=== PATIENT | male | born 1960 | race African-American/Black ===

== ENCOUNTER 2017-04-10 09:00 | Emergency (ER) | payer MEDICAID ==
[~2017-04-10] VITALS: Ht 177.8 cm; Wt 75.0 kg
[2017-04-10 09:02] VITALS: BP 142/83
== END 2017-04-10 09:45 | disposition home or self-care (01) ==
LOC: ED 09:39
DX: L02.414 Cutaneous abscess of left upper limb (principal)
CPT/HCPCS: 10060; 99283

== ENCOUNTER 2017-08-29 20:41 | Emergency (ER) | payer MEDICAID ==
[~2017-08-29] VITALS: Ht 177.8 cm; Wt 75.0 kg
[~2017-08-29 20:41] MED LIST: CARV3.12 PO; LISI1POW PO
[2017-08-29 20:43] VITALS: BP 180/103
[2017-08-29] MEDS ORDERED: BACITRACIN ZINC OINT 500U/GM, 0.9 GM ONE (21:19)
== END 2017-08-29 22:11 | disposition home or self-care (01) ==
LOC: ED 21:30
DX: S50.861A Insect bite (nonvenomous) of right forearm, initial encounter (principal); I10 Essential (primary) hypertension; J44.9 Chronic obstructive pulmonary disease, unspecified; W57.XXXA Bitten or stung by nonvenomous insect and other nonvenomous arthropods, initial encounter; Y93.89 Activity, other specified; Y92.89 Other specified places as the place of occurrence of the external cause; Y99.8 Other external cause status
CPT/HCPCS: 99281

== ENCOUNTER 2018-01-25 19:51 | Emergency (ER) | payer MEDICAID ==
[~2018-01-25] VITALS: Ht 177.8 cm; Wt 70.0 kg
[2018-01-25 19:57] VITALS: BP 137/85
[2018-01-25] MEDS ORDERED: CEPHALEXIN 500 MG CAPSULE ONE (20:23)
[2018-01-25] MEDS ORDERED: CEPHALEXIN 500 MG CAPSULE PO ONE (20:30)
== END 2018-01-25 20:35 | disposition home or self-care (01) ==
LOC: ED 20:10
DX: L02.414 Cutaneous abscess of left upper limb (principal); I11.9 Hypertensive heart disease without heart failure; J44.9 Chronic obstructive pulmonary disease, unspecified; Z85.9 Personal history of malignant neoplasm, unspecified
CPT/HCPCS: 99283

== ENCOUNTER 2018-07-04 10:21 | Inpatient (IN) | payer MEDICAID ==
[~2018-07-04] VITALS: Ht 177.8 cm; Wt 65.3 kg
[2018-07-04 12:07] LABS: MEAN CORPUSCULAR HEMOGLOBIN 30.7 pg (27.5-34.5); MEAN CORPUSCULAR HGB CONC 34.4 g/dL (33.2-36.2); MEAN CORPUSCULAR VOLUME 89.2 fL (81-97); MEAN PLATELET VOLUME 8.1 fL (7.4-10.4); PLATELET COUNT 385 x10^3/uL (130-400); RED BLOOD COUNT 5.68 x10^6/uL (4.38-5.82); RED CELL DISTRIBUTION WIDTH 15.4 % (9.4-14.8)
[2018-07-04 12:20] LABS: ALANINE AMINOTRANSFERASE 21 U/L (12-78); ALBUMIN 3.5 g/dL (3.4-5.0); ANION GAP 9 mmol/L (5-15); CALCIUM 9.5 mg/dL (8.5-10.1); CHLORIDE 100 mmol/L (98-107); CREATININE 2.58 mg/dL (0.7-1.3); MD YES
[2018-07-04 12:21] LABS: BAND#(MANUAL) 1.44 x10^3/uL; BANDS%(MANUAL) 6 % (0-7); EOS#(MANUAL) 0.24 x10^3/uL (0.0-0.4); EOS% (MANUAL) 1 % (1-7); LYMPH#(MANUAL) 0.96 x10^3/uL (1-3.4); LYMPHS% (MANUAL) 4 % (22-44); MONOS#(MANUAL) 0.72 x10^3/uL (0.3-2.7); MONOS% (MANUAL) 3 % (2-9); SEG#(MANUAL) 20.64 x10^3/uL (1.8-6.8); SEGS% (MANUAL) 86 % (42-75)
[2018-07-04 12:22] LABS: <PLATELET ESTIMATE> ADEQUATE; <PLT MORPHOLOGY> NORMAL PLT MORPH; <RBC MORPHOLOGY> NORMAL; ALKALINE PHOSPHATASE 142 U/L (45-117); BILIRUBIN,TOTAL 1.1 mg/dL (0.2-1.0); PMNS WITH VACUOLES 1+; TOTAL PROTEIN 8.3 g/dL (6.4-8.2)
--- NOTE | 2018-07-04 13:15 | NUR ---
FIRST CONTACT WITH PT. ASSUMING PT CARE AT THIS TIME.
--- NOTE | 2018-07-04 13:17 | NUR ---
58 Y/O MALE PRESENTS TO ED WITH C/O "MY LOWER BACK AND WHERE MY LEG MEET HURT. I AM HAVING TROUBLE CATHING MYSELF. SOMETIMES URINE COMES OUT BEFORE I CAN CATH. IT'S BEEN GOING ON FOR ABOUT 2 DAYS." PT PLACED ON CONT PULSE OX,NIBP. NO C/O N/V/D, TRAUMA, SYNCOPE, CP, SOB.
--- NOTE | 2018-07-04 13:38 | NUR ---
PT RESTING ON GURNEY. NO ACUTE DISTRESS NOTED. PT STATES "I JUST FEEL BAD." NO NEEDS REQUESTED AT THIS TIME. UA SENT TO LAB.
[2018-07-04 13:57] LABS: MICROSCOPIC AUTO
[2018-07-04 14:08] LABS: CULTURE INDICATED? YES
[2018-07-04] MEDS ORDERED: CEFTRIAXONE PMX 1GM/50ML 50 ML ONE (14:50)
--- NOTE | 2018-07-04 14:57 | NUR ---
LATE ENTRY FOR 1440 PT RESTING ON GURMATAMORAS. FRIEND BEDSIDE. NO ACUTE DISTRESS NOTED. NO NEEDS REQUESTED AT THIS TIME.
[2018-07-04] MEDS ORDERED: CEFTRIAXONE PMX 1GM/50ML 50 ML IVPB ONE (15:00)
--- NOTE | 2018-07-04 16:01 | NUR ---
pt resting on gurney. in process of getting PIV ACCESS. PT AWARE OF ABX NEEDED. NO NEEDS REQUESTED AT THIS TIME.
--- NOTE | 2018-07-04 16:40 | NUR ---
PIV ESTABLISHED BY ANOTHER NURSING CENTER TUTOR. PT TOLERATED WITH NO COMPLICATIONS.
--- NOTE | 2018-07-04 16:54 | NUR ---
VARGAS INSERTED. PT TOLERATED WITH NO COMPLICATIONS. BEDSIDE. NO ACUTE DISTRESS NOTED. NO NEEDS REQUESTED AT THIS TIME.
--- NOTE | 2018-07-04 17:49 | NUR ---
PT RESTING ONGURNEY. NO ACUTE DISTRESS NOTED. PILLOW PLACED IN BETWEEN PT LEGS. SIGNIFICANT OTHER BEDSIDE. NO NEEDS REQUESTED AT THIS TIME.
[2018-07-04] MEDS ORDERED: CEFTRIAXONE PMX 2GM/50ML 50 ML IV SCH (18:00)
[2018-07-04] MEDS ORDERED: ONDANSETRON 2MG/ML, 2ML IVPush PRN (18:00)
[2018-07-04] MEDS ORDERED: ONDANSETRON ODT 4 MG PO PRN (18:00)
[2018-07-04] MEDS ORDERED: LABETALOL 5MG/ML, 20ML IVPush PRN (18:00)
[2018-07-04] MEDS ORDERED: POLYETHYLENE GLYCOL 17 GM PACKET PO PRN (18:00)
[2018-07-04 18:03] LABS: FREE T4 (FREE THYROXINE) 1.61 ng/dL (0.76-1.46)
[2018-07-04] MEDS ORDERED: CEFTRIAXONE PMX 2GM/50ML 50 ML ONE (18:58)
[2018-07-04] MEDS ORDERED: HEPARIN 5,000 UNITS/ML, 1ML ONE (18:58)
--- NOTE | 2018-07-04 19:02 | NUR ---
BEDSIDE REPORT TO STANISLAW DAVIS.
--- NOTE | 2018-07-04 19:04 | NUR ---
PT SLEEPING ON GURNEY. DISCUSSED POC WITH SIGNIFICANT OTHER. RESPS EQUAL AND UNLABORED. WILL CONTINUE TO MONITOR.
--- NOTE | 2018-07-04 19:05 | NUR ---
ASSUMED CARE OF PATIENT. RPEORT GIVEN FROM STANISLAW EAGLE SPOKE WITH JANEL MALDONADO (HOSPITALIST) AWAITING ORDERS
--- NOTE | 2018-07-04 19:26 | NUR ---
SPOKE WITH JOEL, INSTRUMENT REPAIR SUPERVISOR PT HAS A 101 TEMP. JOEL TO PUT IN FOR FLUIDS AND TYLENOL. JUSTIN, PRIMARY RN IS AWARE.
[2018-07-04] MEDS ORDERED: ACETAMINOPHEN 500 MG TABLET PO ONE (19:30)
[2018-07-04] MEDS ORDERED: ACETAMINOPHEN 500 MG TABLET ONE (19:31)
--- NOTE | 2018-07-04 19:34 | NUR ---
PT HAD THREE BLANKETS ON WITH THE HEATER. HEATER TURNED OFF. EXPLAINED TO PATIENT THAT HE HAS A FEVER. TYLENOL GIVEN. STANISLAW ANDERSON AWARE. PT TRASFERRED TO FLOOR.
[2018-07-04] MEDS ORDERED: CEFTRIAXONE PMX 1GM/50ML 50 ML IV ONE (20:10)
[2018-07-04] MEDS: SODIUM CHLORIDE 0.9% 1,000 ML IV SCH (20:28)
[2018-07-04] MEDS: HEPARIN 5,000 UNITS/ML, 1ML SQ SCH (20:28)
[2018-07-04 20:43] VITALS: BP 135/82
--- NOTE | 2018-07-04 20:44 | NUR ---
Sage rogers in [facility] - 07/04/18 at 2045 by ELLIE PT STATES, "I WANT TO GO HOME I ONLY LIVE A FEW BLOCKS AWAY. I AM READY TO GO." PT DISCHARGED
[2018-07-05 01:16] VITALS: BP 120/68
[2018-07-05] MEDS: HEPARIN 5,000 UNITS/ML, 1ML SQ SCH ×3 (05:06→22:15)
[2018-07-05 05:43] LABS: MEAN CORPUSCULAR HEMOGLOBIN 30.9 pg (27.5-34.5); MEAN CORPUSCULAR HGB CONC 34.9 g/dL (33.2-36.2); MEAN CORPUSCULAR VOLUME 88.4 fL (81-97); MEAN PLATELET VOLUME 8.8 fL (7.4-10.4); PLATELET COUNT 298 x10^3/uL (130-400); RED BLOOD COUNT 4.97 x10^6/uL (4.38-5.82); RED CELL DISTRIBUTION WIDTH 15.6 % (9.4-14.8)
[2018-07-05 05:48] LABS: CHLORIDE 104 mmol/L (98-107)
[2018-07-05 06:06] LABS: ALANINE AMINOTRANSFERASE 13 U/L (12-78); ALBUMIN 2.6 g/dL (3.4-5.0); ALKALINE PHOSPHATASE 116 U/L (45-117); ANION GAP 9 mmol/L (5-15); BILIRUBIN,TOTAL 0.7 mg/dL (0.2-1.0); CALCIUM 8.4 mg/dL (8.5-10.1); CREATININE 1.62 mg/dL (0.7-1.3); THYROID STIMULATING HORMONE 0.113 mIU/L (0.358-3.740); TOTAL PROTEIN 6.7 g/dL (6.4-8.2)
[2018-07-05 06:24] LABS: BASOPHILS # (AUTO) 0.01 x10^3/uL (0-0.1); BASOPHILS % (AUTO) 0 % (0-1); EOSINOPHILS # (AUTO) 0.06 x10^3/uL (0-0.4); EOSINOPHILS % (AUTO) 0 % (1-7); LYMPHOCYTES # (AUTO) 0.53 x10^3/uL (1-3.4); LYMPHOCYTES % (AUTO) 2 % (22-44); MD SCAN; MONOCYTES # (AUTO) 1.24 x10^3/uL (0.2-0.8); MONOCYTES % (AUTO) 6 % (2-9); NEUTROPHILS % (AUTO) 92 % (42-75)
[2018-07-05] MEDS: SODIUM CHLORIDE 0.9% 1,000 ML IV SCH ×2 (06:38→16:32)
[2018-07-05 07:27] VITALS: BP 108/71
[2018-07-05] MEDS: LISINOPRIL 5 MG TABLET PO SCH (09:22)
[2018-07-05] MEDS: CARVEDILOL 3.125 MG TABLET PO SCH (09:22)
[2018-07-05] MEDS: SENNA/DOCUSATE TABLET PO SCH (09:23)
[2018-07-05 12:50] VITALS: BP 112/70
[2018-07-05] MEDS: CEFTRIAXONE PMX 2GM/50ML 50 ML IV SCH (16:30)
[2018-07-05 19:22] VITALS: BP 108/68
[2018-07-06] MEDS: SODIUM CHLORIDE 0.9% 1,000 ML IV SCH ×3 (00:55→17:35)
[2018-07-06 04:21] VITALS: BP 130/76
[2018-07-06 05:01] LABS: MEAN CORPUSCULAR HGB CONC 34.8 g/dL (33.2-36.2); MEAN CORPUSCULAR VOLUME 89.1 fL (81-97); MEAN PLATELET VOLUME 8.9 fL (7.4-10.4); PLATELET COUNT 301 x10^3/uL (130-400); RED BLOOD COUNT 4.38 x10^6/uL (4.38-5.82); RED CELL DISTRIBUTION WIDTH 15.5 % (9.4-14.8)
[2018-07-06 05:10] LABS: ALBUMIN 2.2 g/dL (3.4-5.0); ANION GAP 8 mmol/L (5-15); CALCIUM 8.4 mg/dL (8.5-10.1); CHLORIDE 104 mmol/L (98-107)
[2018-07-06 05:15] LABS: ALANINE AMINOTRANSFERASE 13 U/L (12-78); ALKALINE PHOSPHATASE 92 U/L (45-117); BILIRUBIN,TOTAL 0.7 mg/dL (0.2-1.0); CREATININE 1.14 mg/dL (0.7-1.3); TOTAL PROTEIN 6.1 g/dL (6.4-8.2)
[2018-07-06 05:26] LABS: BASOPHILS # (AUTO) 0.01 x10^3/uL (0-0.1); BASOPHILS % (AUTO) 0 % (0-1); EOSINOPHILS # (AUTO) 0.28 x10^3/uL (0-0.4); EOSINOPHILS % (AUTO) 2 % (1-7); LYMPHOCYTES % (AUTO) 6 % (22-44); MD SCAN; MONOCYTES # (AUTO) 0.92 x10^3/uL (0.2-0.8); MONOCYTES % (AUTO) 6 % (2-9); NEUTROPHILS # (AUTO) 12.98 x10^3/uL (1.8-6.8); NEUTROPHILS % (AUTO) 86 % (42-75)
[2018-07-06] MEDS: HEPARIN 5,000 UNITS/ML, 1ML SQ SCH ×3 (06:29→22:19)
[2018-07-06] MEDS ORDERED: POTASSIUM CHLORIDE 20 MEQ TAB.ER.PRT PO ONE ×2 (07:00→11:30)
[2018-07-06 08:07] VITALS: BP 133/77
[2018-07-06] MEDS: SENNA/DOCUSATE TABLET PO SCH ×2 (09:00→09:03)
[2018-07-06] MEDS: LISINOPRIL 5 MG TABLET PO SCH (09:03)
[2018-07-06] MEDS: CARVEDILOL 3.125 MG TABLET PO SCH (09:03)
[2018-07-06] MEDS: CEFTRIAXONE PMX 2GM/50ML 50 ML IV SCH (15:32)
[2018-07-06 15:33] VITALS: BP 113/70
[2018-07-06] MEDS ORDERED: ACETAMINOPHEN 325 MG TABLET PO PRN (17:00)
[2018-07-06] MEDS: MEROPENEM 1 GM in SODIUM CHLORIDE 0.9% 100 ML IV SCH (17:35)
[2018-07-06 19:04] VITALS: BP 93/56
[2018-07-07] MEDS: MEROPENEM 1 GM in SODIUM CHLORIDE 0.9% 100 ML IV SCH ×3 (00:39→22:44)
[2018-07-07] MEDS: SODIUM CHLORIDE 0.9% 1,000 ML IV SCH ×3 (00:41→16:23)
[2018-07-07 04:24] VITALS: BP 126/77
[2018-07-07 04:30] LABS: MEAN CORPUSCULAR HEMOGLOBIN 30.3 pg (27.5-34.5); MEAN CORPUSCULAR HGB CONC 34.2 g/dL (33.2-36.2); MEAN CORPUSCULAR VOLUME 88.5 fL (81-97); MEAN PLATELET VOLUME 8.7 fL (7.4-10.4); PLATELET COUNT 345 x10^3/uL (130-400); RED BLOOD COUNT 4.53 x10^6/uL (4.38-5.82); RED CELL DISTRIBUTION WIDTH 15.5 % (9.4-14.8)
[2018-07-07 04:41] LABS: CALCIUM 7.9 mg/dL (8.5-10.1); CHLORIDE 110 mmol/L (98-107)
[2018-07-07 04:47] LABS: ALANINE AMINOTRANSFERASE 18 U/L (12-78); ALKALINE PHOSPHATASE 103 U/L (45-117); ANION GAP 6 mmol/L (5-15); BILIRUBIN,TOTAL 0.4 mg/dL (0.2-1.0); CREATININE 0.94 mg/dL (0.7-1.3); TOTAL PROTEIN 5.8 g/dL (6.4-8.2)
[2018-07-07 04:56] LABS: BASOPHILS # (AUTO) 0.02 x10^3/uL (0-0.1); BASOPHILS % (AUTO) 0 % (0-1); EOSINOPHILS # (AUTO) 0.42 x10^3/uL (0-0.4); EOSINOPHILS % (AUTO) 3 % (1-7); LYMPHOCYTES % (AUTO) 7 % (22-44); MD SCAN; MONOCYTES # (AUTO) 1.09 x10^3/uL (0.2-0.8); MONOCYTES % (AUTO) 9 % (2-9); NEUTROPHILS # (AUTO) 10.01 x10^3/uL (1.8-6.8); NEUTROPHILS % (AUTO) 81 % (42-75)
[2018-07-07] MEDS: HEPARIN 5,000 UNITS/ML, 1ML SQ SCH ×3 (06:07→21:40)
[2018-07-07] MEDS ORDERED: MAGNESIUM SULFATE PMX 4GM/100M 100 ML IV ONE (07:00)
[2018-07-07 07:53] VITALS: BP 143/83
[2018-07-07] MEDS: NEUTRA PHOS K 250 MG TABLET PO SCH ×3 (08:33→21:40)
[2018-07-07] MEDS: LISINOPRIL 5 MG TABLET PO SCH (08:34)
[2018-07-07] MEDS: CARVEDILOL 3.125 MG TABLET PO SCH (08:35)
[2018-07-07] MEDS: SENNA/DOCUSATE TABLET PO SCH (09:00)
[2018-07-07 13:09] VITALS: BP 147/87
[2018-07-07 20:56] VITALS: BP 132/85
[2018-07-08 02:10] VITALS: BP 120/83
[2018-07-08 05:22] LABS: BASOPHILS # (AUTO) 0.06 x10^3/uL (0-0.1); BASOPHILS % (AUTO) 1 % (0-1); EOSINOPHILS # (AUTO) 0.49 x10^3/uL (0-0.4); EOSINOPHILS % (AUTO) 4 % (1-7); LYMPHOCYTES # (AUTO) 1.73 x10^3/uL (1-3.4); LYMPHOCYTES % (AUTO) 16 % (22-44); MD NO; MEAN CORPUSCULAR HEMOGLOBIN 30.2 pg (27.5-34.5); MEAN CORPUSCULAR HGB CONC 34.3 g/dL (33.2-36.2); MEAN CORPUSCULAR VOLUME 88.3 fL (81-97); MEAN PLATELET VOLUME 8.6 fL (7.4-10.4); MONOCYTES # (AUTO) 1.21 x10^3/uL (0.2-0.8); MONOCYTES % (AUTO) 11 % (2-9); NEUTROPHILS # (AUTO) 7.67 x10^3/uL (1.8-6.8); NEUTROPHILS % (AUTO) 69 % (42-75); PLATELET COUNT 381 x10^3/uL (130-400); RED BLOOD COUNT 4.53 x10^6/uL (4.38-5.82); RED CELL DISTRIBUTION WIDTH 15.3 % (9.4-14.8)
[2018-07-08 05:32] LABS: ALBUMIN 2.1 g/dL (3.4-5.0); CALCIUM 7.8 mg/dL (8.5-10.1); CHLORIDE 107 mmol/L (98-107)
[2018-07-08 05:38] LABS: ALANINE AMINOTRANSFERASE 22 U/L (12-78); ALKALINE PHOSPHATASE 86 U/L (45-117); ANION GAP 6 mmol/L (5-15); BILIRUBIN,TOTAL 0.4 mg/dL (0.2-1.0); CREATININE 0.81 mg/dL (0.7-1.3); TOTAL PROTEIN 5.7 g/dL (6.4-8.2)
[2018-07-08] MEDS: MEROPENEM 1 GM in SODIUM CHLORIDE 0.9% 100 ML IV SCH ×3 (05:43→22:46)
[2018-07-08] MEDS: SODIUM CHLORIDE 0.9% 1,000 ML IV SCH ×3 (05:43→14:54)
[2018-07-08] MEDS: HEPARIN 5,000 UNITS/ML, 1ML SQ SCH ×3 (05:44→22:47)
[2018-07-08 08:00] VITALS: BP 131/79
[2018-07-08] MEDS: CARVEDILOL 3.125 MG TABLET PO SCH (08:23)
[2018-07-08] MEDS: LISINOPRIL 5 MG TABLET PO SCH (08:23)
[2018-07-08] MEDS: SENNA/DOCUSATE TABLET PO SCH (08:24)
[2018-07-08] MEDS ORDERED: POTASSIUM CHLORIDE 20 MEQ TAB.ER.PRT PO ONE ×2 (11:30→14:30)
[2018-07-08 13:07] VITALS: BP 134/75
[2018-07-08 20:00] VITALS: BP 135/73
[2018-07-09 00:27] VITALS: BP 143/82
[2018-07-09] MEDS: SODIUM CHLORIDE 0.9% 1,000 ML IV SCH ×3 (01:39→17:02)
[2018-07-09] MEDS: MEROPENEM 1 GM in SODIUM CHLORIDE 0.9% 100 ML IV SCH ×3 (05:56→21:54)
[2018-07-09] MEDS: HEPARIN 5,000 UNITS/ML, 1ML SQ SCH ×3 (05:56→21:54)
[2018-07-09 07:00] VITALS: BP 129/83
[2018-07-09] MEDS: LISINOPRIL 5 MG TABLET PO SCH (08:12)
[2018-07-09] MEDS: CARVEDILOL 3.125 MG TABLET PO SCH (08:12)
[2018-07-09] MEDS: SENNA/DOCUSATE TABLET PO SCH (08:12)
[2018-07-09 08:58] LABS: BASOPHILS # (AUTO) 0.02 x10^3/uL (0-0.1); BASOPHILS % (AUTO) 0 % (0-1); EOSINOPHILS # (AUTO) 0.49 x10^3/uL (0-0.4); EOSINOPHILS % (AUTO) 5 % (1-7); LYMPHOCYTES # (AUTO) 1.62 x10^3/uL (1-3.4); LYMPHOCYTES % (AUTO) 15 % (22-44); MD NO; MEAN CORPUSCULAR HEMOGLOBIN 29.5 pg (27.5-34.5); MEAN CORPUSCULAR HGB CONC 33.2 g/dL (33.2-36.2); MEAN PLATELET VOLUME 8.5 fL (7.4-10.4); MONOCYTES % (AUTO) 3 % (2-9); NEUTROPHILS # (AUTO) 8.43 x10^3/uL (1.8-6.8); NEUTROPHILS % (AUTO) 78 % (42-75); PLATELET COUNT 435 x10^3/uL (130-400); RED BLOOD COUNT 4.77 x10^6/uL (4.38-5.82); RED CELL DISTRIBUTION WIDTH 15.1 % (9.4-14.8)
[2018-07-09 09:04] LABS: ALANINE AMINOTRANSFERASE 40 U/L (12-78); ALBUMIN 2.3 g/dL (3.4-5.0); ANION GAP 5 mmol/L (5-15); CALCIUM 8.3 mg/dL (8.5-10.1); CHLORIDE 109 mmol/L (98-107); CREATININE 0.86 mg/dL (0.7-1.3)
[2018-07-09 09:07] LABS: ALKALINE PHOSPHATASE 101 U/L (45-117); BILIRUBIN,TOTAL 0.2 mg/dL (0.2-1.0); TOTAL PROTEIN 5.9 g/dL (6.4-8.2)
[2018-07-09] MEDS ORDERED: MAGNESIUM SULFATE IN WATER 50 ML IV ONE (12:00)
[2018-07-09] MEDS: NEUTRA PHOS K 250 MG TABLET PO SCH ×3 (12:08→20:14)
[2018-07-09 14:00] VITALS: BP 124/72
[2018-07-09 19:41] VITALS: BP 139/89
[2018-07-10 01:07] VITALS: BP 123/70
[2018-07-10] MEDS: SODIUM CHLORIDE 0.9% 1,000 ML IV SCH (01:13)
[2018-07-10] MEDS: HEPARIN 5,000 UNITS/ML, 1ML SQ SCH (05:52)
[2018-07-10] MEDS: MEROPENEM 1 GM in SODIUM CHLORIDE 0.9% 100 ML IV SCH (05:53)
[2018-07-10 06:07] LABS: BASOPHILS # (AUTO) 0.15 x10^3/uL (0-0.1); BASOPHILS % (AUTO) 1 % (0-1); EOSINOPHILS # (AUTO) 0.45 x10^3/uL (0-0.4); EOSINOPHILS % (AUTO) 4 % (1-7); LYMPHOCYTES # (AUTO) 2.05 x10^3/uL (1-3.4); LYMPHOCYTES % (AUTO) 17 % (22-44); MD NO; MEAN CORPUSCULAR HEMOGLOBIN 30.1 pg (27.5-34.5); MEAN CORPUSCULAR HGB CONC 33.9 g/dL (33.2-36.2); MEAN CORPUSCULAR VOLUME 88.9 fL (81-97); MEAN PLATELET VOLUME 8.5 fL (7.4-10.4); MONOCYTES # (AUTO) 0.88 x10^3/uL (0.2-0.8); MONOCYTES % (AUTO) 7 % (2-9); NEUTROPHILS # (AUTO) 8.49 x10^3/uL (1.8-6.8); NEUTROPHILS % (AUTO) 71 % (42-75); PLATELET COUNT 514 x10^3/uL (130-400); RED BLOOD COUNT 4.47 x10^6/uL (4.38-5.82); RED CELL DISTRIBUTION WIDTH 15.6 % (9.4-14.8)
[2018-07-10 06:20] LABS: ALANINE AMINOTRANSFERASE 52 U/L (12-78); ALBUMIN 2.4 g/dL (3.4-5.0); ANION GAP 5 mmol/L (5-15); CALCIUM 8.3 mg/dL (8.5-10.1); CHLORIDE 109 mmol/L (98-107); CREATININE 0.79 mg/dL (0.7-1.3)
[2018-07-10 06:22] LABS: ALKALINE PHOSPHATASE 110 U/L (45-117); BILIRUBIN,TOTAL 0.2 mg/dL (0.2-1.0); TOTAL PROTEIN 6.1 g/dL (6.4-8.2)
[2018-07-10 07:30] VITALS: BP 128/78
[2018-07-10] MEDS: SENNA/DOCUSATE TABLET PO SCH (09:00)
[2018-07-10] MEDS: CARVEDILOL 3.125 MG TABLET PO SCH (09:03)
[2018-07-10] MEDS: LISINOPRIL 5 MG TABLET PO SCH (09:04)
[2018-07-10] MEDS ORDERED: LEVO500T8 PO (10:10)
[2018-07-10] MEDS ORDERED: PNEUMOCOCCAL 23 VACCINE IM-VACC ONE (12:00)
== END 2018-07-10 12:30 | disposition home or self-care (01) | DRG 871 ==
LOC: ED 13:27 → EDIP 17:46 → 3NE 19:38 → 3NW 07-05 07:00
PROVIDERS: ADMIT Hospitalist; ATTEND Hospitalist
PROC: 02HV33Z Insertion of Infusion Device into Superior Vena Cava, Percutaneous Approach (ICD-10-PCS; principal; 2018-07-08)
PROC: B5181ZA Fluoroscopy of Superior Vena Cava using Low Osmolar Contrast, Guidance (ICD-10-PCS; 2018-07-08)
PROC: B548ZZA Ultrasonography of Superior Vena Cava, Guidance (ICD-10-PCS; 2018-07-08)
DX: A41.9 Sepsis, unspecified organism (principal); R53.2 Functional quadriplegia; N13.6 Pyonephrosis; T83.518A Infection and inflammatory reaction due to other urinary catheter, initial encounter; G82.20 Paraplegia, unspecified; N17.9 Acute kidney failure, unspecified; D64.9 Anemia, unspecified; E78.5 Hyperlipidemia, unspecified; F17.210 Nicotine dependence, cigarettes, uncomplicated; I10 Essential (primary) hypertension; I25.10 Atherosclerotic heart disease of native coronary artery without angina pectoris; I71.4 Abdominal aortic aneurysm, without rupture; J44.9 Chronic obstructive pulmonary disease, unspecified; M43.00 Spondylolysis, site unspecified; N31.9 Neuromuscular dysfunction of bladder, unspecified; N39.490 Overflow incontinence; Y84.6 Urinary catheterization as the cause of abnormal reaction of the patient, or of later complication, without mention of misadventure at the time of the procedure; Z86.61 Personal history of infections of the central nervous system; Z95.5 Presence of coronary angioplasty implant and graft; B96.1 Klebsiella pneumoniae [K. pneumoniae] as the cause of diseases classified elsewhere; B96.5 Pseudomonas (aeruginosa) (mallei) (pseudomallei) as the cause of diseases classified elsewhere; B96.89 Other specified bacterial agents as the cause of diseases classified elsewhere
CPT/HCPCS: 36415; 36573; 51702; 74176; 76870; 80053; 81001; 83690; 83735; 84100; 84439; 84443; 85025; 87040; 87077; 87086; 87186; 90732; 96365; 99285; G0378; J0696; J1644; J2185; C1751; J3475; J7030

== ENCOUNTER 2018-09-17 21:38 | Emergency (ER) | payer MEDICAID ==
[~2018-09-17] VITALS: Ht 170.2 cm; Wt 79.0 kg
[~2018-09-17 21:38] MED LIST changes: +LEVO500T8 PO
[2018-09-17 21:43] VITALS: BP 168/95
--- NOTE | 2018-09-17 21:51 | NUR ---
MD SAW PT IN TRIAGE AND GIVEN STRAIGHT CATHETER SUPPLIESx2.
== END 2018-09-17 22:14 | disposition home or self-care (01) ==
LOC: ED 22:12
DX: T83.091A Other mechanical complication of indwelling urethral catheter, initial encounter (principal)
CPT/HCPCS: 99281

== ENCOUNTER 2018-12-28 10:39 | Emergency (ER) | payer MEDICAID ==
[~2018-12-28] VITALS: Ht 180.3 cm; Wt 75.0 kg
--- NOTE | 2018-12-28 10:43 | NUR ---
PATIENT MARIANELA GAO FROM HOME FOR SOB, HX OF COPD, DENIES CP. PATIENT WHEELCHAIR BOUND DUE TO PARAPLEGIA DUE TO ABSCESS ON SPINE (T2). WHEELCHAIR AT BEDSIDE. BP 173/110 UPON ARRIVAL TO [facility], HX OF HTN, PATIENT REPORTS NON-COMPLIANCE WITH MEDICATIONS X 3 WEEKS. ALSO REPORTS HX OF [place] WITH CARDIAC STENTS X2. PATIENT DENIES PAIN AT THIS TIME. PRODUCT DESIGN MANAGER ON PATIENT, CALL LIGHT WITHIN REACH, AWAITING MD GREENBERG, NADN. Pineda+OX4. Addendum: 12/28/18 at 1052 by GINGER PATIENT REPORTS SUDDEN ONSET OF SOB WAKING HIM UP AT 0200 THIS AM. Addendum: 12/28/18 at 1110 by GINGER XRAY AND LAB AT BEDSIDE.
[2018-12-28] MEDS ORDERED: STATIN (10:48)
[2018-12-28] MEDS ORDERED: ASPIRIN 81 MG TABLET CHEW ONE (11:08)
[2018-12-28] MEDS ORDERED: ALBUTEROL/IPRATROPIUM 2.5MG/0.5MG, 3 ML ONE (11:18)
[2018-12-28] MEDS ORDERED: ASPIRIN 81 MG TABLET CHEW PO ONE (11:30)
[2018-12-28] MEDS ORDERED: SODIUM CHLORIDE FLUSH 10ML SYR IVF ONE (11:30)
[2018-12-28] MEDS ORDERED: ALBUTEROL/IPRATROPIUM 2.5MG/0.5MG, 3 ML NPPB ONE (11:30)
[2018-12-28 11:38] LABS: BASOPHILS # (AUTO) 0.01 x10^3/uL (0-0.1); BASOPHILS % (AUTO) 0 % (0-1); EOSINOPHILS # (AUTO) 0.05 x10^3/uL (0-0.4); EOSINOPHILS % (AUTO) 0 % (1-7); LYMPHOCYTES # (AUTO) 1.33 x10^3/uL (1-3.4); LYMPHOCYTES % (AUTO) 10 % (22-44); MD NO; MEAN CORPUSCULAR HEMOGLOBIN 29.5 pg (27.5-34.5); MEAN CORPUSCULAR HGB CONC 33.2 g/dL (33.2-36.2); MEAN CORPUSCULAR VOLUME 88.9 fL (81-97); MEAN PLATELET VOLUME 7.4 fL (7.4-10.4); MONOCYTES # (AUTO) 0.59 x10^3/uL (0.2-0.8); MONOCYTES % (AUTO) 4 % (2-9); NEUTROPHILS % (AUTO) 86 % (42-75); PLATELET COUNT 539 x10^3/uL (130-400); RED BLOOD COUNT 5.21 x10^6/uL (4.38-5.82); RED CELL DISTRIBUTION WIDTH 15.1 % (9.4-14.8)
[2018-12-28 11:52] LABS: ALANINE AMINOTRANSFERASE 24 U/L (12-78); ALBUMIN 3.7 g/dL (3.4-5.0); ANION GAP 8 mmol/L (5-15); CHLORIDE 104 mmol/L (98-107); CREATININE 0.94 mg/dL (0.7-1.3)
[2018-12-28 11:55] LABS: ALKALINE PHOSPHATASE 151 U/L (45-117); BILIRUBIN,TOTAL 0.8 mg/dL (0.2-1.0); TOTAL PROTEIN 7.8 g/dL (6.4-8.2); TROPONIN I < 0.015 ng/mL (0.000-0.045)
--- NOTE | 2018-12-28 12:31 | NUR ---
RESUTLS BACK, CHART UP FOR RECHECK. VS UPDATED IN CHART. PATIENT SITTING IN [employer] PLAYING ON PHONE,
--- NOTE | 2018-12-28 13:51 | NUR ---
Patient/Caregiver given discharge instructions and they have confirmed that they understand the instructions. Patient to DC desk via wheelchair by self.
[2018-12-28 13:52] VITALS: BP 187/99
== END 2018-12-28 13:52 | disposition home or self-care (01) ==
LOC: ED 12:37
DX: J44.1 Chronic obstructive pulmonary disease with (acute) exacerbation (principal); I10 Essential (primary) hypertension; F17.200 Nicotine dependence, unspecified, uncomplicated; Z85.9 Personal history of malignant neoplasm, unspecified
CPT/HCPCS: 36415; 71045; 80053; 83880; 84484; 85025; 93005; 94640; 99284; J7620

== ENCOUNTER 2019-01-21 04:54 | Emergency (ER) | payer MEDICAID ==
[~2019-01-21] VITALS: Ht 177.8 cm; Wt 76.0 kg
[~2019-01-21 04:54] MED LIST changes: +STATIN
[2019-01-21] MEDS ORDERED: ALBUTEROL/IPRATROPIUM 2.5MG/0.5MG, 3 ML NPPB ONE (05:30)
[2019-01-21] MEDS ORDERED: ALBUTEROL/IPRATROPIUM 2.5MG/0.5MG, 3 ML ONE (05:39)
[2019-01-21 05:51] LABS: ALBUMIN 3.8 g/dL (3.4-5.0); ANION GAP 8 mmol/L (5-15); CALCIUM 9.2 mg/dL (8.5-10.1); CHLORIDE 106 mmol/L (98-107)
[2019-01-21 05:56] LABS: BASOPHILS # (AUTO) 0.03 x10^3/uL (0-0.1); BASOPHILS % (AUTO) 0 % (0-1); EOSINOPHILS # (AUTO) 0.19 x10^3/uL (0-0.4); EOSINOPHILS % (AUTO) 2 % (1-7); LYMPHOCYTES # (AUTO) 1.41 x10^3/uL (1-3.4); LYMPHOCYTES % (AUTO) 12 % (22-44); MD NO; MEAN CORPUSCULAR HEMOGLOBIN 30.5 pg (27.5-34.5); MEAN CORPUSCULAR HGB CONC 33.8 g/dL (33.2-36.2); MEAN CORPUSCULAR VOLUME 90.4 fL (81-97); MEAN PLATELET VOLUME 8.1 fL (7.4-10.4); MONOCYTES # (AUTO) 0.69 x10^3/uL (0.2-0.8); MONOCYTES % (AUTO) 6 % (2-9); NEUTROPHILS # (AUTO) 9.95 x10^3/uL (1.8-6.8); NEUTROPHILS % (AUTO) 81 % (42-75); PLATELET COUNT 457 x10^3/uL (130-400); RED BLOOD COUNT 5.24 x10^6/uL (4.38-5.82); RED CELL DISTRIBUTION WIDTH 14.9 % (9.4-14.8)
[2019-01-21 05:57] LABS: CREATININE 0.96 mg/dL (0.7-1.3); TROPONIN I < 0.015 ng/mL (0.000-0.045)
--- NOTE | 2019-01-21 06:10 | NUR ---
pt resting in bed, pt a/o x4 and speaking full sentences.
[2019-01-21 06:21] VITALS: BP 152/96
== END 2019-01-21 06:24 | disposition home or self-care (01) ==
LOC: ED 05:17
DX: J44.1 Chronic obstructive pulmonary disease with (acute) exacerbation (principal); I10 Essential (primary) hypertension; F17.200 Nicotine dependence, unspecified, uncomplicated; Z72.9 Problem related to lifestyle, unspecified
CPT/HCPCS: 36415; 71045; 80048; 82040; 83880; 84484; 85025; 93005; 94640; 99284; J7512; J7620

== ENCOUNTER 2019-05-24 05:05 | Observation (INO) | payer MEDICAID ==
[~2019-05-24] VITALS: Ht 177.8 cm; Wt 71.0 kg
[2019-05-24] MEDS ORDERED: SODIUM CHLORIDE FLUSH 10ML SYR IVF ONE (05:30)
[2019-05-24 05:51] LABS: BASOPHILS # (AUTO) 0.05 x10^3/uL (0-0.1); BASOPHILS % (AUTO) 0 % (0-1); EOSINOPHILS # (AUTO) 0.03 x10^3/uL (0-0.4); EOSINOPHILS % (AUTO) 0 % (1-7); LYMPHOCYTES # (AUTO) 0.94 x10^3/uL (1-3.4); LYMPHOCYTES % (AUTO) 8 % (22-44); MD NO; MEAN CORPUSCULAR HGB CONC 33.2 g/dL (33.2-36.2); MEAN CORPUSCULAR VOLUME 90.5 fL (81-97); MEAN PLATELET VOLUME 8.1 fL (7.4-10.4); MONOCYTES # (AUTO) 0.74 x10^3/uL (0.2-0.8); MONOCYTES % (AUTO) 6 % (2-9); NEUTROPHILS # (AUTO) 10.28 x10^3/uL (1.8-6.8); NEUTROPHILS % (AUTO) 85 % (42-75); PLATELET COUNT 256 x10^3/uL (130-400); RED BLOOD COUNT 5.51 x10^6/uL (4.38-5.82); RED CELL DISTRIBUTION WIDTH 14.1 % (9.4-14.8)
[2019-05-24 06:04] LABS: ANION GAP 8 mmol/L (5-15); CALCIUM 9.2 mg/dL (8.5-10.1); CHLORIDE 110 mmol/L (98-107)
[2019-05-24 06:07] LABS: TROPONIN I < 0.015 ng/mL (0.000-0.045)
[2019-05-24] MEDS: NITROGLYCERIN SINGLE TAB 0.4 MG SL PRN ×3 (06:12→06:27)
[2019-05-24] MEDS ORDERED: METOPROLOL 1 MG/ML, 5ML ONE ×2 (06:15→06:23)
[2019-05-24] MEDS: METOPROLOL 1 MG/ML, 5ML IVPush PRN ×2 (06:17→06:26)
[2019-05-24] MEDS ORDERED: LORazepam 1MG TABLET ONE (06:47)
[2019-05-24] MEDS ORDERED: LORazepam 1MG TABLET PO ONE (07:00)
[2019-05-24] MEDS ORDERED: hydrALAzine 20 MG/ML, 1ML IVPush PRN (08:30)
[2019-05-24] MEDS ORDERED: NITROGLYCERIN 0.4 MG BOTTLE (25 TABS) SL PRN (08:30)
[2019-05-24] MEDS ORDERED: NICOTINE 14MG/24 HR PATCH.TD24 TD SCH (08:30)
[2019-05-24] MEDS ORDERED: ACETAMINOPHEN 325 MG TABLET PO PRN (08:30)
[2019-05-24] MEDS ORDERED: ONDANSETRON 2MG/ML, 2ML IVPush PRN (08:30)
[2019-05-24] MEDS ORDERED: morphine SULFATE 10 MG/ML, 1ML IVPush PRN (08:30)
[2019-05-24] MEDS ORDERED: ASPIRIN 81 MG TABLET EC PO SCH (08:30)
[2019-05-24] MEDS ORDERED: TEMAZEPAM 15 MG CAPSULE PO PRN (08:30)
[2019-05-24] MEDS ORDERED: METOPROLOL TARTRATE 50 MG TABLET PO SCH (09:00)
[2019-05-24 11:50] LABS: TROPONIN I < 0.015 ng/mL (0.000-0.045)
[2019-05-24 12:18] VITALS: BP 170/94
[2019-05-24] MEDS ORDERED: ENOXAPARIN 40 MG/0.4 ML SQ SCH (12:30)
[2019-05-24] MEDS ORDERED: ATORVASTATIN 40 MG TABLET PO SCH (21:00)
== END 2019-05-24 16:04 | disposition left against medical advice (07) ==
LOC: ED 06:39 → SUATTDRO 07:42 → EDIP 08:13 → INTOOBSV 08:13 → 5SO 12:22
PROVIDERS: ADMIT Internal Medicine; ATTEND Internal Medicine
DX: R07.9 Chest pain, unspecified (principal); I25.10 Atherosclerotic heart disease of native coronary artery without angina pectoris; R65.10 Systemic inflammatory response syndrome (SIRS) of non-infectious origin without acute organ dysfunction; R53.2 Functional quadriplegia; R06.00 Dyspnea, unspecified; I11.9 Hypertensive heart disease without heart failure; E78.5 Hyperlipidemia, unspecified; J44.9 Chronic obstructive pulmonary disease, unspecified; F17.200 Nicotine dependence, unspecified, uncomplicated; F12.90 Cannabis use, unspecified, uncomplicated; Z95.5 Presence of coronary angioplasty implant and graft; Z86.79 Personal history of other diseases of the circulatory system; Z91.14 Patient's other noncompliance with medication regimen
CPT/HCPCS: 36415; 71045; 80048; 82040; 83880; 84484; 85025; 90472; 93005; 96374; 99285; G0378; J1650

== ENCOUNTER 2019-05-25 13:02 | Emergency (ER) | payer MEDICAID ==
[~2019-05-25] VITALS: Ht 157.5 cm; Wt 73.0 kg
[2019-05-25 13:32] VITALS: BP 171/108
--- NOTE | 2019-05-25 13:44 | NUR ---
PT INSISTS ON USING BATHROOM IN LOBBY BEFORE BEING ESCORTED TO TR1.
--- NOTE | 2019-05-25 14:07 | NUR ---
first contact with pt. pt here to complete stress test, left ama yesterday evening. denies cp. pt denies medical sx. pt's aox4. resps even and unlabored. edmd at bedside to evaluate at this time.
--- NOTE | 2019-05-25 14:54 | NUR ---
at dc, pt states " i wanna see the doctor. i have some questions and it is personal." pt didn't wanna jennifer fontana comes. kiln charger reeducated but pt didn't leave. security paged.
== END 2019-05-25 14:57 | disposition home or self-care (01) ==
LOC: ED 14:50
DX: I10 Essential (primary) hypertension (principal); I25.10 Atherosclerotic heart disease of native coronary artery without angina pectoris; J44.9 Chronic obstructive pulmonary disease, unspecified; Z72.9 Problem related to lifestyle, unspecified
CPT/HCPCS: 93005; 99283

== ENCOUNTER 2019-06-20 09:31 | Emergency (ER) | payer MEDICAID ==
[~2019-06-20] VITALS: Ht 177.8 cm; Wt 66.0 kg
[2019-06-20 10:34] VITALS: BP 159/89
[2019-06-20] MEDS ORDERED: SULFAMETH./TRIMETHOPRIM DS 800MG/160MG TABLET PO ONE (11:30)
[2019-06-20] MEDS ORDERED: CEPHALEXIN 500 MG CAPSULE PO SCH (11:30)
[2019-06-20] MEDS ORDERED: SULFAMETH./TRIMETHOPRIM DS 800MG/160MG TABLET ONE (11:38)
[2019-06-20] MEDS ORDERED: CEPHALEXIN 500 MG CAPSULE ONE (11:39)
[2019-06-20 12:21] LABS: ANION GAP 6 mmol/L (5-15); CALCIUM 8.9 mg/dL (8.5-10.1); CHLORIDE 102 mmol/L (98-107); CREATININE 0.88 mg/dL (0.7-1.3)
[2019-06-20 12:47] LABS: MEAN CORPUSCULAR HEMOGLOBIN 29.5 pg (27.5-34.5); MEAN CORPUSCULAR HGB CONC 33.3 g/dL (33.2-36.2); MEAN CORPUSCULAR VOLUME 88.7 fL (81-97); MEAN PLATELET VOLUME 8.5 fL (7.4-10.4); PLATELET COUNT 492 x10^3/uL (130-400); RED BLOOD COUNT 5.51 x10^6/uL (4.38-5.82); RED CELL DISTRIBUTION WIDTH 13.7 % (9.4-14.8)
[2019-06-20 12:49] LABS: BASOPHILS # (AUTO) 0.01 x10^3/uL (0-0.1); BASOPHILS % (AUTO) 0 % (0-1); EOSINOPHILS # (AUTO) 0.24 x10^3/uL (0-0.4); EOSINOPHILS % (AUTO) 1 % (1-7); LYMPHOCYTES # (AUTO) 1.62 x10^3/uL (1-3.4); LYMPHOCYTES % (AUTO) 9 % (22-44); MD SCAN; MONOCYTES # (AUTO) 0.61 x10^3/uL (0.2-0.8); MONOCYTES % (AUTO) 4 % (2-9); NEUTROPHILS # (AUTO) 15.15 x10^3/uL (1.8-6.8); NEUTROPHILS % (AUTO) 86 % (42-75)
--- NOTE | 2019-06-20 13:06 | NUR ---
Patient/Caregiver given discharge instructions and they have confirmed that they understand the instructions. Patient ambulatory with steady gait. EXPLAINED WOUND CARE, AND TO FOLLOW UP WITH OUT PT, ORDER FAXED
== END 2019-06-20 13:09 | disposition home or self-care (01) ==
LOC: ED 13:03
DX: L03.116 Cellulitis of left lower limb (principal); J44.9 Chronic obstructive pulmonary disease, unspecified; I10 Essential (primary) hypertension; I25.10 Atherosclerotic heart disease of native coronary artery without angina pectoris; F17.200 Nicotine dependence, unspecified, uncomplicated
CPT/HCPCS: 36415; 80048; 82040; 85025; 99284

== ENCOUNTER 2019-07-04 08:32 | Emergency (ER) | payer MEDICAID ==
[~2019-07-04] VITALS: Ht 177.8 cm; Wt 68.2 kg
[2019-07-04 08:35] VITALS: BP 147/86
--- NOTE | 2019-07-04 09:10 | NUR ---
PT TO ROOM FROM SHOWER & TRIAGE, UPRIGHT ON GURNEY AWAKE & COMFORTABLE, RESPONDS APPROP TO STAFF, COMFORT MEASURES PROVIDED, CALL LIGHT WITHIN REACH.
--- NOTE | 2019-07-04 09:39 | NUR ---
RICHARD (ZAPATA) TO SEE PT JOE FOR PT WOUNDS TO MEDIAL LT KNEE, PENIS & BUTTOCKS- PER DR REECE REQUEST.
[2019-07-04] MEDS ORDERED: DIPHENHYDRAMINE 50 MG/ML, 1ML IVPush ONE (10:00)
[2019-07-04] MEDS ORDERED: KETOROLAC 30 MG/1 ML IVPush ONE (10:00)
[2019-07-04] MEDS ORDERED: SODIUM CHLORIDE FLUSH 10ML SYR IVF ONE (10:00)
[2019-07-04] MEDS ORDERED: METOCLOPRAMIDE 5 MG/ML, 2ML IVPush ONE (10:00)
--- NOTE | 2019-07-04 10:02 | NUR ---
PT UPRIGHT ON GURNEY AWAKE & COMFORTABLE, RESPONDS APPROP TO STAFF, NAD, COMFORT MEASURES PROVIDED, CALL LIGHT WITHIN REACH.
[2019-07-04] MEDS ORDERED: METOCLOPRAMIDE 5 MG/ML, 2ML ONE (10:21)
[2019-07-04] MEDS ORDERED: DIPHENHYDRAMINE 50 MG/ML, 1ML ONE (10:21)
[2019-07-04] MEDS ORDERED: KETOROLAC 30 MG/1 ML ONE (10:21)
--- NOTE | 2019-07-04 10:38 | NUR ---
PASTE UP WORKER WILL TRY TO SEE PT IN ~30MINS, PER RICHARD (PETE)- DR REECE AWARE.
--- NOTE | 2019-07-04 10:59 | NUR ---
WCON AT BS. PT REMAINS UPRIGHT ON GURNEY AWAKE & COMFORTABLE, RESPONDS APPROP TO STAFF, NAD, COMFORT MEASURES PROVIDED, CALL LIGHT WITHIN REACH.
--- NOTE | 2019-07-04 11:59 | NUR ---
SEEN BY RICHARD, MEAL TRAY GIVEN. PT UPRIGHT ON GURNEY AWAKE & COMFORTABLE, RESPONDS APPROP TO STAFF, NAD, COMFORT MEASURES PROVIDED, CALL LIGHT WITHIN REACH.
--- NOTE | 2019-07-04 12:54 | NUR ---
Patient given discharge instructions and Rx, they have confirmed that they understand the instructions. Patient to DC desk via personal WC.
== END 2019-07-04 12:53 | disposition home or self-care (01) ==
LOC: ED 10:13
DX: G43.909 Migraine, unspecified, not intractable, without status migrainosus (principal); L89.899 Pressure ulcer of other site, unspecified stage; G82.20 Paraplegia, unspecified; I10 Essential (primary) hypertension; J44.9 Chronic obstructive pulmonary disease, unspecified; I25.10 Atherosclerotic heart disease of native coronary artery without angina pectoris; Z59.0 Homelessness
CPT/HCPCS: 96374; 96375; 99283; J1200; J1885; J2765

== ENCOUNTER 2019-08-05 23:54 | Emergency (ER) | payer MEDICAID ==
[~2019-08-05] VITALS: Ht 177.8 cm; Wt 80.0 kg
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
--- NOTE | 2019-08-06 00:23 | NUR ---
MD AT BEDSIDE TO ASSESS PT AND DISCUSS POC
--- NOTE | 2019-08-06 01:33 | NUR ---
VARGAS INSERTED PER PROTOCOL, URINE WALKED TO LAB. AWAITING URINE RESULTS FOR DISPO
[2019-08-06 01:54] LABS: CULTURE INDICATED? YES; MICROSCOPIC INDICATED
[2019-08-06] MEDS ORDERED: CIPROFLOXACIN 500 MG TABLET ONE (02:20)
[2019-08-06] MEDS ORDERED: SULFAMETH./TRIMETHOPRIM DS 800MG/160MG TABLET PO ONE (02:30)
[2019-08-06] MEDS ORDERED: CIPROFLOXACIN 500 MG TABLET PO ONE (02:30)
[2019-08-06] MEDS ORDERED: SULFAMETH./TRIMETHOPRIM DS 800MG/160MG TABLET ONE (02:37)
[2019-08-06 02:39] VITALS: BP 119/76
--- NOTE | 2019-08-06 02:39 | NUR ---
PT MEDICATED PER MAR
== END 2019-08-06 03:50 | disposition home or self-care (01) ==
LOC: ED 08-06 01:15
DX: N30.00 Acute cystitis without hematuria (principal); Z72.9 Problem related to lifestyle, unspecified; F17.210 Nicotine dependence, cigarettes, uncomplicated; I10 Essential (primary) hypertension; I25.10 Atherosclerotic heart disease of native coronary artery without angina pectoris
CPT/HCPCS: 51702; 81001; 87077; 87086; 87186; 99283; 99284

== ENCOUNTER 2019-08-14 15:50 | Emergency (ER) | payer MEDICAID ==
[~2019-08-14] VITALS: Ht 177.8 cm; Wt 70.5 kg
--- NOTE | 2019-08-14 16:25 | NUR ---
NA X 1
[2019-08-14 17:35] LABS: BASOPHILS # (AUTO) 0.03 x10^3/uL (0-0.1); BASOPHILS % (AUTO) 0 % (0-1); EOSINOPHILS # (AUTO) 0.09 x10^3/uL (0-0.4); EOSINOPHILS % (AUTO) 1 % (1-7); LYMPHOCYTES # (AUTO) 1.45 x10^3/uL (1-3.4); LYMPHOCYTES % (AUTO) 12 % (22-44); MD NO; MEAN CORPUSCULAR HEMOGLOBIN 28.8 pg (27.5-34.5); MEAN CORPUSCULAR HGB CONC 33.1 g/dL (33.2-36.2); MEAN PLATELET VOLUME 6.6 fL (7.4-10.4); MONOCYTES # (AUTO) 1.05 x10^3/uL (0.2-0.8); MONOCYTES % (AUTO) 9 % (2-9); NEUTROPHILS % (AUTO) 79 % (42-75); PLATELET COUNT 710 x10^3/uL (130-400); RED BLOOD COUNT 4.92 x10^6/uL (4.38-5.82); RED CELL DISTRIBUTION WIDTH 15.1 % (9.4-14.8)
[2019-08-14 17:41] LABS: ALBUMIN 2.7 g/dL (3.4-5.0); ANION GAP 6 mmol/L (5-15); CALCIUM 8.9 mg/dL (8.5-10.1); CHLORIDE 100 mmol/L (98-107); CREATININE 1.05 mg/dL (0.7-1.3)
--- NOTE | 2019-08-14 18:50 | NUR ---
PT TO ROOM FROM LOBBY
--- NOTE | 2019-08-14 18:57 | NUR ---
Assisted pt to venkatesh and nita, pt here for open sores on buttocks area.
[2019-08-14 19:11] VITALS: BP 145/79
--- NOTE | 2019-08-14 20:43 | NUR ---
Wounds cleansed with wound cleanser, placed optifoam on right and left pressure ulcer.
--- NOTE | 2019-08-14 21:21 | NUR ---
Reviewed discharge instructions with pt, pt became aggressive by threatening staff. Security called for assistance.
--- NOTE | 2019-08-14 21:47 | NUR ---
Micah FATIMA escorting pt.
== END 2019-08-14 21:52 | disposition home or self-care (01) ==
LOC: ED 21:45
DX: N30.00 Acute cystitis without hematuria (principal); L89.222 Pressure ulcer of left hip, stage 2; L89.212 Pressure ulcer of right hip, stage 2; I11.0 Hypertensive heart disease with heart failure; I50.9 Heart failure, unspecified; J43.9 Emphysema, unspecified
CPT/HCPCS: 36415; 71045; 80048; 82040; 85025; 99284

== ENCOUNTER 2019-08-15 15:41 | Emergency (ER) | payer MEDICAID ==
[2019-08-15 16:45] VITALS: BP 154/81
--- NOTE | 2019-08-15 17:51 | NUR ---
BUFFING WHEEL RAKER: PT TO ROOM FROM LOBBY VIA
[2019-08-15] MEDS ORDERED: CEFTRIAXONE 1,000 MG IM ONE (18:30)
[2019-08-15 18:55] LABS: BASOPHILS # (AUTO) 0.03 x10^3/uL (0-0.1); BASOPHILS % (AUTO) 0 % (0-1); EOSINOPHILS # (AUTO) 0.15 x10^3/uL (0-0.4); EOSINOPHILS % (AUTO) 1 % (1-7); LYMPHOCYTES % (AUTO) 13 % (22-44); MD NO; MEAN CORPUSCULAR HEMOGLOBIN 28.5 pg (27.5-34.5); MEAN CORPUSCULAR HGB CONC 33.3 g/dL (33.2-36.2); MEAN CORPUSCULAR VOLUME 85.6 fL (81-97); MEAN PLATELET VOLUME 6.7 fL (7.4-10.4); MONOCYTES # (AUTO) 1.23 x10^3/uL (0.2-0.8); MONOCYTES % (AUTO) 10 % (2-9); NEUTROPHILS % (AUTO) 75 % (42-75); PLATELET COUNT 642 x10^3/uL (130-400); RED BLOOD COUNT 4.72 x10^6/uL (4.38-5.82); RED CELL DISTRIBUTION WIDTH 14.9 % (9.4-14.8)
[2019-08-15 19:05] LABS: ALBUMIN 2.5 g/dL (3.4-5.0); ANION GAP 7 mmol/L (5-15); CALCIUM 8.3 mg/dL (8.5-10.1); CHLORIDE 102 mmol/L (98-107); CREATININE 0.93 mg/dL (0.7-1.3)
[2019-08-15] MEDS ORDERED: NEOSPORIN OINT. PKT 1 PACKET ONE (19:13)
[2019-08-15] MEDS ORDERED: LIDOCAINE-MPF 1%, 2ML ONE (20:04)
[2019-08-15] MEDS ORDERED: CEFTRIAXONE 1,000 MG ONE (20:04)
[2019-08-15 20:55] LABS: CULTURE INDICATED? YES; MICROSCOPIC INDICATED
== END 2019-08-15 22:23 | disposition home or self-care (01) ==
LOC: ED 20:34
DX: L89.153 Pressure ulcer of sacral region, stage 3 (principal); N30.00 Acute cystitis without hematuria; J43.9 Emphysema, unspecified; I11.0 Hypertensive heart disease with heart failure; I50.9 Heart failure, unspecified; F17.200 Nicotine dependence, unspecified, uncomplicated
CPT/HCPCS: 36415; 80048; 81001; 82040; 85025; 87086; 87147; 96372; 99283; J0696

== ENCOUNTER 2019-09-03 08:56 | Inpatient (IN) | payer MEDICAID ==
[~2019-09-03] VITALS: Ht 177.8 cm; Wt 61.9 kg
--- NOTE | 2019-09-03 09:02 | NUR ---
TASK RN NOTE: PT BIBA FOR C/O COLD EXPOSURE, WAS KICKED OUT OF [facility] AND SPENT ALL LAST NIGHT OUTSIDE. PT IS PARAPLEGIC AT BASELINE, WHEELCHAIRBOUND. PT C/O REDUCED MOBILITY AND SENSATION TO BILATERAL LE, BILATERAL LEG PAIN, SEEKING EVAL OF WOUNDS TO FEET AND BUTTOCKS. PT IN WARMER AND BLANKET PROVIDED BY REM. BP AND SPO2 MONITORS IN PLACE. REPORT GIVEN TO PRIMARY RN ANTOINE.
--- NOTE | 2019-09-03 09:38 | NUR ---
PT CLOTHES REMOVED. PT WAS INCONTINENT OF FECES AND URINE, MULTIPLE LAYERS OF FECES DRIED ON COCCYX/SACRAL AREA, TESTICLES, AND DOWN LEGS. OPEN WOUNDS NOTED TO BILATERAL GLUTEUS/SACRAL AREA. LINENS CHANGED, PT ATTACHED TO MONITORS AND COVERED IN BEAR HUGGER FOR SLOW REWARMING. PT CALM, COOPERATIVE, AND GRATEFUL FOR CARE. CALL LIGHT IN REACH.
[2019-09-03 09:57] LABS: BASOPHILS % (AUTO) 0 % (0-1); EOSINOPHILS # (AUTO) 0.26 x10^3/uL (0-0.4); EOSINOPHILS % (AUTO) 2 % (1-7); LYMPHOCYTES % (AUTO) 9 % (22-44); MD NO; MEAN CORPUSCULAR HEMOGLOBIN 28.1 pg (27.5-34.5); MEAN CORPUSCULAR HGB CONC 32.9 g/dL (33.2-36.2); MEAN CORPUSCULAR VOLUME 85.4 fL (81-97); MEAN PLATELET VOLUME 6.9 fL (7.4-10.4); MONOCYTES # (AUTO) 0.29 x10^3/uL (0.2-0.8); MONOCYTES % (AUTO) 2 % (2-9); NEUTROPHILS # (AUTO) 11.03 x10^3/uL (1.8-6.8); NEUTROPHILS % (AUTO) 87 % (42-75); PLATELET COUNT 821 x10^3/uL (130-400); RED BLOOD COUNT 5.11 x10^6/uL (4.38-5.82)
[2019-09-03 10:04] LABS: INTERNATIONAL NORMALIZED RATIO 0.94 (0.93-1.1)
[2019-09-03 10:07] LABS: ALBUMIN 2.6 g/dL (3.4-5.0); ANION GAP 6 mmol/L (5-15); CALCIUM 8.8 mg/dL (8.5-10.1); CHLORIDE 108 mmol/L (98-107)
[2019-09-03 10:13] LABS: ALANINE AMINOTRANSFERASE 28 U/L (12-78); ALKALINE PHOSPHATASE 135 U/L (45-117); BILIRUBIN,TOTAL 0.2 mg/dL (0.2-1.0); CREATININE 0.87 mg/dL (0.7-1.3); TOTAL PROTEIN 8.1 g/dL (6.4-8.2); TROPONIN I < 0.015 ng/mL (0.000-0.045)
[2019-09-03] MEDS ORDERED: AMPICILLIN/SULBACTAM 3 GM in SODIUM CHLORIDE 0.9% 100 ML IV ONE (10:30)
[2019-09-03] MEDS ORDERED: VANCOMYCIN PER PHARMACY MC ONE (10:30)
[2019-09-03] MEDS ORDERED: VANCOMYCIN 1,400 MG in SODIUM CHLORIDE 0.9% 250 ML IV ONE (11:00)
--- NOTE | 2019-09-03 11:14 | NUR ---
PT REPOSITIONED, BEARHUGGER STILL IN PLACE, FEET STILL COLD TO THE TOUCH. PT PROVIDED WITH WATER PER REQUEST. IV STARTED, CULTURES DRAWN. CALL LIGHT IN REACH.
[2019-09-03] MEDS ORDERED: ONDANSETRON 2MG/ML, 2ML IVPush PRN (11:30)
[2019-09-03] MEDS ORDERED: DOCUSATE 100 MG CAPSULE PO PRN (11:30)
[2019-09-03] MEDS ORDERED: ONDANSETRON ODT 4 MG PO PRN (11:30)
[2019-09-03] MEDS ORDERED: POLYETHYLENE GLYCOL 17 GM PACKET PO PRN (11:30)
[2019-09-03] MEDS ORDERED: AMPICILLIN/SULBACTAM 3 GM in SODIUM CHLORIDE 0.9% 100 ML IV SCH (11:30)
[2019-09-03] MEDS ORDERED: VANCOMYCIN PER PHARMACY MC PRN ×2 (11:30→21:00)
[2019-09-03 11:58] LABS: HCT (SEDRATE) 43.7 % (39.2-51.8)
--- NOTE | 2019-09-03 12:33 | NUR ---
REPORT CALLED TO RECEIVING RN. PT AWARE OF IMPENDING TRANSFER. DENIES ANY NEEDS OR CONCERNS AT THIS TIME. CALL LIGHT IN REACH.
[2019-09-03] MEDS: LACTATED RINGERS 1,000 ML IV SCH (13:01)
[2019-09-03] MEDS ORDERED: PHARMACOKINETIC MONITORING MC PRN (16:00)
[2019-09-03] MEDS ORDERED: PHARMACOKINETIC CONSULTATION MC ONE (16:00)
[2019-09-03] MEDS: AMPICILLIN/SULBACTAM 3 GM in SODIUM CHLORIDE 0.9% 100 ML IV SCH ×2 (17:12→23:05)
[2019-09-03] MEDS: ENOXAPARIN 40 MG/0.4 ML SQ SCH (17:12)
[2019-09-03 17:44] VITALS: BP 129/63
[2019-09-03 20:20] LABS: CULTURE INDICATED? YES; MICROSCOPIC INDICATED
[2019-09-03] MEDS: ACETAMINOPHEN 325 MG TABLET PO PRN (21:27)
[2019-09-03] MEDS: ATORVASTATIN 40 MG TABLET PO SCH (21:27)
[2019-09-03 21:44] VITALS: BP 156/94
[2019-09-04] MEDS: VANCOMYCIN 1,200 MG in SODIUM CHLORIDE 0.9% 250 ML IV SCH ×2 (01:09→12:38)
[2019-09-04 02:58] VITALS: BP 147/77
[2019-09-04] MEDS: AMPICILLIN/SULBACTAM 3 GM in SODIUM CHLORIDE 0.9% 100 ML IV SCH ×4 (04:54→23:31)
[2019-09-04] MEDS: LACTATED RINGERS 1,000 ML IV SCH ×3 (04:54→22:00)
[2019-09-04 06:01] LABS: ANION GAP 7 mmol/L (5-15); CALCIUM 8.5 mg/dL (8.5-10.1); CHLORIDE 110 mmol/L (98-107); CREATININE 0.69 mg/dL (0.7-1.3)
[2019-09-04 06:09] LABS: BASOPHILS # (AUTO) 0.05 x10^3/uL (0-0.1); BASOPHILS % (AUTO) 1 % (0-1); EOSINOPHILS # (AUTO) 0.23 x10^3/uL (0-0.4); EOSINOPHILS % (AUTO) 2 % (1-7); LYMPHOCYTES # (AUTO) 1.41 x10^3/uL (1-3.4); LYMPHOCYTES % (AUTO) 12 % (22-44); MD NO; MEAN CORPUSCULAR HEMOGLOBIN 27.9 pg (27.5-34.5); MEAN CORPUSCULAR HGB CONC 32.9 g/dL (33.2-36.2); MEAN PLATELET VOLUME 7.4 fL (7.4-10.4); MONOCYTES # (AUTO) 0.73 x10^3/uL (0.2-0.8); MONOCYTES % (AUTO) 6 % (2-9); NEUTROPHILS # (AUTO) 9.18 x10^3/uL (1.8-6.8); NEUTROPHILS % (AUTO) 79 % (42-75); PLATELET COUNT 691 x10^3/uL (130-400); RED BLOOD COUNT 4.29 x10^6/uL (4.38-5.82); RED CELL DISTRIBUTION WIDTH 14.8 % (9.4-14.8)
[2019-09-04 07:52] VITALS: BP 113/75
[2019-09-04] MEDS: METOPROLOL SUCCINATE 25 MG TAB.ER.24H PO SCH (09:46)
[2019-09-04] MEDS: ASPIRIN 81 MG TABLET EC PO SCH (09:46)
[2019-09-04] MEDS: ACETAMINOPHEN 325 MG TABLET PO PRN ×2 (11:12→19:27)
[2019-09-04 13:57] VITALS: BP 126/71
[2019-09-04] MEDS: ENOXAPARIN 40 MG/0.4 ML SQ SCH (16:34)
[2019-09-04 18:42] VITALS: BP 130/81
[2019-09-04] MEDS: ATORVASTATIN 40 MG TABLET PO SCH (19:39)
[2019-09-05] MEDS: VANCOMYCIN 1,200 MG in SODIUM CHLORIDE 0.9% 250 ML IV SCH ×2 (01:08→14:09)
[2019-09-05 01:19] VITALS: BP 142/84
[2019-09-05] MEDS: AMPICILLIN/SULBACTAM 3 GM in SODIUM CHLORIDE 0.9% 100 ML IV SCH ×4 (04:43→23:18)
[2019-09-05 05:12] LABS: BASOPHILS # (AUTO) 0.06 x10^3/uL (0-0.1); BASOPHILS % (AUTO) 1 % (0-1); EOSINOPHILS # (AUTO) 0.18 x10^3/uL (0-0.4); EOSINOPHILS % (AUTO) 2 % (1-7); LYMPHOCYTES # (AUTO) 1.46 x10^3/uL (1-3.4); LYMPHOCYTES % (AUTO) 13 % (22-44); MD NO; MEAN CORPUSCULAR HGB CONC 32.8 g/dL (33.2-36.2); MEAN CORPUSCULAR VOLUME 85.2 fL (81-97); MEAN PLATELET VOLUME 7.3 fL (7.4-10.4); MONOCYTES # (AUTO) 0.62 x10^3/uL (0.2-0.8); MONOCYTES % (AUTO) 5 % (2-9); NEUTROPHILS # (AUTO) 9.15 x10^3/uL (1.8-6.8); NEUTROPHILS % (AUTO) 80 % (42-75); PLATELET COUNT 672 x10^3/uL (130-400); RED BLOOD COUNT 4.41 x10^6/uL (4.38-5.82); RED CELL DISTRIBUTION WIDTH 14.8 % (9.4-14.8)
[2019-09-05 05:21] LABS: CHLORIDE 110 mmol/L (98-107)
[2019-09-05 05:25] LABS: ANION GAP 6 mmol/L (5-15); CALCIUM 8.3 mg/dL (8.5-10.1); CREATININE 0.71 mg/dL (0.7-1.3)
[2019-09-05 07:33] VITALS: BP 127/81
[2019-09-05] MEDS: ASPIRIN 81 MG TABLET EC PO SCH (08:02)
[2019-09-05] MEDS: METOPROLOL SUCCINATE 25 MG TAB.ER.24H PO SCH (08:02)
[2019-09-05 13:34] VITALS: BP 125/65
[2019-09-05] MEDS: ENOXAPARIN 40 MG/0.4 ML SQ SCH (16:40)
[2019-09-05 18:26] VITALS: BP 135/78
[2019-09-05] MEDS: ATORVASTATIN 40 MG TABLET PO SCH (20:07)
[2019-09-06] MEDS: VANCOMYCIN 1,200 MG in SODIUM CHLORIDE 0.9% 250 ML IV SCH ×2 (01:33→20:24)
[2019-09-06 01:37] VITALS: BP 125/76
[2019-09-06] MEDS: AMPICILLIN/SULBACTAM 3 GM in SODIUM CHLORIDE 0.9% 100 ML IV SCH ×3 (04:47→17:28)
[2019-09-06] MEDS: ACETAMINOPHEN 325 MG TABLET PO PRN ×2 (04:47→21:28)
[2019-09-06 06:08] LABS: BASOPHILS # (AUTO) 0.04 x10^3/uL (0-0.1); BASOPHILS % (AUTO) 0 % (0-1); EOSINOPHILS # (AUTO) 0.26 x10^3/uL (0-0.4); EOSINOPHILS % (AUTO) 2 % (1-7); LYMPHOCYTES # (AUTO) 1.65 x10^3/uL (1-3.4); LYMPHOCYTES % (AUTO) 14 % (22-44); MD NO; MEAN CORPUSCULAR HEMOGLOBIN 28.1 pg (27.5-34.5); MEAN CORPUSCULAR HGB CONC 32.8 g/dL (33.2-36.2); MEAN CORPUSCULAR VOLUME 85.7 fL (81-97); MEAN PLATELET VOLUME 7.4 fL (7.4-10.4); MONOCYTES # (AUTO) 0.76 x10^3/uL (0.2-0.8); MONOCYTES % (AUTO) 7 % (2-9); NEUTROPHILS # (AUTO) 8.78 x10^3/uL (1.8-6.8); NEUTROPHILS % (AUTO) 76 % (42-75); PLATELET COUNT 718 x10^3/uL (130-400); RED BLOOD COUNT 4.37 x10^6/uL (4.38-5.82); RED CELL DISTRIBUTION WIDTH 14.7 % (9.4-14.8)
[2019-09-06 06:14] LABS: ANION GAP 4 mmol/L (5-15); CALCIUM 8.5 mg/dL (8.5-10.1); CHLORIDE 110 mmol/L (98-107); CREATININE 0.73 mg/dL (0.7-1.3)
[2019-09-06 07:54] VITALS: BP 136/83
[2019-09-06] MEDS: ASPIRIN 81 MG TABLET EC PO SCH (10:10)
[2019-09-06] MEDS: METOPROLOL SUCCINATE 25 MG TAB.ER.24H PO SCH (10:13)
[2019-09-06 13:42] VITALS: BP 115/70
[2019-09-06] MEDS: ENOXAPARIN 40 MG/0.4 ML SQ SCH (17:28)
[2019-09-06 18:48] VITALS: BP 135/76
[2019-09-06 18:53] VITALS: BP 144/71
[2019-09-06] MEDS: ATORVASTATIN 40 MG TABLET PO SCH (20:23)
[2019-09-07] MEDS: AMPICILLIN/SULBACTAM 3 GM in SODIUM CHLORIDE 0.9% 100 ML IV SCH ×5 (00:29→23:49)
[2019-09-07 02:25] VITALS: BP 114/72
[2019-09-07] MEDS: ACETAMINOPHEN 325 MG TABLET PO PRN ×2 (06:36→19:01)
[2019-09-07 07:35] VITALS: BP 119/76
[2019-09-07 08:15] LABS: BASOPHILS # (AUTO) 0.04 x10^3/uL (0-0.1); BASOPHILS % (AUTO) 0 % (0-1); EOSINOPHILS # (AUTO) 0.24 x10^3/uL (0-0.4); EOSINOPHILS % (AUTO) 3 % (1-7); LYMPHOCYTES # (AUTO) 1.17 x10^3/uL (1-3.4); LYMPHOCYTES % (AUTO) 12 % (22-44); MD NO; MEAN CORPUSCULAR HEMOGLOBIN 28.1 pg (27.5-34.5); MEAN CORPUSCULAR HGB CONC 32.9 g/dL (33.2-36.2); MEAN CORPUSCULAR VOLUME 85.6 fL (81-97); MEAN PLATELET VOLUME 6.8 fL (7.4-10.4); MONOCYTES # (AUTO) 0.53 x10^3/uL (0.2-0.8); MONOCYTES % (AUTO) 6 % (2-9); NEUTROPHILS # (AUTO) 7.61 x10^3/uL (1.8-6.8); NEUTROPHILS % (AUTO) 79 % (42-75); PLATELET COUNT 770 x10^3/uL (130-400); RED CELL DISTRIBUTION WIDTH 15.5 % (9.4-14.8)
[2019-09-07] MEDS: ASPIRIN 81 MG TABLET EC PO SCH (08:23)
[2019-09-07] MEDS: METOPROLOL SUCCINATE 25 MG TAB.ER.24H PO SCH (08:23)
[2019-09-07 08:24] LABS: ANION GAP 5 mmol/L (5-15); CALCIUM 8.6 mg/dL (8.5-10.1); CHLORIDE 110 mmol/L (98-107); CREATININE 0.68 mg/dL (0.7-1.3)
[2019-09-07] MEDS: VANCOMYCIN 1,200 MG in SODIUM CHLORIDE 0.9% 250 ML IV SCH (13:30)
[2019-09-07 14:45] VITALS: BP 120/75
[2019-09-07] MEDS: ENOXAPARIN 40 MG/0.4 ML SQ SCH (17:50)
[2019-09-07 18:56] VITALS: BP 162/91
[2019-09-07] MEDS: ATORVASTATIN 40 MG TABLET PO SCH (20:50)
[2019-09-08 00:49] VITALS: BP 123/76
[2019-09-08] MEDS: AMPICILLIN/SULBACTAM 3 GM in SODIUM CHLORIDE 0.9% 100 ML IV SCH ×4 (05:42→23:30)
[2019-09-08 06:54] VITALS: BP 117/77
[2019-09-08] MEDS: VANCOMYCIN 1,200 MG in SODIUM CHLORIDE 0.9% 250 ML IV SCH (07:52)
[2019-09-08] MEDS: ASPIRIN 81 MG TABLET EC PO SCH (07:53)
[2019-09-08] MEDS: METOPROLOL SUCCINATE 25 MG TAB.ER.24H PO SCH (07:55)
[2019-09-08 12:53] VITALS: BP 120/78
[2019-09-08] MEDS: ENOXAPARIN 40 MG/0.4 ML SQ SCH (17:00)
[2019-09-08] MEDS: ATORVASTATIN 40 MG TABLET PO SCH (19:55)
[2019-09-08] MEDS: ACETAMINOPHEN 325 MG TABLET PO PRN (20:12)
[2019-09-08 21:17] VITALS: BP 129/73
[2019-09-09] MEDS: VANCOMYCIN 1,200 MG in SODIUM CHLORIDE 0.9% 250 ML IV SCH ×2 (01:33→19:43)
[2019-09-09 02:26] VITALS: BP 123/77
[2019-09-09] MEDS: AMPICILLIN/SULBACTAM 3 GM in SODIUM CHLORIDE 0.9% 100 ML IV SCH ×3 (05:37→18:20)
[2019-09-09 07:10] VITALS: BP 109/76
[2019-09-09] MEDS: ASPIRIN 81 MG TABLET EC PO SCH (09:43)
[2019-09-09] MEDS: METOPROLOL SUCCINATE 25 MG TAB.ER.24H PO SCH (11:51)
[2019-09-09 14:00] VITALS: BP 130/78
[2019-09-09] MEDS: ACETAMINOPHEN 325 MG TABLET PO PRN (17:13)
[2019-09-09] MEDS: ENOXAPARIN 40 MG/0.4 ML SQ SCH (17:45)
[2019-09-09 18:57] VITALS: BP 136/74
[2019-09-09] MEDS: ATORVASTATIN 40 MG TABLET PO SCH (20:38)
[2019-09-10] MEDS: AMPICILLIN/SULBACTAM 3 GM in SODIUM CHLORIDE 0.9% 100 ML IV SCH ×2 (00:33→06:15)
[2019-09-10 00:39] VITALS: BP 132/81
[2019-09-10 07:21] VITALS: BP 130/84
[2019-09-10] MEDS: METOPROLOL SUCCINATE 25 MG TAB.ER.24H PO SCH (07:30)
[2019-09-10] MEDS: ASPIRIN 81 MG TABLET EC PO SCH (07:30)
[2019-09-10] MEDS ORDERED: ASPI81TA45 PO (09:58)
[2019-09-10] MEDS ORDERED: METO25TA91 PO (09:58)
[2019-09-10] MEDS ORDERED: ATOR40TA78 PO (09:58)
== END 2019-09-10 12:56 | disposition home or self-care (01) | DRG 720 ==
LOC: ED 10:47 → EDIP 11:10 → 4NE 12:50 → 3N 09-09 05:57
PROVIDERS: ADMIT Family Medicine; ATTEND Family Medicine
DX: A41.9 Sepsis, unspecified organism (principal); G82.20 Paraplegia, unspecified; T33.839A Superficial frostbite of unspecified toe(s), initial encounter; E78.5 Hyperlipidemia, unspecified; B95.62 Methicillin resistant Staphylococcus aureus infection as the cause of diseases classified elsewhere; I10 Essential (primary) hypertension; I25.10 Atherosclerotic heart disease of native coronary artery without angina pectoris; J43.9 Emphysema, unspecified; N31.9 Neuromuscular dysfunction of bladder, unspecified; Z59.0 Homelessness; Z72.0 Tobacco use; Z87.440 Personal history of urinary (tract) infections; Z91.19 Patient's noncompliance with other medical treatment and regimen; Z95.5 Presence of coronary angioplasty implant and graft; Z99.3 Dependence on wheelchair; L03.119 Cellulitis of unspecified part of limb
CPT/HCPCS: 36415; 71045; 80048; 80053; 80202; 81001; 83605; 83880; 84484; 85025; 85610; 85651; 86140; 87040; 87077; 87086; 87147; 87186; 93005; 96374; 99285; G0378; J0295; J1650; J3370; J7050; J7120

== ENCOUNTER 2019-09-14 08:16 | Emergency (ER) | payer MEDICAID ==
[~2019-09-14] VITALS: Ht 180.3 cm; Wt 70.0 kg
[~2019-09-14 08:16] MED LIST changes: +ASPI81TA45 PO; +ATOR40TA78 PO; +METO25TA91 PO
[2019-09-14 08:28] VITALS: BP 143/98
[2019-09-14] MEDS ORDERED: NEOSPORIN OINT. PKT 1 PACKET ONE ×2 (08:59→10:04)
--- NOTE | 2019-09-14 09:03 | NUR ---
pt states that he came to hospital to have his wounds changed. pt verbalized that he attempted to go to the wound clinic first but was unable to get his wound changed.pt in bed in a hospital gown. Greyson at bedside completing wound care.
== END 2019-09-14 10:31 | disposition home or self-care (01) ==
LOC: ED 08:38
DX: L03.317 Cellulitis of buttock (principal); L03.116 Cellulitis of left lower limb
CPT/HCPCS: 99281

== ENCOUNTER 2019-09-15 12:58 | Inpatient (IN) | payer MEDICAID ==
[~2019-09-15] VITALS: Ht 180.3 cm; Wt 61.8 kg
--- NOTE | 2019-09-15 13:20 | NUR ---
"WAS HERE YESTERDAY BUT THEY ONLY CHANGED THE DRESSING. I HAVE BRAGG BITE ON BOTH FEET. ""I feel like they are getting infected & I'm not on abx anymore. Plus I'm weak." afebrile, however hr 115
[2019-09-15] MEDS ORDERED: MORPHINE SULFATE 4 MG/ML, 1ML IVPush PRN (14:00)
[2019-09-15] MEDS ORDERED: MORPHINE SULFATE 4 MG/ML, 1ML ONE (14:31)
[2019-09-15 14:34] LABS: MEAN CORPUSCULAR HEMOGLOBIN 28.2 pg (27.5-34.5); MEAN CORPUSCULAR HGB CONC 32.6 g/dL (33.2-36.2); MEAN CORPUSCULAR VOLUME 86.6 fL (81-97); MEAN PLATELET VOLUME 7.9 fL (7.4-10.4); PLATELET COUNT 655 x10^3/uL (130-400); RED BLOOD COUNT 4.53 x10^6/uL (4.38-5.82); RED CELL DISTRIBUTION WIDTH 15.4 % (9.4-14.8)
[2019-09-15 14:39] LABS: INTERNATIONAL NORMALIZED RATIO 0.98 (0.93-1.1); PROTHROMBIN TIME 10.4 Seconds (9.6-11.5)
[2019-09-15 14:44] LABS: ALANINE AMINOTRANSFERASE 33 U/L (12-78); ALBUMIN 2.8 g/dL (3.4-5.0); ANION GAP 6 mmol/L (5-15); CHLORIDE 106 mmol/L (98-107); CREATININE 0.73 mg/dL (0.7-1.3)
[2019-09-15 14:47] LABS: ALKALINE PHOSPHATASE 125 U/L (45-117); BILIRUBIN,TOTAL 0.2 mg/dL (0.2-1.0)
[2019-09-15] MEDS ORDERED: CEFTRIAXONE PMX 1GM/50ML 50 ML IV ONE (15:15)
[2019-09-15] MEDS ORDERED: VANCOMYCIN PER PHARMACY MC PRN ×2 (15:30→16:00)
[2019-09-15] MEDS ORDERED: SODIUM CHLORIDE 0.9% 1,000ML IVBOLUS ONE (15:30)
[2019-09-15 15:55] LABS: MD YES
[2019-09-15] MEDS ORDERED: ONDANSETRON 2MG/ML, 2ML IVPush PRN (16:00)
[2019-09-15] MEDS ORDERED: IBUPROFEN 600 MG TABLET PO PRN (16:00)
[2019-09-15] MEDS ORDERED: KETOROLAC 30 MG/1 ML IV PRN (16:00)
[2019-09-15] MEDS ORDERED: hydrALAzine 20 MG/ML, 1ML IVPush PRN (16:00)
[2019-09-15] MEDS ORDERED: GABAPENTIN 300 MG CAPSULE PO PRN (16:00)
[2019-09-15] MEDS ORDERED: ONDANSETRON ODT 4 MG PO PRN (16:00)
[2019-09-15] MEDS ORDERED: morphine SULFATE 10 MG/ML, 1ML IVPush PRN (16:00)
[2019-09-15] MEDS ORDERED: VANCOMYCIN 1,400 MG in SODIUM CHLORIDE 0.9% 250 ML IV ONE (16:00)
[2019-09-15] MEDS ORDERED: BACLOFEN 10 MG TABLET PO PRN (16:00)
--- NOTE | 2019-09-15 16:05 | NUR ---
PT TO MRI AT THIS TIME.
[2019-09-15 16:22] LABS: BASOS#(MANUAL) 0.14 x10^3/uL (0-0.1); BASOS% (MANUAL) 1 % (0-1); EOS#(MANUAL) 0.57 x10^3/uL (0.0-0.4); EOS% (MANUAL) 4 % (1-7); LYMPH#(MANUAL) 1.42 x10^3/uL (1-3.4); LYMPHS% (MANUAL) 10 % (22-44); MONOS#(MANUAL) 0.99 x10^3/uL (0.3-2.7); MONOS% (MANUAL) 7 % (2-9); SEG#(MANUAL) 11.08 x10^3/uL (1.8-6.8); SEGS% (MANUAL) 78 % (42-75)
[2019-09-15 16:24] LABS: <PLATELET ESTIMATE> INCREASED; <PLT MORPHOLOGY> NORMAL PLT MORPH; <RBC MORPHOLOGY> NORMAL
[2019-09-15] MEDS ORDERED: GADOTERATE 7.5 MMOL/15 ML SYR ONE (16:32)
[2019-09-15] MEDS ORDERED: CEFTRIAXONE PMX 1GM/50ML 50 ML ONE (17:49)
--- NOTE | 2019-09-15 18:37 | NUR ---
SBAR TELEPHONE HAND-OFF REPORT GIVEN TO STANISLAW MOLINA.
[2019-09-15 19:20] VITALS: BP 150/71
[2019-09-15] MEDS ORDERED: PHARMACOKINETIC MONITORING MC PRN (20:00)
[2019-09-15] MEDS ORDERED: PHARMACOKINETIC CONSULTATION MC ONE (20:00)
[2019-09-15] MEDS: ATORVASTATIN 40 MG TABLET PO SCH (20:46)
[2019-09-15] MEDS: NS + 20MEQ KCL 1,000 ML IV SCH (20:47)
[2019-09-16 00:21] VITALS: BP 149/72
[2019-09-16 05:26] LABS: BASOPHILS # (AUTO) 0.03 x10^3/uL (0-0.1); BASOPHILS % (AUTO) 0 % (0-1); EOSINOPHILS # (AUTO) 0.36 x10^3/uL (0-0.4); EOSINOPHILS % (AUTO) 3 % (1-7); LYMPHOCYTES # (AUTO) 0.99 x10^3/uL (1-3.4); LYMPHOCYTES % (AUTO) 9 % (22-44); MD NO; MEAN CORPUSCULAR HEMOGLOBIN 27.8 pg (27.5-34.5); MEAN CORPUSCULAR HGB CONC 32.6 g/dL (33.2-36.2); MEAN CORPUSCULAR VOLUME 85.3 fL (81-97); MONOCYTES # (AUTO) 0.64 x10^3/uL (0.2-0.8); MONOCYTES % (AUTO) 6 % (2-9); NEUTROPHILS # (AUTO) 8.84 x10^3/uL (1.8-6.8); NEUTROPHILS % (AUTO) 81 % (42-75); PLATELET COUNT 622 x10^3/uL (130-400); RED BLOOD COUNT 4.25 x10^6/uL (4.38-5.82); RED CELL DISTRIBUTION WIDTH 15.6 % (9.4-14.8)
[2019-09-16 05:36] LABS: ANION GAP 8 mmol/L (5-15); CALCIUM 8.4 mg/dL (8.5-10.1); CHLORIDE 109 mmol/L (98-107)
[2019-09-16 05:37] LABS: CREATININE 0.71 mg/dL (0.7-1.3)
[2019-09-16] MEDS: NS + 20MEQ KCL 1,000 ML IV SCH ×2 (06:36→16:54)
[2019-09-16 08:40] VITALS: BP 127/73
[2019-09-16] MEDS: ASPIRIN 81 MG TABLET EC PO SCH (09:06)
[2019-09-16] MEDS ORDERED: CEFTRIAXONE PMX 1GM/50ML 50 ML IV SCH (10:00)
[2019-09-16 12:18] VITALS: BP 132/78
[2019-09-16] MEDS: VANCOMYCIN 1,200 MG in SODIUM CHLORIDE 0.9% 250 ML IV SCH (13:13)
[2019-09-16] MEDS: PIPERACILLIN/TAZO/PMX 3.375GM 50 ML IV SCH ×2 (16:54→22:36)
[2019-09-16 17:01] LABS: MICROSCOPIC AUTO
[2019-09-16 17:05] LABS: CULTURE INDICATED? YES
[2019-09-16 18:31] VITALS: BP 139/76
[2019-09-16] MEDS: ATORVASTATIN 40 MG TABLET PO SCH (20:22)
[2019-09-17 00:49] VITALS: BP 131/80
[2019-09-17] MEDS: NS + 20MEQ KCL 1,000 ML IV SCH ×3 (03:12→23:00)
[2019-09-17] MEDS: PIPERACILLIN/TAZO/PMX 3.375GM 50 ML IV SCH ×4 (04:07→22:26)
[2019-09-17 05:18] LABS: BASOPHILS # (AUTO) 0.02 x10^3/uL (0-0.1); BASOPHILS % (AUTO) 0 % (0-1); EOSINOPHILS % (AUTO) 4 % (1-7); LYMPHOCYTES % (AUTO) 10 % (22-44); MD NO; MEAN CORPUSCULAR HEMOGLOBIN 28.1 pg (27.5-34.5); MEAN CORPUSCULAR HGB CONC 32.7 g/dL (33.2-36.2); MEAN CORPUSCULAR VOLUME 85.9 fL (81-97); MONOCYTES # (AUTO) 0.96 x10^3/uL (0.2-0.8); MONOCYTES % (AUTO) 8 % (2-9); NEUTROPHILS # (AUTO) 9.03 x10^3/uL (1.8-6.8); NEUTROPHILS % (AUTO) 78 % (42-75); PLATELET COUNT 632 x10^3/uL (130-400); RED BLOOD COUNT 4.31 x10^6/uL (4.38-5.82); RED CELL DISTRIBUTION WIDTH 15.6 % (9.4-14.8)
[2019-09-17 05:19] LABS: ALBUMIN 2.4 g/dL (3.4-5.0); ANION GAP 9 mmol/L (5-15); CALCIUM 8.6 mg/dL (8.5-10.1); CHLORIDE 107 mmol/L (98-107)
[2019-09-17 05:22] LABS: ALANINE AMINOTRANSFERASE 30 U/L (12-78); ALKALINE PHOSPHATASE 87 U/L (45-117); BILIRUBIN,TOTAL 0.6 mg/dL (0.2-1.0); CREATINE KINASE, TOTAL 901 U/L (39-308); CREATININE 0.75 mg/dL (0.7-1.3)
[2019-09-17] MEDS: VANCOMYCIN 1,200 MG in SODIUM CHLORIDE 0.9% 250 ML IV SCH (06:31)
[2019-09-17 08:00] VITALS: BP 145/76
[2019-09-17] MEDS: ASPIRIN 81 MG TABLET EC PO SCH (09:28)
[2019-09-17 12:05] VITALS: BP 138/84
[2019-09-17 18:33] VITALS: BP 102/61
[2019-09-17] MEDS: ATORVASTATIN 40 MG TABLET PO SCH (20:20)
[2019-09-18 00:08] VITALS: BP 129/84
[2019-09-18] MEDS: VANCOMYCIN 1,200 MG in SODIUM CHLORIDE 0.9% 250 ML IV SCH ×2 (00:59→13:43)
[2019-09-18] MEDS: PIPERACILLIN/TAZO/PMX 3.375GM 50 ML IV SCH ×4 (04:09→23:17)
[2019-09-18 05:12] LABS: BASOPHILS # (AUTO) 0.12 x10^3/uL (0-0.1); BASOPHILS % (AUTO) 1 % (0-1); EOSINOPHILS # (AUTO) 0.59 x10^3/uL (0-0.4); EOSINOPHILS % (AUTO) 5 % (1-7); LYMPHOCYTES # (AUTO) 1.37 x10^3/uL (1-3.4); LYMPHOCYTES % (AUTO) 11 % (22-44); MD NO; MEAN CORPUSCULAR HEMOGLOBIN 28.2 pg (27.5-34.5); MEAN CORPUSCULAR HGB CONC 32.7 g/dL (33.2-36.2); MEAN CORPUSCULAR VOLUME 86.1 fL (81-97); MEAN PLATELET VOLUME 7.9 fL (7.4-10.4); MONOCYTES # (AUTO) 1.04 x10^3/uL (0.2-0.8); MONOCYTES % (AUTO) 8 % (2-9); NEUTROPHILS # (AUTO) 9.35 x10^3/uL (1.8-6.8); NEUTROPHILS % (AUTO) 75 % (42-75); PLATELET COUNT 671 x10^3/uL (130-400); RED BLOOD COUNT 4.31 x10^6/uL (4.38-5.82); RED CELL DISTRIBUTION WIDTH 15.5 % (9.4-14.8)
[2019-09-18 05:20] LABS: ALBUMIN 2.4 g/dL (3.4-5.0); ANION GAP 6 mmol/L (5-15); CALCIUM 8.9 mg/dL (8.5-10.1); CHLORIDE 107 mmol/L (98-107)
[2019-09-18 05:25] LABS: ALANINE AMINOTRANSFERASE 31 U/L (12-78); ALKALINE PHOSPHATASE 84 U/L (45-117); BILIRUBIN,TOTAL 0.3 mg/dL (0.2-1.0); CREATINE KINASE, TOTAL 527 U/L (39-308); CREATININE 0.83 mg/dL (0.7-1.3); TOTAL PROTEIN 7.5 g/dL (6.4-8.2)
[2019-09-18 07:41] VITALS: BP 127/81
[2019-09-18] MEDS: ASPIRIN 81 MG TABLET EC PO SCH (10:15)
[2019-09-18 14:23] VITALS: BP 147/77
[2019-09-18] MEDS: LACTOBACILLUS CHEW TABLET PO SCH ×2 (17:33→20:31)
[2019-09-18 18:31] VITALS: BP 155/90
[2019-09-18] MEDS: ATORVASTATIN 40 MG TABLET PO SCH (20:31)
[2019-09-19] MEDS: VANCOMYCIN 1,200 MG in SODIUM CHLORIDE 0.9% 250 ML IV SCH ×2 (01:09→14:08)
[2019-09-19 01:13] VITALS: BP 122/79
[2019-09-19] MEDS: ACETAMINOPHEN 325 MG TABLET PO PRN ×2 (01:24→21:12)
[2019-09-19] MEDS: PIPERACILLIN/TAZO/PMX 3.375GM 50 ML IV SCH ×4 (05:27→22:58)
[2019-09-19 05:44] LABS: BASOPHILS # (AUTO) 0.05 x10^3/uL (0-0.1); BASOPHILS % (AUTO) 0 % (0-1); EOSINOPHILS # (AUTO) 0.56 x10^3/uL (0-0.4); EOSINOPHILS % (AUTO) 5 % (1-7); LYMPHOCYTES # (AUTO) 1.44 x10^3/uL (1-3.4); LYMPHOCYTES % (AUTO) 13 % (22-44); MD NO; MEAN CORPUSCULAR HEMOGLOBIN 28.1 pg (27.5-34.5); MEAN CORPUSCULAR VOLUME 85.2 fL (81-97); MEAN PLATELET VOLUME 7.8 fL (7.4-10.4); MONOCYTES # (AUTO) 0.79 x10^3/uL (0.2-0.8); MONOCYTES % (AUTO) 7 % (2-9); NEUTROPHILS # (AUTO) 8.57 x10^3/uL (1.8-6.8); NEUTROPHILS % (AUTO) 75 % (42-75); PLATELET COUNT 661 x10^3/uL (130-400); RED BLOOD COUNT 4.37 x10^6/uL (4.38-5.82); RED CELL DISTRIBUTION WIDTH 15.2 % (9.4-14.8)
[2019-09-19 05:54] LABS: ANION GAP 7 mmol/L (5-15); CALCIUM 8.5 mg/dL (8.5-10.1); CHLORIDE 110 mmol/L (98-107)
[2019-09-19 09:31] VITALS: BP 119/73
[2019-09-19] MEDS: LACTOBACILLUS CHEW TABLET PO SCH ×3 (10:12→20:22)
[2019-09-19] MEDS: ASPIRIN 81 MG TABLET EC PO SCH (10:12)
[2019-09-19 15:34] VITALS: BP 157/89
[2019-09-19 19:17] VITALS: BP 135/82
[2019-09-19] MEDS: ATORVASTATIN 40 MG TABLET PO SCH (20:22)
[2019-09-20 00:50] VITALS: BP 143/94
[2019-09-20] MEDS: VANCOMYCIN 1,200 MG in SODIUM CHLORIDE 0.9% 250 ML IV SCH ×2 (00:57→13:39)
[2019-09-20] MEDS: PIPERACILLIN/TAZO/PMX 3.375GM 50 ML IV SCH ×4 (04:59→23:01)
[2019-09-20 07:23] VITALS: BP 122/76
[2019-09-20] MEDS: LACTOBACILLUS CHEW TABLET PO SCH ×3 (09:02→21:21)
[2019-09-20] MEDS: ASPIRIN 81 MG TABLET EC PO SCH (09:02)
[2019-09-20 13:07] VITALS: BP 104/71
[2019-09-20 18:25] VITALS: BP 135/77
[2019-09-20] MEDS: ACETAMINOPHEN 325 MG TABLET PO PRN (19:29)
[2019-09-20] MEDS: ATORVASTATIN 40 MG TABLET PO SCH (21:21)
[2019-09-21] MEDS: VANCOMYCIN 1,200 MG in SODIUM CHLORIDE 0.9% 250 ML IV SCH ×2 (00:48→12:58)
[2019-09-21 01:08] VITALS: BP 128/82
[2019-09-21] MEDS: PIPERACILLIN/TAZO/PMX 3.375GM 50 ML IV SCH ×4 (05:08→22:58)
[2019-09-21 07:37] VITALS: BP 122/79
[2019-09-21] MEDS: ASPIRIN 81 MG TABLET EC PO SCH (09:03)
[2019-09-21] MEDS: LACTOBACILLUS CHEW TABLET PO SCH ×3 (09:03→20:08)
[2019-09-21 13:17] VITALS: BP 132/85
[2019-09-21 18:29] VITALS: BP 133/72
[2019-09-21] MEDS: ATORVASTATIN 40 MG TABLET PO SCH (20:08)
[2019-09-22 00:39] VITALS: BP 130/67
[2019-09-22] MEDS: VANCOMYCIN 1,200 MG in SODIUM CHLORIDE 0.9% 250 ML IV SCH ×2 (01:11→22:46)
[2019-09-22] MEDS: PIPERACILLIN/TAZO/PMX 3.375GM 50 ML IV SCH ×3 (05:12→19:27)
[2019-09-22 06:37] VITALS: BP 128/72
[2019-09-22] MEDS: ASPIRIN 81 MG TABLET EC PO SCH (07:56)
[2019-09-22] MEDS: LACTOBACILLUS CHEW TABLET PO SCH ×3 (07:56→22:46)
[2019-09-22] MEDS ORDERED: FENTANYL PF 250 MCG/5ML ONE (11:52)
[2019-09-22] MEDS ORDERED: MIDAZOLAM 1 MG/ML, 2ML ONE (11:52)
[2019-09-22] MEDS ORDERED: PROPOFOL 10 MG/ML, 20ML ONE ×2 (11:53→12:59)
[2019-09-22] MEDS ORDERED: SUCCINYLCHOLINE 20 MG/ML, 10ML ONE ×2 (11:53→12:59)
[2019-09-22] MEDS ORDERED: LIDOCAINE-MPF 2% ,5ML ONE (11:56)
[2019-09-22] MEDS ORDERED: FENTANYL PF 100 MCG/2ML ONE ×2 (11:57→13:06)
[2019-09-22] MEDS ORDERED: GLYCOPYRROLATE 0.2MG/1ML, 5ML ONE (12:59)
[2019-09-22] MEDS ORDERED: NEOSTIGMINE 1 MG/ML, 10ML ONE (12:59)
[2019-09-22] MEDS ORDERED: DEXAMETHASONE 4 MG/ML, 1ML ONE (12:59)
[2019-09-22] MEDS ORDERED: ROCURONIUM 10MG/ML,5ML ONE (12:59)
[2019-09-22] MEDS ORDERED: CEFAZOLIN 1,000 MG ONE (12:59)
[2019-09-22] MEDS ORDERED: ONDANSETRON 2MG/ML, 2ML ONE (12:59)
[2019-09-22] MEDS ORDERED: BUPIVACAINE/PF 0.5% ONE (13:28)
[2019-09-22] MEDS ORDERED: OXYcodone 5 MG/5 ML ORAL.SOL UDC PO PRN (14:30)
[2019-09-22] MEDS ORDERED: MEPERIDINE/PF 25MG/ML,1ML IVPush PRN (14:30)
[2019-09-22] MEDS ORDERED: PROMETHAZINE 25 MG/ML, 1ML IV PRN (14:30)
[2019-09-22] MEDS ORDERED: ACETAMINOPHEN 325 MG TABLET PO PRN (14:30)
[2019-09-22] MEDS ORDERED: EPHEDRINE 50 MG/ML, 1ML IVPush PRN (14:30)
[2019-09-22] MEDS ORDERED: hydrALAzine 20 MG/ML, 1ML IV PRN (14:30)
[2019-09-22] MEDS ORDERED: ONDANSETRON 2MG/ML, 2ML IV PRN (14:30)
[2019-09-22] MEDS ORDERED: FENTANYL PF 100 MCG/2ML IV PRN (14:30)
[2019-09-22] MEDS ORDERED: HYDROmorphone 2 MG/ML, 1ML IVPush PRN (14:30)
[2019-09-22] MEDS ORDERED: LABETALOL 5MG/ML, 20ML IV PRN (14:30)
[2019-09-22 18:44] VITALS: BP 133/78
[2019-09-22] MEDS: ATORVASTATIN 40 MG TABLET PO SCH (22:46)
[2019-09-23 01:25] VITALS: BP 138/72
[2019-09-23] MEDS: PIPERACILLIN/TAZO/PMX 3.375GM 50 ML IV SCH ×2 (01:55→08:29)
[2019-09-23 04:57] VITALS: BP 140/85
[2019-09-23 07:11] VITALS: BP 120/72
[2019-09-23] MEDS: LACTOBACILLUS CHEW TABLET PO SCH ×3 (08:29→20:13)
[2019-09-23] MEDS: ASPIRIN 81 MG TABLET EC PO SCH (08:29)
[2019-09-23] MEDS ORDERED: VANCOMYCIN 1,200 MG in SODIUM CHLORIDE 0.9% 250 ML IV SCH (11:00)
[2019-09-23 13:08] VITALS: BP 114/69
[2019-09-23] MEDS: ATORVASTATIN 40 MG TABLET PO SCH (20:12)
[2019-09-23] MEDS: HYDROcodone/APAP 5/325 TABLET PO PRN (20:13)
[2019-09-23 22:36] VITALS: BP 112/68
[2019-09-24 02:39] VITALS: BP 121/78
[2019-09-24] MEDS: HYDROcodone/APAP 5/325 TABLET PO PRN ×3 (02:39→20:10)
[2019-09-24 07:58] VITALS: BP 120/78
[2019-09-24] MEDS: LACTOBACILLUS CHEW TABLET PO SCH (08:31)
[2019-09-24] MEDS: ASPIRIN 81 MG TABLET EC PO SCH (08:31)
[2019-09-24] MEDS ORDERED: ACET325T26 PO (11:30)
[2019-09-24] MEDS: ENOXAPARIN 40 MG/0.4 ML SQ SCH (11:56)
[2019-09-24 12:23] VITALS: BP 123/74
[2019-09-24 19:56] VITALS: BP 143/84
[2019-09-24] MEDS: ATORVASTATIN 40 MG TABLET PO SCH (20:10)
[2019-09-25 01:05] VITALS: BP 133/86
[2019-09-25] MEDS: METOPROLOL SUCCINATE 25 MG TAB.ER.24H PO SCH (05:51)
[2019-09-25 07:25] VITALS: BP 136/80
[2019-09-25] MEDS: ASPIRIN 81 MG TABLET EC PO SCH (09:33)
[2019-09-25] MEDS: HYDROcodone/APAP 5/325 TABLET PO PRN (12:11)
[2019-09-25] MEDS: ENOXAPARIN 40 MG/0.4 ML SQ SCH (12:11)
[2019-09-25 15:56] VITALS: BP 118/73
[2019-09-25 20:08] VITALS: BP 119/74
[2019-09-25] MEDS: ATORVASTATIN 40 MG TABLET PO SCH (21:27)
[2019-09-26] MEDS: HYDROcodone/APAP 5/325 TABLET PO PRN ×2 (00:04→21:03)
[2019-09-26 02:17] VITALS: BP 122/78
[2019-09-26] MEDS: METOPROLOL SUCCINATE 25 MG TAB.ER.24H PO SCH (06:24)
[2019-09-26 08:12] VITALS: BP 122/81
[2019-09-26] MEDS: ASPIRIN 81 MG TABLET EC PO SCH (09:32)
[2019-09-26] MEDS: ENOXAPARIN 40 MG/0.4 ML SQ SCH (09:32)
[2019-09-26 11:35] LABS: BASOPHILS # (AUTO) 0.02 x10^3/uL (0-0.1); BASOPHILS % (AUTO) 0 % (0-1); EOSINOPHILS # (AUTO) 0.52 x10^3/uL (0-0.4); EOSINOPHILS % (AUTO) 4 % (1-7); LYMPHOCYTES # (AUTO) 1.63 x10^3/uL (1-3.4); LYMPHOCYTES % (AUTO) 12 % (22-44); MD NO; MEAN CORPUSCULAR HEMOGLOBIN 27.9 pg (27.5-34.5); MEAN CORPUSCULAR HGB CONC 32.6 g/dL (33.2-36.2); MEAN CORPUSCULAR VOLUME 85.6 fL (81-97); MEAN PLATELET VOLUME 7.4 fL (7.4-10.4); MONOCYTES # (AUTO) 0.34 x10^3/uL (0.2-0.8); MONOCYTES % (AUTO) 3 % (2-9); NEUTROPHILS # (AUTO) 10.75 x10^3/uL (1.8-6.8); NEUTROPHILS % (AUTO) 81 % (42-75); PLATELET COUNT 779 x10^3/uL (130-400); RED BLOOD COUNT 3.89 x10^6/uL (4.38-5.82); RED CELL DISTRIBUTION WIDTH 15.5 % (9.4-14.8)
[2019-09-26 11:43] LABS: ANION GAP 4 mmol/L (5-15); CALCIUM 8.9 mg/dL (8.5-10.1); CHLORIDE 105 mmol/L (98-107); CREATININE 0.67 mg/dL (0.7-1.3)
[2019-09-26 11:45] LABS: CREATINE KINASE, TOTAL 841 U/L (39-308)
[2019-09-26 12:16] VITALS: BP 135/81
[2019-09-26 20:10] VITALS: BP 124/75
[2019-09-26] MEDS: ATORVASTATIN 40 MG TABLET PO SCH (21:03)
[2019-09-27 02:46] VITALS: BP 118/79
[2019-09-27] MEDS: METOPROLOL SUCCINATE 25 MG TAB.ER.24H PO SCH (06:19)
[2019-09-27 08:00] VITALS: BP 127/85
[2019-09-27] MEDS: ASPIRIN 81 MG TABLET EC PO SCH (08:26)
[2019-09-27] MEDS: ENOXAPARIN 40 MG/0.4 ML SQ SCH (08:26)
[2019-09-27 14:00] VITALS: BP 132/87
[2019-09-27 21:00] VITALS: BP 136/83
[2019-09-27] MEDS: ATORVASTATIN 40 MG TABLET PO SCH ×2 (21:48→22:04)
[2019-09-27] MEDS: HYDROcodone/APAP 5/325 TABLET PO PRN (22:04)
[2019-09-28 02:26] VITALS: BP 121/79
[2019-09-28] MEDS: METOPROLOL SUCCINATE 25 MG TAB.ER.24H PO SCH (05:37)
[2019-09-28 06:40] VITALS: BP 121/78
[2019-09-28] MEDS: ENOXAPARIN 40 MG/0.4 ML SQ SCH (09:21)
[2019-09-28] MEDS: ASPIRIN 81 MG TABLET EC PO SCH (09:21)
[2019-09-28 13:33] VITALS: BP 125/76
[2019-09-28 18:24] VITALS: BP 124/78
[2019-09-28] MEDS: HYDROcodone/APAP 5/325 TABLET PO PRN (19:31)
[2019-09-28] MEDS: ATORVASTATIN 40 MG TABLET PO SCH (20:20)
[2019-09-29 02:22] VITALS: BP 104/63
[2019-09-29] MEDS: METOPROLOL SUCCINATE 25 MG TAB.ER.24H PO SCH (06:34)
[2019-09-29 08:00] VITALS: BP 135/82
[2019-09-29 08:46] LABS: ANION GAP 6 mmol/L (5-15); CALCIUM 9.4 mg/dL (8.5-10.1); CHLORIDE 105 mmol/L (98-107); CREATININE 0.76 mg/dL (0.7-1.3)
[2019-09-29 08:49] LABS: CREATINE KINASE, TOTAL 331 U/L (39-308)
[2019-09-29 09:03] LABS: MEAN CORPUSCULAR HEMOGLOBIN 27.5 pg (27.5-34.5); MEAN CORPUSCULAR HGB CONC 32.4 g/dL (33.2-36.2); MEAN CORPUSCULAR VOLUME 84.9 fL (81-97); MEAN PLATELET VOLUME 7.1 fL (7.4-10.4); RED BLOOD COUNT 4.43 x10^6/uL (4.38-5.82); RED CELL DISTRIBUTION WIDTH 15.7 % (9.4-14.8)
[2019-09-29 09:05] LABS: BASOPHILS # (AUTO) 0.04 x10^3/uL (0-0.1); BASOPHILS % (AUTO) 0 % (0-1); EOSINOPHILS # (AUTO) 0.58 x10^3/uL (0-0.4); EOSINOPHILS % (AUTO) 4 % (1-7); LYMPHOCYTES # (AUTO) 1.64 x10^3/uL (1-3.4); LYMPHOCYTES % (AUTO) 11 % (22-44); MD SCAN; MONOCYTES # (AUTO) 0.55 x10^3/uL (0.2-0.8); MONOCYTES % (AUTO) 4 % (2-9); NEUTROPHILS # (AUTO) 11.74 x10^3/uL (1.8-6.8); NEUTROPHILS % (AUTO) 81 % (42-75)
[2019-09-29 09:09] LABS: PLATELET COUNT 1070 x10^3/uL (130-400)
[2019-09-29] MEDS: ASPIRIN 81 MG TABLET EC PO SCH (09:37)
[2019-09-29] MEDS: ENOXAPARIN 40 MG/0.4 ML SQ SCH (09:37)
[2019-09-29 12:45] VITALS: BP 124/72
[2019-09-29] MEDS ORDERED: LIDOCAINE 1%, 10ML ONE (17:36)
[2019-09-29 18:58] VITALS: BP 126/82
[2019-09-29] MEDS: ATORVASTATIN 40 MG TABLET PO SCH (19:43)
[2019-09-29] MEDS: HYDROcodone/APAP 5/325 TABLET PO PRN (19:46)
[2019-09-30 00:38] VITALS: BP 123/82
[2019-09-30 05:12] LABS: CHLORIDE 107 mmol/L (98-107)
[2019-09-30 05:18] LABS: ANION GAP 6 mmol/L (5-15); CALCIUM 9.4 mg/dL (8.5-10.1)
[2019-09-30 05:21] VITALS: BP 113/73
[2019-09-30] MEDS: METOPROLOL SUCCINATE 25 MG TAB.ER.24H PO SCH (05:22)
[2019-09-30 05:29] LABS: MEAN CORPUSCULAR HEMOGLOBIN 27.7 pg (27.5-34.5); MEAN CORPUSCULAR HGB CONC 32.8 g/dL (33.2-36.2); MEAN CORPUSCULAR VOLUME 84.6 fL (81-97); MEAN PLATELET VOLUME 7.2 fL (7.4-10.4); RED CELL DISTRIBUTION WIDTH 15.9 % (9.4-14.8)
[2019-09-30 05:31] LABS: PLATELET COUNT 1032 x10^3/uL (130-400)
[2019-09-30 05:58] LABS: BASOPHILS # (AUTO) 0.11 x10^3/uL (0-0.1); BASOPHILS % (AUTO) 1 % (0-1); EOSINOPHILS # (AUTO) 0.65 x10^3/uL (0-0.4); EOSINOPHILS % (AUTO) 6 % (1-7); LYMPHOCYTES # (AUTO) 1.83 x10^3/uL (1-3.4); LYMPHOCYTES % (AUTO) 17 % (22-44); MD SCAN; MONOCYTES # (AUTO) 0.87 x10^3/uL (0.2-0.8); MONOCYTES % (AUTO) 8 % (2-9); NEUTROPHILS # (AUTO) 7.46 x10^3/uL (1.8-6.8); NEUTROPHILS % (AUTO) 68 % (42-75)
[2019-09-30 06:40] VITALS: BP 119/75
[2019-09-30] MEDS ORDERED: VANCOMYCIN PER PHARMACY MC PRN (08:30)
[2019-09-30] MEDS: ASPIRIN 81 MG TABLET EC PO SCH (08:49)
[2019-09-30] MEDS: ENOXAPARIN 40 MG/0.4 ML SQ SCH (08:49)
[2019-09-30] MEDS ORDERED: PHARMACOKINETIC MONITORING MC PRN (09:00)
[2019-09-30] MEDS ORDERED: PHARMACOKINETIC CONSULTATION MC ONE (09:00)
[2019-09-30] MEDS ORDERED: VANCOMYCIN 1,500 MG in SODIUM CHLORIDE 0.9% 250 ML IV ONE (09:00)
[2019-09-30] MEDS: AMPICILLIN/SULBACTAM 3 GM in SODIUM CHLORIDE 0.9% 100 ML IV SCH ×3 (09:30→20:46)
[2019-09-30 13:20] VITALS: BP 126/75
[2019-09-30 20:23] VITALS: BP 146/96
[2019-09-30] MEDS: ATORVASTATIN 40 MG TABLET PO SCH (20:46)
[2019-09-30] MEDS: HYDROcodone/APAP 5/325 TABLET PO PRN (20:49)
[2019-09-30] MEDS: VANCOMYCIN 1,200 MG in SODIUM CHLORIDE 0.9% 250 ML IV SCH (21:35)
[2019-10-01 02:25] VITALS: BP 116/72
[2019-10-01] MEDS: AMPICILLIN/SULBACTAM 3 GM in SODIUM CHLORIDE 0.9% 100 ML IV SCH ×2 (03:06→08:49)
[2019-10-01 04:53] LABS: ANION GAP 5 mmol/L (5-15); BASOPHILS # (AUTO) 0.02 x10^3/uL (0-0.1); BASOPHILS % (AUTO) 0 % (0-1); CALCIUM 8.9 mg/dL (8.5-10.1); CHLORIDE 109 mmol/L (98-107); CREATININE 0.74 mg/dL (0.7-1.3); EOSINOPHILS # (AUTO) 0.65 x10^3/uL (0-0.4); EOSINOPHILS % (AUTO) 6 % (1-7); LYMPHOCYTES # (AUTO) 1.56 x10^3/uL (1-3.4); LYMPHOCYTES % (AUTO) 14 % (22-44); MD NO; MEAN CORPUSCULAR HEMOGLOBIN 27.4 pg (27.5-34.5); MEAN CORPUSCULAR HGB CONC 32.2 g/dL (33.2-36.2); MEAN CORPUSCULAR VOLUME 85.2 fL (81-97); MEAN PLATELET VOLUME 7.1 fL (7.4-10.4); MONOCYTES # (AUTO) 0.88 x10^3/uL (0.2-0.8); MONOCYTES % (AUTO) 8 % (2-9); NEUTROPHILS # (AUTO) 7.76 x10^3/uL (1.8-6.8); NEUTROPHILS % (AUTO) 71 % (42-75); PLATELET COUNT 982 x10^3/uL (130-400); RED BLOOD COUNT 4.03 x10^6/uL (4.38-5.82); RED CELL DISTRIBUTION WIDTH 15.5 % (9.4-14.8)
[2019-10-01] MEDS: METOPROLOL SUCCINATE 25 MG TAB.ER.24H PO SCH (06:13)
[2019-10-01 07:57] VITALS: BP 116/78
[2019-10-01] MEDS: ENOXAPARIN 40 MG/0.4 ML SQ SCH (08:48)
[2019-10-01] MEDS: ASPIRIN 81 MG TABLET EC PO SCH (08:48)
[2019-10-01] MEDS: VANCOMYCIN 1,200 MG in SODIUM CHLORIDE 0.9% 250 ML IV SCH (09:36)
[2019-10-01 13:29] VITALS: BP 131/77
[2019-10-01 19:26] VITALS: BP 131/78
[2019-10-01] MEDS: ATORVASTATIN 40 MG TABLET PO SCH (20:39)
[2019-10-02] MEDS: HYDROcodone/APAP 5/325 TABLET PO PRN ×2 (01:04→21:40)
[2019-10-02 01:34] VITALS: BP 112/70
[2019-10-02 04:52] LABS: HCT (SEDRATE) 34.8 % (39.2-51.8)
[2019-10-02 05:01] LABS: BASOPHILS # (AUTO) 0.06 x10^3/uL (0-0.1); BASOPHILS % (AUTO) 1 % (0-1); EOSINOPHILS % (AUTO) 7 % (1-7); LYMPHOCYTES # (AUTO) 1.14 x10^3/uL (1-3.4); LYMPHOCYTES % (AUTO) 11 % (22-44); MD NO; MEAN CORPUSCULAR HEMOGLOBIN 27.9 pg (27.5-34.5); MEAN CORPUSCULAR HGB CONC 32.9 g/dL (33.2-36.2); MEAN CORPUSCULAR VOLUME 84.8 fL (81-97); MEAN PLATELET VOLUME 7.3 fL (7.4-10.4); MONOCYTES % (AUTO) 6 % (2-9); NEUTROPHILS # (AUTO) 7.99 x10^3/uL (1.8-6.8); NEUTROPHILS % (AUTO) 76 % (42-75); PLATELET COUNT 994 x10^3/uL (130-400); RED BLOOD COUNT 4.03 x10^6/uL (4.38-5.82); RED CELL DISTRIBUTION WIDTH 15.9 % (9.4-14.8)
[2019-10-02 05:05] LABS: ALBUMIN 2.5 g/dL (3.4-5.0); ANION GAP 4 mmol/L (5-15); CALCIUM 8.8 mg/dL (8.5-10.1); CHLORIDE 109 mmol/L (98-107)
[2019-10-02] MEDS: METOPROLOL SUCCINATE 25 MG TAB.ER.24H PO SCH (05:12)
[2019-10-02 05:14] LABS: ALANINE AMINOTRANSFERASE 38 U/L (12-78); ALKALINE PHOSPHATASE 108 U/L (45-117); BILIRUBIN,TOTAL 0.4 mg/dL (0.2-1.0); C-REACTIVE PROTEIN, QUANT 0.97 mg/dL (0.02-0.49); CREATINE KINASE, TOTAL 163 U/L (39-308); CREATININE 0.71 mg/dL (0.7-1.3); TOTAL PROTEIN 7.2 g/dL (6.4-8.2)
[2019-10-02 07:25] VITALS: BP 110/76
[2019-10-02] MEDS: ASPIRIN 81 MG TABLET EC PO SCH (08:29)
[2019-10-02] MEDS: ENOXAPARIN 40 MG/0.4 ML SQ SCH (08:29)
[2019-10-02 13:43] VITALS: BP 130/71
[2019-10-02] MEDS: ATORVASTATIN 40 MG TABLET PO SCH (19:53)
[2019-10-02 20:10] VITALS: BP 117/80
[2019-10-03 03:16] VITALS: BP 100/54
[2019-10-03 06:26] VITALS: BP 129/78
[2019-10-03] MEDS: METOPROLOL SUCCINATE 25 MG TAB.ER.24H PO SCH (06:27)
[2019-10-03 07:19] VITALS: BP 119/76
[2019-10-03] MEDS: ASPIRIN 81 MG TABLET EC PO SCH (08:56)
[2019-10-03] MEDS: ENOXAPARIN 40 MG/0.4 ML SQ SCH (08:56)
[2019-10-03 13:42] VITALS: BP 134/84
[2019-10-03 18:59] VITALS: BP 128/74
[2019-10-03] MEDS: ATORVASTATIN 40 MG TABLET PO SCH (21:55)
[2019-10-03] MEDS: HYDROcodone/APAP 5/325 TABLET PO PRN (22:09)
[2019-10-04 01:50] VITALS: BP 97/61
[2019-10-04 05:47] VITALS: BP 115/74
[2019-10-04 05:56] LABS: MEAN CORPUSCULAR HEMOGLOBIN 27.6 pg (27.5-34.5); MEAN CORPUSCULAR HGB CONC 32.7 g/dL (33.2-36.2); MEAN CORPUSCULAR VOLUME 84.4 fL (81-97); MEAN PLATELET VOLUME 7.4 fL (7.4-10.4); RED BLOOD COUNT 4.22 x10^6/uL (4.38-5.82)
[2019-10-04] MEDS: METOPROLOL SUCCINATE 25 MG TAB.ER.24H PO SCH (05:56)
[2019-10-04 05:59] LABS: PLATELET COUNT 1053 x10^3/uL (130-400)
[2019-10-04 06:46] LABS: BASOPHILS # (AUTO) 0.16 x10^3/uL (0-0.1); BASOPHILS % (AUTO) 1 % (0-1); EOSINOPHILS # (AUTO) 0.56 x10^3/uL (0-0.4); EOSINOPHILS % (AUTO) 5 % (1-7); LYMPHOCYTES # (AUTO) 1.67 x10^3/uL (1-3.4); LYMPHOCYTES % (AUTO) 15 % (22-44); MD SCAN; MONOCYTES # (AUTO) 0.79 x10^3/uL (0.2-0.8); MONOCYTES % (AUTO) 7 % (2-9); NEUTROPHILS # (AUTO) 8.02 x10^3/uL (1.8-6.8); NEUTROPHILS % (AUTO) 72 % (42-75)
[2019-10-04 07:30] VITALS: BP 103/71
[2019-10-04] MEDS: ENOXAPARIN 40 MG/0.4 ML SQ SCH (08:06)
[2019-10-04] MEDS: ASPIRIN 81 MG TABLET EC PO SCH (08:06)
[2019-10-04 13:53] VITALS: BP 135/79
[2019-10-04 19:15] VITALS: BP 128/85
[2019-10-04] MEDS: ATORVASTATIN 40 MG TABLET PO SCH (20:35)
[2019-10-05 01:08] VITALS: BP 104/65
[2019-10-05] MEDS: METOPROLOL SUCCINATE 25 MG TAB.ER.24H PO SCH (05:41)
[2019-10-05 07:35] VITALS: BP 139/81
[2019-10-05] MEDS: ASPIRIN 81 MG TABLET EC PO SCH (09:17)
[2019-10-05] MEDS: ENOXAPARIN 40 MG/0.4 ML SQ SCH (09:17)
[2019-10-05 13:30] VITALS: BP 110/69
[2019-10-05 19:09] VITALS: BP 134/73
[2019-10-05] MEDS: ATORVASTATIN 40 MG TABLET PO SCH (21:51)
[2019-10-05] MEDS: HYDROcodone/APAP 5/325 TABLET PO PRN (21:52)
[2019-10-06 00:51] VITALS: BP 113/72
[2019-10-06 05:25] VITALS: BP 117/70
[2019-10-06] MEDS: METOPROLOL SUCCINATE 25 MG TAB.ER.24H PO SCH (05:28)
[2019-10-06 05:34] LABS: CREATININE 0.75 mg/dL (0.7-1.3)
[2019-10-06 07:21] VITALS: BP 111/70
[2019-10-06] MEDS: MULTIVITAMINS/MINERALS TABLET PO SCH (09:18)
[2019-10-06] MEDS: ASPIRIN 81 MG TABLET EC PO SCH (09:18)
[2019-10-06] MEDS: ENOXAPARIN 40 MG/0.4 ML SQ SCH (09:19)
[2019-10-06 12:52] VITALS: BP 126/78
[2019-10-06] MEDS: HYDROcodone/APAP 5/325 TABLET PO PRN ×2 (13:23→21:19)
[2019-10-06] MEDS: ZINC SULFATE 220 MG CAPSULE PO SCH (13:50)
[2019-10-06 19:32] VITALS: BP 123/82
[2019-10-06] MEDS: ATORVASTATIN 40 MG TABLET PO SCH (21:19)
[2019-10-07 00:20] VITALS: BP 114/73
[2019-10-07] MEDS: METOPROLOL SUCCINATE 25 MG TAB.ER.24H PO SCH (05:46)
[2019-10-07 07:33] VITALS: BP 108/75
[2019-10-07] MEDS: MULTIVITAMINS/MINERALS TABLET PO SCH (08:48)
[2019-10-07] MEDS: ASPIRIN 81 MG TABLET EC PO SCH (08:48)
[2019-10-07] MEDS: ENOXAPARIN 40 MG/0.4 ML SQ SCH (08:48)
[2019-10-07] MEDS: ZINC SULFATE 220 MG CAPSULE PO SCH (08:48)
[2019-10-07 13:01] VITALS: BP 135/85
[2019-10-07] MEDS: HYDROcodone/APAP 5/325 TABLET PO PRN (17:59)
[2019-10-07 21:20] VITALS: BP 114/66
[2019-10-07] MEDS: ATORVASTATIN 40 MG TABLET PO SCH (21:24)
[2019-10-08 03:45] VITALS: BP 116/72
[2019-10-08] MEDS: HYDROcodone/APAP 5/325 TABLET PO PRN ×2 (03:59→20:15)
[2019-10-08 05:24] LABS: BASOPHILS # (AUTO) 0.12 x10^3/uL (0-0.1); BASOPHILS % (AUTO) 1 % (0-1); EOSINOPHILS # (AUTO) 0.61 x10^3/uL (0-0.4); EOSINOPHILS % (AUTO) 6 % (1-7); LYMPHOCYTES # (AUTO) 1.63 x10^3/uL (1-3.4); LYMPHOCYTES % (AUTO) 17 % (22-44); MD NO; MEAN CORPUSCULAR HEMOGLOBIN 27.5 pg (27.5-34.5); MEAN CORPUSCULAR HGB CONC 32.5 g/dL (33.2-36.2); MEAN CORPUSCULAR VOLUME 84.6 fL (81-97); MEAN PLATELET VOLUME 6.9 fL (7.4-10.4); MONOCYTES # (AUTO) 0.77 x10^3/uL (0.2-0.8); MONOCYTES % (AUTO) 8 % (2-9); NEUTROPHILS # (AUTO) 6.41 x10^3/uL (1.8-6.8); NEUTROPHILS % (AUTO) 67 % (42-75); PLATELET COUNT 844 x10^3/uL (130-400); RED BLOOD COUNT 4.42 x10^6/uL (4.38-5.82); RED CELL DISTRIBUTION WIDTH 15.5 % (9.4-14.8)
[2019-10-08 05:43] LABS: HCT (SEDRATE) 37.3 % (39.2-51.8)
[2019-10-08] MEDS: METOPROLOL SUCCINATE 25 MG TAB.ER.24H PO SCH (06:14)
[2019-10-08 07:03] VITALS: BP 120/76
[2019-10-08] MEDS: MULTIVITAMINS/MINERALS TABLET PO SCH (09:54)
[2019-10-08] MEDS: ENOXAPARIN 40 MG/0.4 ML SQ SCH (09:54)
[2019-10-08] MEDS: ASPIRIN 81 MG TABLET EC PO SCH (09:54)
[2019-10-08] MEDS: ZINC SULFATE 220 MG CAPSULE PO SCH (09:54)
[2019-10-08 13:19] VITALS: BP 121/80
[2019-10-08 19:25] VITALS: BP 122/71
[2019-10-08] MEDS: ATORVASTATIN 40 MG TABLET PO SCH (20:15)
[2019-10-09 01:22] VITALS: BP 111/70
[2019-10-09] MEDS: METOPROLOL SUCCINATE 25 MG TAB.ER.24H PO SCH (06:04)
[2019-10-09 06:50] VITALS: BP 133/84
[2019-10-09] MEDS: ENOXAPARIN 40 MG/0.4 ML SQ SCH (09:04)
[2019-10-09] MEDS: ZINC SULFATE 220 MG CAPSULE PO SCH (09:04)
[2019-10-09] MEDS: ASPIRIN 81 MG TABLET EC PO SCH (09:04)
[2019-10-09] MEDS: MULTIVITAMINS/MINERALS TABLET PO SCH (09:04)
[2019-10-09 13:16] VITALS: BP 120/74
[2019-10-09 20:06] VITALS: BP 129/79
[2019-10-09] MEDS: ATORVASTATIN 40 MG TABLET PO SCH (21:18)
[2019-10-09] MEDS: HYDROcodone/APAP 5/325 TABLET PO PRN (21:18)
[2019-10-10 01:48] VITALS: BP 106/68
[2019-10-10] MEDS: METOPROLOL SUCCINATE 25 MG TAB.ER.24H PO SCH (05:46)
[2019-10-10 07:20] VITALS: BP 135/80
[2019-10-10] MEDS: ENOXAPARIN 40 MG/0.4 ML SQ SCH (08:16)
[2019-10-10] MEDS: MULTIVITAMINS/MINERALS TABLET PO SCH (08:17)
[2019-10-10] MEDS: ZINC SULFATE 220 MG CAPSULE PO SCH (08:17)
[2019-10-10] MEDS: ASPIRIN 81 MG TABLET EC PO SCH (08:17)
[2019-10-10 14:10] VITALS: BP 119/75
[2019-10-10] MEDS: HYDROcodone/APAP 5/325 TABLET PO PRN (20:33)
[2019-10-10 20:34] VITALS: BP_SYST 128; BP_DIAS 128; BP_DIAS 82
[2019-10-10] MEDS: ATORVASTATIN 40 MG TABLET PO SCH (21:00)
[2019-10-11 03:14] VITALS: BP 110/74
[2019-10-11] MEDS: METOPROLOL SUCCINATE 25 MG TAB.ER.24H PO SCH (05:31)
[2019-10-11 07:20] VITALS: BP 137/80
[2019-10-11] MEDS: ZINC SULFATE 220 MG CAPSULE PO SCH (09:08)
[2019-10-11] MEDS: ENOXAPARIN 40 MG/0.4 ML SQ SCH (09:08)
[2019-10-11] MEDS: MULTIVITAMINS/MINERALS TABLET PO SCH (09:08)
[2019-10-11] MEDS: ASPIRIN 81 MG TABLET EC PO SCH (09:08)
[2019-10-11 12:30] VITALS: BP 113/84
[2019-10-11] MEDS: ATORVASTATIN 40 MG TABLET PO SCH (19:50)
[2019-10-11] MEDS: HYDROcodone/APAP 5/325 TABLET PO PRN (19:51)
[2019-10-11 19:54] VITALS: BP 143/79
[2019-10-12 03:30] VITALS: BP 123/75
[2019-10-12 05:56] LABS: BASOPHILS # (AUTO) 0.09 x10^3/uL (0-0.1); BASOPHILS % (AUTO) 1 % (0-1); EOSINOPHILS # (AUTO) 0.58 x10^3/uL (0-0.4); EOSINOPHILS % (AUTO) 6 % (1-7); LYMPHOCYTES % (AUTO) 18 % (22-44); MD NO; MEAN CORPUSCULAR HEMOGLOBIN 27.1 pg (27.5-34.5); MEAN CORPUSCULAR VOLUME 84.5 fL (81-97); MEAN PLATELET VOLUME 8.1 fL (7.4-10.4); MONOCYTES # (AUTO) 0.66 x10^3/uL (0.2-0.8); MONOCYTES % (AUTO) 7 % (2-9); NEUTROPHILS # (AUTO) 6.21 x10^3/uL (1.8-6.8); NEUTROPHILS % (AUTO) 67 % (42-75); PLATELET COUNT 608 x10^3/uL (130-400); RED BLOOD COUNT 4.56 x10^6/uL (4.38-5.82); RED CELL DISTRIBUTION WIDTH 15.6 % (9.4-14.8)
[2019-10-12 06:12] VITALS: BP 134/85
[2019-10-12] MEDS: METOPROLOL SUCCINATE 25 MG TAB.ER.24H PO SCH (06:14)
[2019-10-12 08:02] VITALS: BP 147/86
[2019-10-12] MEDS ORDERED: METO25TA91 PO (08:16)
[2019-10-12] MEDS ORDERED: ATOR40TA78 PO (08:16)
[2019-10-12] MEDS ORDERED: ASPI81TA45 PO (08:16)
[2019-10-12] MEDS: ASPIRIN 81 MG TABLET EC PO SCH (09:09)
[2019-10-12] MEDS: ENOXAPARIN 40 MG/0.4 ML SQ SCH (09:09)
[2019-10-12] MEDS: MULTIVITAMINS/MINERALS TABLET PO SCH (09:09)
[2019-10-12] MEDS: ZINC SULFATE 220 MG CAPSULE PO SCH (09:09)
== END 2019-10-12 09:58 | disposition home or self-care (01) | DRG 710 ==
LOC: ED 13:09 → SUATTDRO 15:32 → EDIP 15:41 → 3N 19:09 → 4NE 09-22 15:16
PROVIDERS: ADMIT Hospitalist; ATTEND Hospitalist
PROC: 0Y6D0Z2 Detachment at Left Upper Leg, Mid, Open Approach (ICD-10-PCS; principal; 2019-09-22 11:45)
PROC: 0S9D3ZZ Drainage of Left Knee Joint, Percutaneous Approach (ICD-10-PCS; 2019-09-29)
DX: A41.9 Sepsis, unspecified organism (principal); L89.153 Pressure ulcer of sacral region, stage 3; J18.9 Pneumonia, unspecified organism; L89.323 Pressure ulcer of left buttock, stage 3; L89.313 Pressure ulcer of right buttock, stage 3; G82.20 Paraplegia, unspecified; J44.0 Chronic obstructive pulmonary disease with (acute) lower respiratory infection; M62.82 Rhabdomyolysis; E11.52 Type 2 diabetes mellitus with diabetic peripheral angiopathy with gangrene; L03.115 Cellulitis of right lower limb; N31.9 Neuromuscular dysfunction of bladder, unspecified; T33.99XA Superficial frostbite of other sites, initial encounter; D63.8 Anemia in other chronic diseases classified elsewhere; E78.5 Hyperlipidemia, unspecified; I25.10 Atherosclerotic heart disease of native coronary artery without angina pectoris; L03.116 Cellulitis of left lower limb; F17.200 Nicotine dependence, unspecified, uncomplicated; R65.20 Severe sepsis without septic shock; I10 Essential (primary) hypertension; F12.90 Cannabis use, unspecified, uncomplicated; L97.909 Non-pressure chronic ulcer of unspecified part of unspecified lower leg with unspecified severity; Z99.3 Dependence on wheelchair; Y93.89 Activity, other specified; Y92.89 Other specified places as the place of occurrence of the external cause; Y99.8 Other external cause status; Z95.5 Presence of coronary angioplasty implant and graft; Z59.0 Homelessness; Z79.82 Long term (current) use of aspirin
CPT/HCPCS: J3490; S0020; 10030; 36415; 71045; 75989; 80048; 80053; 80202; 81001; 82550; 82565; 83605; 83735; 84100; 84145; 85025; 85610; 85651; 86140; 87040; 87070; 87075; 87086; 87205; 93922; 93925; 96374; 96375; G0378; J0295; J0690; J0696; J1100; J1650; J2250; J2405; J2543; J2704; J2710; J3010; J3370; J3480; A9575; J0330; J2270; J7030; J7050

== ENCOUNTER → 2019-10-18 | Outpatient (CLI) | payer MEDICAID ==
[~2019-10-18] MED LIST changes: +ACET325T26 PO
== END | disposition home or self-care (01) ==
LOC: WOUND 07:54
PROVIDERS: ATTEND Internal Medicine
DX: L89.42 Pressure ulcer of contiguous site of back, buttock and hip, stage 2 (principal); G82.21 Paraplegia, complete; I73.9 Peripheral vascular disease, unspecified; J44.9 Chronic obstructive pulmonary disease, unspecified; F17.210 Nicotine dependence, cigarettes, uncomplicated; Z89.612 Acquired absence of left leg above knee
CPT/HCPCS: 97597; 97598; 99215

== ENCOUNTER 2019-10-26 09:10 | Inpatient (IN) | payer MEDICAID ==
[~2019-10-26] VITALS: Ht 177.8 cm; Wt 61.6 kg
[2019-10-26] MEDS ORDERED: AMPICILLIN/SULBACTAM 3 GM in SODIUM CHLORIDE 0.9% 100 ML IV ONE (09:30)
[2019-10-26] MEDS ORDERED: SODIUM CHLORIDE 0.9% 1,000ML IVBOLUS ONE (09:30)
[2019-10-26] MEDS ORDERED: SODIUM CHLORIDE FLUSH 10ML SYR IVF ONE (09:30)
--- NOTE | 2019-10-26 09:34 | NUR ---
Assumed care of patient. S/P left AKA 2 months ago. Wound well approximated with aviva and small aount of purulent drainage. NAD. Placed on NIBP and pulse ox. Will continue to monitor.
--- NOTE | 2019-10-26 10:35 | NUR ---
IV started and NS bolus hung. Blood cultures x 2 drawn.
[2019-10-26 11:14] LABS: BASOPHILS # (AUTO) 0.03 x10^3/uL (0-0.1); BASOPHILS % (AUTO) 0 % (0-1); EOSINOPHILS # (AUTO) 0.41 x10^3/uL (0-0.4); EOSINOPHILS % (AUTO) 3 % (1-7); LYMPHOCYTES # (AUTO) 1.37 x10^3/uL (1-3.4); LYMPHOCYTES % (AUTO) 11 % (22-44); MD NO; MEAN CORPUSCULAR HGB CONC 32.4 g/dL (33.2-36.2); MEAN CORPUSCULAR VOLUME 83.4 fL (81-97); MEAN PLATELET VOLUME 7.2 fL (7.4-10.4); MONOCYTES # (AUTO) 0.61 x10^3/uL (0.2-0.8); MONOCYTES % (AUTO) 5 % (2-9); NEUTROPHILS # (AUTO) 9.64 x10^3/uL (1.8-6.8); NEUTROPHILS % (AUTO) 80 % (42-75); PLATELET COUNT 538 x10^3/uL (130-400); RED BLOOD COUNT 4.83 x10^6/uL (4.38-5.82); RED CELL DISTRIBUTION WIDTH 14.9 % (9.4-14.8)
[2019-10-26] MEDS ORDERED: ONDANSETRON 2MG/ML, 2ML ONE (11:14)
[2019-10-26] MEDS ORDERED: MORPHINE SULFATE 4 MG/ML, 1ML ONE (11:14)
[2019-10-26 11:15] LABS: HCT (SEDRATE) 40.2 % (39.2-51.8)
--- NOTE | 2019-10-26 11:22 | NUR ---
reliability technologist at bedside removing aviva. Unasyn hung. C/O pain with suture removal. Zofran and moprhine admin per MD order.
[2019-10-26 11:26] LABS: ALANINE AMINOTRANSFERASE 30 U/L (12-78); ALBUMIN 2.8 g/dL (3.4-5.0); ANION GAP 6 mmol/L (5-15); CALCIUM 8.7 mg/dL (8.5-10.1); CHLORIDE 107 mmol/L (98-107); CREATININE 0.76 mg/dL (0.7-1.3)
[2019-10-26] MEDS ORDERED: MORPHINE SULFATE 4 MG/ML, 1ML IVPush PRN (11:30)
[2019-10-26] MEDS ORDERED: ONDANSETRON 2MG/ML, 2ML IVPush ONE (11:30)
[2019-10-26 11:33] LABS: ALKALINE PHOSPHATASE 121 U/L (45-117); BILIRUBIN,TOTAL 0.3 mg/dL (0.2-1.0); TOTAL PROTEIN 7.3 g/dL (6.4-8.2)
--- NOTE | 2019-10-26 12:35 | NUR ---
Report to STANISLAW Mahmood.
[2019-10-26] MEDS ORDERED: ACETAMINOPHEN 325 MG TABLET PO PRN (13:00)
[2019-10-26] MEDS ORDERED: LABETALOL 5MG/ML, 20ML IVPush PRN (13:00)
[2019-10-26] MEDS ORDERED: ONDANSETRON 2MG/ML, 2ML IVPush PRN (13:00)
[2019-10-26] MEDS ORDERED: OXYcodone/APAP 5/325MG TABLET PO PRN (13:00)
[2019-10-26] MEDS ORDERED: VANCOMYCIN PER PHARMACY MC PRN (13:00)
[2019-10-26] MEDS ORDERED: hydrALAzine 20 MG/ML, 1ML IVPush PRN (13:00)
[2019-10-26] MEDS ORDERED: PHARMACOKINETIC CONSULTATION MC ONE (13:30)
[2019-10-26] MEDS ORDERED: PHARMACOKINETIC MONITORING MC PRN (13:30)
[2019-10-26] MEDS ORDERED: VANCOMYCIN 1,400 MG in SODIUM CHLORIDE 0.9% 250 ML IV ONE (13:45)
[2019-10-26] MEDS: SODIUM CHLORIDE 0.9% 1,000 ML IV SCH (14:43)
[2019-10-26] MEDS: HEPARIN 5,000 UNITS/ML, 1ML SQ SCH ×2 (14:45→20:52)
[2019-10-26] MEDS: ASPIRIN 81 MG TABLET EC PO SCH (14:45)
[2019-10-26] MEDS: PIPERACILLIN/TAZO/PMX 3.375GM 50 ML IV SCH ×2 (17:05→22:50)
[2019-10-26 18:12] VITALS: BP 128/76
[2019-10-26] MEDS: ATORVASTATIN 40 MG TABLET PO SCH (20:52)
[2019-10-26 20:56] VITALS: BP 121/75
[2019-10-27 01:07] VITALS: BP 120/71
[2019-10-27] MEDS: VANCOMYCIN 1,100 MG in SODIUM CHLORIDE 0.9% 250 ML IV SCH ×2 (01:58→13:14)
[2019-10-27] MEDS: SODIUM CHLORIDE 0.9% 1,000 ML IV SCH ×2 (01:58→19:46)
[2019-10-27] MEDS: HEPARIN 5,000 UNITS/ML, 1ML SQ SCH ×3 (04:46→19:45)
[2019-10-27] MEDS: PIPERACILLIN/TAZO/PMX 3.375GM 50 ML IV SCH ×2 (04:46→10:47)
[2019-10-27 05:34] LABS: BASOPHILS # (AUTO) 0.15 x10^3/uL (0-0.1); BASOPHILS % (AUTO) 1 % (0-1); EOSINOPHILS # (AUTO) 0.33 x10^3/uL (0-0.4); EOSINOPHILS % (AUTO) 3 % (1-7); LYMPHOCYTES % (AUTO) 13 % (22-44); MD NO; MEAN CORPUSCULAR HEMOGLOBIN 27.3 pg (27.5-34.5); MEAN CORPUSCULAR HGB CONC 32.4 g/dL (33.2-36.2); MEAN CORPUSCULAR VOLUME 84.3 fL (81-97); MEAN PLATELET VOLUME 7.5 fL (7.4-10.4); MONOCYTES # (AUTO) 0.58 x10^3/uL (0.2-0.8); MONOCYTES % (AUTO) 6 % (2-9); NEUTROPHILS # (AUTO) 7.93 x10^3/uL (1.8-6.8); NEUTROPHILS % (AUTO) 77 % (42-75); PLATELET COUNT 521 x10^3/uL (130-400); RED BLOOD COUNT 4.68 x10^6/uL (4.38-5.82); RED CELL DISTRIBUTION WIDTH 14.9 % (9.4-14.8)
[2019-10-27 05:39] LABS: ALANINE AMINOTRANSFERASE 23 U/L (12-78); ALBUMIN 2.4 g/dL (3.4-5.0); ANION GAP 7 mmol/L (5-15); CALCIUM 8.4 mg/dL (8.5-10.1); CHLORIDE 109 mmol/L (98-107); CREATININE 0.86 mg/dL (0.7-1.3)
[2019-10-27 05:49] LABS: ALKALINE PHOSPHATASE 103 U/L (45-117); BILIRUBIN,TOTAL 0.5 mg/dL (0.2-1.0); TOTAL PROTEIN 6.5 g/dL (6.4-8.2)
[2019-10-27] MEDS: POTASSIUM CHLORIDE 20 MEQ TAB.ER.PRT PO SCH (08:00)
[2019-10-27 08:28] VITALS: BP 145/89
[2019-10-27] MEDS: METOPROLOL SUCCINATE 25 MG TAB.ER.24H PO SCH (09:00)
[2019-10-27] MEDS: ASPIRIN 81 MG TABLET EC PO SCH (09:00)
[2019-10-27] MEDS ORDERED: BUPIVACAINE/PF 0.5% ONE (13:39)
[2019-10-27] MEDS ORDERED: EPINEPHRINE 1 MG/ML, 1ML ONE (13:39)
[2019-10-27] MEDS ORDERED: CHLORHEXIDINE 15 ML UDC ONE (13:51)
[2019-10-27] MEDS ORDERED: FENTANYL PF 250 MCG/5ML ONE (13:55)
[2019-10-27] MEDS ORDERED: CHLORHEXIDINE 15 ML UDC MM ONE (14:00)
[2019-10-27] MEDS ORDERED: PROPOFOL 10 MG/ML, 20ML ONE (14:15)
[2019-10-27] MEDS ORDERED: ONDANSETRON 2MG/ML, 2ML ONE (14:15)
[2019-10-27] MEDS ORDERED: FENTANYL PF 100 MCG/2ML IV PRN (14:30)
[2019-10-27] MEDS ORDERED: METOPROLOL 1 MG/ML, 5ML IV PRN (14:30)
[2019-10-27] MEDS ORDERED: ONDANSETRON 2MG/ML, 2ML IVPush PRN (14:30)
[2019-10-27] MEDS ORDERED: HYDROmorphone 1 MG/ML, 1ML INJ IVPush PRN (14:30)
[2019-10-27] MEDS ORDERED: PROMETHAZINE 25 MG SUPP PR PRN (14:30)
[2019-10-27] MEDS ORDERED: hydrALAzine 20 MG/ML, 1ML IV PRN (14:30)
[2019-10-27] MEDS ORDERED: PROMETHAZINE 25 MG/ML, 1ML IVPush PRN (14:30)
[2019-10-27] MEDS ORDERED: ACETAMINOPHEN 325 MG TABLET PO PRN (14:30)
[2019-10-27] MEDS ORDERED: OXYcodone 5 MG/5 ML ORAL.SOL UDC PO PRN (14:30)
[2019-10-27] MEDS ORDERED: LABETALOL 5MG/ML, 20ML IV PRN (14:30)
[2019-10-27] MEDS ORDERED: MIDAZOLAM 1 MG/ML, 2ML ONE (14:42)
[2019-10-27 16:06] VITALS: BP 140/79
[2019-10-27] MEDS: ATORVASTATIN 40 MG TABLET PO SCH (19:46)
[2019-10-27 20:12] VITALS: BP 122/72
[2019-10-28 00:58] VITALS: BP 136/82
[2019-10-28] MEDS: VANCOMYCIN 1,100 MG in SODIUM CHLORIDE 0.9% 250 ML IV SCH (02:00)
[2019-10-28 04:38] LABS: ANION GAP 4 mmol/L (5-15); CHLORIDE 111 mmol/L (98-107); CREATININE 0.75 mg/dL (0.7-1.3)
[2019-10-28 04:47] LABS: BASOPHILS # (AUTO) 0.06 x10^3/uL (0-0.1); BASOPHILS % (AUTO) 1 % (0-1); EOSINOPHILS % (AUTO) 5 % (1-7); LYMPHOCYTES # (AUTO) 1.39 x10^3/uL (1-3.4); LYMPHOCYTES % (AUTO) 17 % (22-44); MD NO; MEAN CORPUSCULAR HEMOGLOBIN 26.9 pg (27.5-34.5); MEAN CORPUSCULAR VOLUME 83.9 fL (81-97); MEAN PLATELET VOLUME 8.2 fL (7.4-10.4); MONOCYTES # (AUTO) 0.58 x10^3/uL (0.2-0.8); MONOCYTES % (AUTO) 7 % (2-9); NEUTROPHILS # (AUTO) 5.77 x10^3/uL (1.8-6.8); NEUTROPHILS % (AUTO) 70 % (42-75); PLATELET COUNT 514 x10^3/uL (130-400); RED BLOOD COUNT 4.46 x10^6/uL (4.38-5.82); RED CELL DISTRIBUTION WIDTH 14.7 % (9.4-14.8)
[2019-10-28] MEDS: HEPARIN 5,000 UNITS/ML, 1ML SQ SCH ×3 (04:55→21:47)
[2019-10-28 07:25] VITALS: BP 147/86
[2019-10-28] MEDS: POTASSIUM CHLORIDE 20 MEQ TAB.ER.PRT PO SCH (08:31)
[2019-10-28] MEDS: METOPROLOL SUCCINATE 25 MG TAB.ER.24H PO SCH (08:31)
[2019-10-28] MEDS: ASPIRIN 81 MG TABLET EC PO SCH (08:31)
[2019-10-28] MEDS: SODIUM CHLORIDE 0.9% 1,000 ML IV SCH (10:43)
[2019-10-28] MEDS ORDERED: POTASSIUM CHLORIDE 20 MEQ TAB.ER.PRT PO ONE (11:00)
[2019-10-28 13:35] VITALS: BP 127/74
[2019-10-28 19:52] VITALS: BP 123/71
[2019-10-28] MEDS: LINEZOLID 600 MG TABLET PO SCH (21:46)
[2019-10-28] MEDS: ATORVASTATIN 40 MG TABLET PO SCH (21:46)
[2019-10-29 00:38] VITALS: BP 139/84
[2019-10-29 05:12] LABS: BASOPHILS # (AUTO) 0.04 x10^3/uL (0-0.1); BASOPHILS % (AUTO) 0 % (0-1); EOSINOPHILS # (AUTO) 0.46 x10^3/uL (0-0.4); EOSINOPHILS % (AUTO) 5 % (1-7); LYMPHOCYTES # (AUTO) 1.64 x10^3/uL (1-3.4); LYMPHOCYTES % (AUTO) 18 % (22-44); MD NO; MEAN CORPUSCULAR HEMOGLOBIN 26.9 pg (27.5-34.5); MEAN CORPUSCULAR HGB CONC 32.1 g/dL (33.2-36.2); MEAN PLATELET VOLUME 8.2 fL (7.4-10.4); MONOCYTES # (AUTO) 0.37 x10^3/uL (0.2-0.8); MONOCYTES % (AUTO) 4 % (2-9); NEUTROPHILS # (AUTO) 6.63 x10^3/uL (1.8-6.8); NEUTROPHILS % (AUTO) 73 % (42-75); PLATELET COUNT 578 x10^3/uL (130-400); RED BLOOD COUNT 4.88 x10^6/uL (4.38-5.82)
[2019-10-29 05:16] LABS: ANION GAP 5 mmol/L (5-15); CALCIUM 8.7 mg/dL (8.5-10.1); CHLORIDE 111 mmol/L (98-107); CREATININE 0.77 mg/dL (0.7-1.3)
[2019-10-29] MEDS: HEPARIN 5,000 UNITS/ML, 1ML SQ SCH ×3 (06:38→20:25)
[2019-10-29 07:35] VITALS: BP 130/74
[2019-10-29] MEDS: METOPROLOL SUCCINATE 25 MG TAB.ER.24H PO SCH (08:47)
[2019-10-29] MEDS: ASPIRIN 81 MG TABLET EC PO SCH (08:47)
[2019-10-29] MEDS: POTASSIUM CHLORIDE 20 MEQ TAB.ER.PRT PO SCH (08:48)
[2019-10-29] MEDS: LINEZOLID 600 MG TABLET PO SCH ×2 (08:48→20:25)
[2019-10-29 14:08] VITALS: BP 119/73
[2019-10-29 20:24] VITALS: BP 123/77
[2019-10-29] MEDS: ATORVASTATIN 40 MG TABLET PO SCH (20:25)
[2019-10-30 01:08] VITALS: BP 109/68
[2019-10-30] MEDS: HEPARIN 5,000 UNITS/ML, 1ML SQ SCH ×3 (04:46→21:04)
[2019-10-30 07:24] VITALS: BP 116/73
[2019-10-30] MEDS: LINEZOLID 600 MG TABLET PO SCH ×2 (09:13→21:04)
[2019-10-30] MEDS: METOPROLOL SUCCINATE 25 MG TAB.ER.24H PO SCH (09:13)
[2019-10-30] MEDS: ASPIRIN 81 MG TABLET EC PO SCH (09:13)
[2019-10-30] MEDS: POTASSIUM CHLORIDE 20 MEQ TAB.ER.PRT PO SCH (09:13)
[2019-10-30 14:49] VITALS: BP 116/75
[2019-10-30 20:10] VITALS: BP 120/76
[2019-10-30] MEDS: ATORVASTATIN 40 MG TABLET PO SCH (21:04)
[2019-10-31 04:37] VITALS: BP 116/78
[2019-10-31] MEDS: HEPARIN 5,000 UNITS/ML, 1ML SQ SCH (04:37)
[2019-10-31] MEDS ORDERED: POTA20TA6 PO (08:16)
[2019-10-31] MEDS ORDERED: LINE600T15 PO (08:16)
[2019-10-31 08:27] VITALS: BP 129/82
[2019-10-31] MEDS: ASPIRIN 81 MG TABLET EC PO SCH (08:52)
[2019-10-31] MEDS: LINEZOLID 600 MG TABLET PO SCH (08:53)
[2019-10-31] MEDS: POTASSIUM CHLORIDE 20 MEQ TAB.ER.PRT PO SCH (08:53)
[2019-10-31] MEDS: METOPROLOL SUCCINATE 25 MG TAB.ER.24H PO SCH (08:53)
== END 2019-10-31 11:50 | disposition home or self-care (01) | DRG 312 ==
LOC: ED 09:21 → EDIP 11:33 → 3N 12:45
PROVIDERS: ADMIT Internal Medicine; ATTEND Internal Medicine Infectious Disease
PROC: 0HBLXZZ Excision of Left Lower Leg Skin, External Approach (ICD-10-PCS; principal; 2019-10-27 14:15)
DX: T87.44 Infection of amputation stump, left lower extremity (principal); G82.20 Paraplegia, unspecified; L03.116 Cellulitis of left lower limb; J43.9 Emphysema, unspecified; L97.519 Non-pressure chronic ulcer of other part of right foot with unspecified severity; B95.62 Methicillin resistant Staphylococcus aureus infection as the cause of diseases classified elsewhere; E78.5 Hyperlipidemia, unspecified; E87.6 Hypokalemia; F17.200 Nicotine dependence, unspecified, uncomplicated; I10 Essential (primary) hypertension; I25.10 Atherosclerotic heart disease of native coronary artery without angina pectoris; Y83.5 Amputation of limb(s) as the cause of abnormal reaction of the patient, or of later complication, without mention of misadventure at the time of the procedure; T87.81 Dehiscence of amputation stump; I73.9 Peripheral vascular disease, unspecified; D47.3 Essential (hemorrhagic) thrombocythemia; Y82.8 Other medical devices associated with adverse incidents; Z89.612 Acquired absence of left leg above knee; Z79.82 Long term (current) use of aspirin; Z91.19 Patient's noncompliance with other medical treatment and regimen; Z95.5 Presence of coronary angioplasty implant and graft; Y92.89 Other specified places as the place of occurrence of the external cause
CPT/HCPCS: 36415; 80048; 80053; 83605; 85025; 85651; 86140; 87040; 87070; 87075; 87077; 87147; 87186; 87205; 96361; 96365; 96375; 99285; G0378; J0171; J0295; J1644; J2250; J2405; J2543; J2704; J3010; J3370; J2270; J7030; J7050

== ENCOUNTER 2020-03-31 04:03 | Emergency (ER) | payer MEDICAID ==
[~2020-03-31] VITALS: Ht 180.3 cm; Wt 59.0 kg
[~2020-03-31 04:03] MED LIST changes: +LINE600T15 PO; +POTA20TA6 PO
--- NOTE | 2020-03-31 04:22 | NUR ---
ASSESSMENT MADE. CHART UP FOR MD TO SEE.
--- NOTE | 2020-03-31 04:37 | NUR ---
PA at bedside at this time.
--- NOTE | 2020-03-31 04:56 | NUR ---
research lab assistant at bedside.
[2020-03-31 05:04] LABS: MEAN CORPUSCULAR HEMOGLOBIN 28.6 pg (27.5-34.5); MEAN CORPUSCULAR HGB CONC 34.3 g/dL (33.2-36.2); MEAN PLATELET VOLUME 7.4 fL (7.4-10.4); PLATELET COUNT 620 x10^3/uL (130-400); RED CELL DISTRIBUTION WIDTH 15.6 % (9.4-14.8)
--- NOTE | 2020-03-31 05:13 | NUR ---
X RAY DONE. STRAIGHT CATHETER PERFORMED. URINE SAMPLE OBTAINED AND SENT TO LAB.
[2020-03-31 05:16] LABS: ALBUMIN 3.9 g/dL (3.4-5.0); ANION GAP 5 mmol/L (5-15); CALCIUM 10.7 mg/dL (8.5-10.1); CHLORIDE 107 mmol/L (98-107); CREATININE 1.24 mg/dL (0.7-1.3)
[2020-03-31] MEDS ORDERED: IBUPROFEN 600 MG TABLET ONE (05:17)
--- NOTE | 2020-03-31 05:19 | NUR ---
patient c/o neck soreness. medicated.
[2020-03-31 05:26] LABS: MICROSCOPIC INDICATED
[2020-03-31] MEDS ORDERED: IBUPROFEN 600 MG TABLET PO ONE (05:30)
[2020-03-31 05:46] LABS: MD YES
[2020-03-31 05:47] LABS: BAND#(MANUAL) 0.51 x10^3/uL; BANDS%(MANUAL) 3 % (0-7); EOS#(MANUAL) 0.17 x10^3/uL (0.0-0.4); EOS% (MANUAL) 1 % (1-7); LYMPH#(MANUAL) 2.03 x10^3/uL (1-3.4); LYMPHS% (MANUAL) 12 % (22-44); MONOS#(MANUAL) 1.69 x10^3/uL (0.3-2.7); MONOS% (MANUAL) 10 % (2-9); SEG#(MANUAL) 12.51 x10^3/uL (1.8-6.8); SEGS% (MANUAL) 74 % (42-75)
[2020-03-31 05:48] LABS: <PLATELET ESTIMATE> INCREASED; <PLT MORPHOLOGY> NORMAL PLT MORPH; <RBC MORPHOLOGY> NORMAL; SMUDGE CELLS 1+
--- NOTE | 2020-03-31 06:22 | NUR ---
patient at bedside for re-evaluation.
[2020-03-31 06:35] VITALS: BP 158/98
--- NOTE | 2020-03-31 06:35 | NUR ---
patient discharged with prescription and instruction. verbalized understanding.
== END 2020-03-31 06:40 | disposition home or self-care (01) ==
LOC: ED 05:57
DX: N30.00 Acute cystitis without hematuria (principal); M79.652 Pain in left thigh; I44.4 Left anterior fascicular block; I49.3 Ventricular premature depolarization; J43.9 Emphysema, unspecified; I25.10 Atherosclerotic heart disease of native coronary artery without angina pectoris; I10 Essential (primary) hypertension; F17.210 Nicotine dependence, cigarettes, uncomplicated; Z95.9 Presence of cardiac and vascular implant and graft, unspecified; W05.0XXA Fall from non-moving wheelchair, initial encounter; Y93.89 Activity, other specified; Y92.89 Other specified places as the place of occurrence of the external cause; Y99.8 Other external cause status
CPT/HCPCS: 36415; 71045; 80048; 81001; 82040; 85025; 87077; 87086; 87147; 93005; 99285; 99406

== ENCOUNTER 2020-09-01 13:12 | Emergency (ER) | payer MEDICAID ==
[~2020-09-01] VITALS: Ht 177.8 cm; Wt 75.0 kg
[2020-09-01 15:09] VITALS: BP 167/105
== END 2020-09-01 15:59 | disposition home or self-care (01) ==
LOC: ED 14:04
DX: L89.310 Pressure ulcer of right buttock, unstageable (principal); L89.899 Pressure ulcer of other site, unspecified stage; I10 Essential (primary) hypertension; Z99.3 Dependence on wheelchair
CPT/HCPCS: 99283

== ENCOUNTER 2020-11-06 22:43 | Inpatient (IN) | payer MEDICAID ==
[~2020-11-06] VITALS: Ht 172.7 cm; Wt 55.0 kg
[2020-11-06] MEDS ORDERED: VANCOMYCIN PER PHARMACY MC ONE (23:00)
[2020-11-06] MEDS ORDERED: ACETAMINOPHEN 500 MG TABLET PO ONE (23:00)
[2020-11-06] MEDS ORDERED: MORPHINE SULFATE 4 MG/ML, 1ML IVPush PRN (23:00)
[2020-11-06] MEDS ORDERED: ONDANSETRON 2MG/ML, 2ML IVPush ONE (23:00)
[2020-11-06] MEDS ORDERED: CEFTRIAXONE 1,000 MG in SODIUM CHLORIDE 0.9% 50 ML IVPB ONE (23:00)
[2020-11-06] MEDS ORDERED: SODIUM CHLORIDE 0.9% 1,000ML IVBOLUS ONE (23:00)
[2020-11-06] MEDS ORDERED: MORPHINE SULFATE 4 MG/ML, 1ML ONE (23:08)
[2020-11-06] MEDS ORDERED: ACETAMINOPHEN 500 MG TABLET ONE (23:08)
[2020-11-06] MEDS ORDERED: ONDANSETRON 2MG/ML, 2ML ONE (23:08)
[2020-11-06 23:22] LABS: MEAN CORPUSCULAR HEMOGLOBIN 29.1 pg (27.5-34.5); MEAN CORPUSCULAR HGB CONC 33.9 g/dL (33.2-36.2); MEAN PLATELET VOLUME 7.1 fL (7.4-10.4); PLATELET COUNT 206 x10^3/uL (130-400); RED BLOOD COUNT 4.87 x10^6/uL (4.38-5.82); RED CELL DISTRIBUTION WIDTH 15.9 % (9.4-14.8)
[2020-11-06] MEDS ORDERED: VANCOMYCIN 1,400 MG in SODIUM CHLORIDE 0.9% 250 ML IV ONE (23:30)
[2020-11-06] MEDS ORDERED: CEFTRIAXONE 1,000 MG ONE (23:33)
[2020-11-06 23:37] LABS: ALANINE AMINOTRANSFERASE 23 U/L (12-78); ALBUMIN 2.2 g/dL (3.4-5.0); ANION GAP 17 mmol/L (5-15); CALCIUM 7.5 mg/dL (8.5-10.1); CHLORIDE 104 mmol/L (98-107)
[2020-11-06 23:42] LABS: ALKALINE PHOSPHATASE 227 U/L (45-117); BILIRUBIN,TOTAL 0.6 mg/dL (0.2-1.0); CREATININE 1.95 mg/dL (0.7-1.3); TOTAL PROTEIN 5.9 g/dL (6.4-8.2); TROPONIN I < 0.015 ng/mL (0.000-0.045)
[2020-11-06 23:46] LABS: MICROSCOPIC INDICATED
[2020-11-06 23:51] LABS: MD YES
--- NOTE | 2020-11-06 23:51 | NUR ---
received report from STANISLAW Hawk
[2020-11-06] MEDS ORDERED: OMNIPAQUE 350 MG/ML, 100ML BOTTLE ONE (23:57)
--- NOTE | 2020-11-07 00:02 | NUR ---
back from CT scan. re-hooked to monitor.
[2020-11-07 00:04] LABS: <PLATELET ESTIMATE> ADEQUATE; ANISOCYTOSIS 1+; BAND#(MANUAL) 0.57 x10^3/uL; BANDS%(MANUAL) 22 % (0-7); LYMPH#(MANUAL) 0.03 x10^3/uL (1-3.4); LYMPHS% (MANUAL) 1 % (22-44); MONOS#(MANUAL) 0.03 x10^3/uL (0.3-2.7); MONOS% (MANUAL) 1 % (2-9); SEG#(MANUAL) 1.98 x10^3/uL (1.8-6.8); SEGS% (MANUAL) 76 % (42-75)
[2020-11-07 00:05] LABS: SMALL PLATELETS 1+
--- NOTE | 2020-11-07 01:14 | NUR ---
REPORT TO STANISLAW PAUL IN OR
[2020-11-07] MEDS ORDERED: OMNIPAQUE 350 MG/ML, 50 ML BOTTLE ONE (01:35)
[2020-11-07] MEDS ORDERED: MIDAZOLAM 1 MG/ML, 2ML ONE (01:59)
[2020-11-07] MEDS ORDERED: PROPOFOL 50 ML ONE (01:59)
[2020-11-07] MEDS ORDERED: FENTANYL PF 250 MCG/5ML ONE (01:59)
[2020-11-07] MEDS ORDERED: VANCOMYCIN PER PHARMACY MC PRN (02:00)
[2020-11-07] MEDS ORDERED: PHARMACY MAY ADJ FOR RENAL FX MC PRN (02:00)
[2020-11-07] MEDS ORDERED: EPHEDRINE 50 MG/ML, 1ML IM PRN (02:30)
[2020-11-07] MEDS ORDERED: morphine SULFATE 10 MG/ML, 1ML IVPush PRN (02:30)
[2020-11-07] MEDS ORDERED: ONDANSETRON 2MG/ML, 2ML IVPush PRN (02:30)
[2020-11-07] MEDS ORDERED: OXYcodone 5 MG/5 ML ORAL.SOL UDC PO PRN (02:30)
[2020-11-07] MEDS ORDERED: MEPERIDINE/PF 25MG/0.5ML IVPush PRN (02:30)
[2020-11-07] MEDS ORDERED: EPHEDRINE 50 MG/ML, 1ML IVPush PRN (02:30)
[2020-11-07] MEDS ORDERED: PROMETHAZINE 25 MG/ML, 1ML IVPush PRN (02:30)
[2020-11-07] MEDS ORDERED: LABETALOL 5MG/ML, 20ML IV PRN (02:30)
[2020-11-07] MEDS ORDERED: FENTANYL PF 100 MCG/2ML IV PRN (02:30)
[2020-11-07] MEDS ORDERED: DIPHENHYDRAMINE 50 MG/ML, 1ML IVPush PRN (02:30)
[2020-11-07] MEDS ORDERED: DIAZEPAM 5 MG/ML, 2ML IVPush PRN (02:30)
[2020-11-07] MEDS ORDERED: DEXAMETHASONE 4 MG/ML, 1ML ONE (02:48)
[2020-11-07] MEDS ORDERED: ROCURONIUM 10MG/ML,5ML ONE (02:48)
[2020-11-07] MEDS ORDERED: ONDANSETRON 2MG/ML, 2ML ONE (02:48)
[2020-11-07] MEDS ORDERED: SUCCINYLCHOLINE 20 MG/ML, 10ML ONE (02:48)
[2020-11-07] MEDS ORDERED: VASOPRESSIN 20 UNIT in SODIUM CHLORIDE 0.9% 99 ML IV PRN ×3 (03:00→04:00)
[2020-11-07] MEDS ORDERED: LACTATED RINGERS 1,000 ML IV SCH (03:30)
[2020-11-07] MEDS ORDERED: NOREPINEPHRINE 8 MG in SODIUM CHLORIDE 0.9% 242 ML IV PRN (03:30)
[2020-11-07] MEDS ORDERED: PROPOFOL 10 MG/ML, 20ML ONE (03:49)
[2020-11-07] MEDS ORDERED: PROPOFOL 100 ML IV ONE (03:51)
[2020-11-07] MEDS ORDERED: BISACODYL 10 MG SUPP PR PRN (04:00)
[2020-11-07] MEDS ORDERED: PHARMACY MAY ADJ FOR RENAL FX MC SCH (04:00)
[2020-11-07] MEDS ORDERED: SENNA/DOCUSATE TABLET NG PRN (04:00)
[2020-11-07] MEDS ORDERED: LIDOCAINE-MPF 1%, 2ML ENDO PRN (04:00)
[2020-11-07] MEDS ORDERED: SENNA 176 MG/5 ML ORAL SOL NG PRN (04:00)
[2020-11-07] MEDS ORDERED: FENTANYL PF 100 MCG/2ML IVPush PRN (04:00)
[2020-11-07] MEDS ORDERED: LACTULOSE 20 GM/30 ML UDC NG PRN (04:00)
[2020-11-07] MEDS: MEROPENEM 1 GM in SODIUM CHLORIDE 0.9% 100 ML IV SCH ×2 (04:14→16:59)
[2020-11-07] MEDS: PROPOFOL 100 ML IV PRN ×2 (04:31→11:48)
[2020-11-07] MEDS ORDERED: PHARMACOKINETIC CONSULTATION MC ONE (05:00)
[2020-11-07] MEDS ORDERED: PHARMACOKINETIC MONITORING MC PRN (05:00)
[2020-11-07 06:32] LABS: MEAN CORPUSCULAR HEMOGLOBIN 28.6 pg (27.5-34.5); MEAN PLATELET VOLUME 8.7 fL (7.4-10.4); PLATELET COUNT 166 x10^3/uL (130-400); RED CELL DISTRIBUTION WIDTH 16.1 % (9.4-14.8)
[2020-11-07 06:49] LABS: ANION GAP 11 mmol/L (5-15); CALCIUM 6.8 mg/dL (8.5-10.1); CHLORIDE 108 mmol/L (98-107); CREATININE 1.55 mg/dL (0.7-1.3)
[2020-11-07 07:03] LABS: MD YES
[2020-11-07 07:06] LABS: <PLATELET ESTIMATE> ADEQUATE; ANISOCYTOSIS 1+; BAND#(MANUAL) 3.84 x10^3/uL; BANDS%(MANUAL) 21 % (0-7); METAMYELOCYTES% (MANUAL) 12 % (0-1); MONOS#(MANUAL) 0.18 x10^3/uL (0.3-2.7); MONOS% (MANUAL) 1 % (2-9); PMNS WITH VACUOLES 1+; SEG#(MANUAL) 12.08 x10^3/uL (1.8-6.8); SEGS% (MANUAL) 66 % (42-75)
[2020-11-07 07:07] LABS: LARGE PLATELETS 1+
[2020-11-07 07:09] LABS: ECHINOCYTES 1+
[2020-11-07] MEDS ORDERED: PANTOPRAZOLE 40 MG IV IV SCH (09:00)
[2020-11-07] MEDS ORDERED: CALCIUM GLUCONATE 4.6 MEQ in SODIUM CHLORIDE 0.9% 100 ML IV ONE (09:30)
[2020-11-07] MEDS: BISACODYL 10 MG SUPP PR SCH ×2 (11:41→20:47)
[2020-11-07] MEDS: LACTULOSE 20 GM/30 ML UDC PO SCH ×2 (11:42→20:55)
[2020-11-07] MEDS: SENNA 176 MG/5 ML ORAL SOL NG SCH ×2 (11:48→20:55)
[2020-11-07] MEDS ORDERED: VANCOMYCIN 1,000 MG in SODIUM CHLORIDE 0.9% 100 ML IV ONE (12:00)
--- NOTE | 2020-11-07 15:41 | NUR ---
Tube feed:Promote TF goal: 55 ml/hr on propofol, 65 ml/hr off propofol Addendum: 11/07/20 at [address] Amended: Links added.
[2020-11-07] MEDS: ATORVASTATIN 40 MG TABLET PO SCH (20:57)
[2020-11-07] MEDS ORDERED: ATORVASTATIN 20 MG TABLET ONE (20:57)
[2020-11-08] MEDS ORDERED: DIPHENHYDRAMINE 25 MG CAPSULE ONE (02:19)
[2020-11-08] MEDS: DIPHENHYDRAMINE 25 MG CAPSULE PO PRN ×3 (02:20→23:29)
[2020-11-08 03:18] LABS: MEAN CORPUSCULAR HEMOGLOBIN 28.5 pg (27.5-34.5); MEAN CORPUSCULAR HGB CONC 33.5 g/dL (33.2-36.2); MEAN PLATELET VOLUME 8.3 fL (7.4-10.4); PLATELET COUNT 97 x10^3/uL (130-400); RED BLOOD COUNT 4.15 x10^6/uL (4.38-5.82)
[2020-11-08 03:26] LABS: ANION GAP 6 mmol/L (5-15); CALCIUM 7.5 mg/dL (8.5-10.1); CHLORIDE 114 mmol/L (98-107)
[2020-11-08] MEDS ORDERED: LACTATED RINGERS 1,000 ML IV SCH (03:30)
[2020-11-08] MEDS: MEROPENEM 1 GM in SODIUM CHLORIDE 0.9% 100 ML IV SCH ×3 (04:00→20:31)
[2020-11-08 04:24] LABS: MD YES
[2020-11-08 04:28] LABS: ANISOCYTOSIS 1+; BAND#(MANUAL) 8.15 x10^3/uL; BANDS%(MANUAL) 28 % (0-7); LYMPH#(MANUAL) 0.58 x10^3/uL (1-3.4); LYMPHS% (MANUAL) 2 % (22-44); MONOS#(MANUAL) 0.87 x10^3/uL (0.3-2.7); MONOS% (MANUAL) 3 % (2-9); SEGS% (MANUAL) 67 % (42-75)
[2020-11-08 04:29] LABS: ECHINOCYTES 1+; SCHISTOCYTES 1+
[2020-11-08 04:30] LABS: PMNS WITH VACUOLES 1+
[2020-11-08 04:31] LABS: <PLATELET ESTIMATE> DECREASED
[2020-11-08 04:32] LABS: LARGE PLATELETS 1+
[2020-11-08] MEDS ORDERED: ONDANSETRON 2MG/ML, 2ML IV PRN (08:00)
[2020-11-08] MEDS: LACTULOSE 20 GM/30 ML UDC PO SCH ×2 (08:28→20:32)
[2020-11-08] MEDS: ASPIRIN 81 MG TABLET EC PO SCH (08:28)
[2020-11-08 18:14] LABS: AMPHETAMINE SCREEN, URINE Positive (Negative); BARBITURATE SCREEN, URINE Negative (Negative); BENZODIAZEPINE SCREEN, URINE Negative (Negative); CANNABINOID SCREEN, URINE Positive (Negative); COCAINE SCREEN, URINE Negative (Negative); METHADONE SCREEN, URINE Negative (Negative); OPIATE SCREEN, URINE Negative (Negative)
[2020-11-08 20:15] VITALS: BP 141/85
[2020-11-08] MEDS: ATORVASTATIN 40 MG TABLET PO SCH (20:31)
[2020-11-08] MEDS: SENNA 176 MG/5 ML ORAL SOL NG SCH (20:32)
[2020-11-08] MEDS: BISACODYL 10 MG SUPP PR SCH (20:32)
[2020-11-09] VITALS (8 sets, daily range): BP systolic 139–170; BP diastolic 89–113
[2020-11-09] MEDS ORDERED: ACETAMINOPHEN 325 MG TABLET ONE (01:52)
[2020-11-09] MEDS: ACETAMINOPHEN 325 MG TABLET PO PRN ×2 (01:57→18:30)
[2020-11-09] MEDS: MEROPENEM 1 GM in SODIUM CHLORIDE 0.9% 100 ML IV SCH ×3 (04:08→19:54)
[2020-11-09 05:37] LABS: MEAN CORPUSCULAR HEMOGLOBIN 28.9 pg (27.5-34.5); MEAN CORPUSCULAR HGB CONC 34.3 g/dL (33.2-36.2); MEAN PLATELET VOLUME 9.7 fL (7.4-10.4); PLATELET COUNT 75 x10^3/uL (130-400); RED BLOOD COUNT 4.58 x10^6/uL (4.38-5.82); RED CELL DISTRIBUTION WIDTH 15.9 % (9.4-14.8)
[2020-11-09 05:49] LABS: ANION GAP 4 mmol/L (5-15); CALCIUM 7.8 mg/dL (8.5-10.1); CHLORIDE 110 mmol/L (98-107); CREATININE 1.01 mg/dL (0.7-1.3)
[2020-11-09 06:13] LABS: MD YES
[2020-11-09 06:15] LABS: BAND#(MANUAL) 2.57 x10^3/uL; BANDS%(MANUAL) 12 % (0-7); LYMPH#(MANUAL) 0.43 x10^3/uL (1-3.4); LYMPHS% (MANUAL) 2 % (22-44); MONOS#(MANUAL) 0.64 x10^3/uL (0.3-2.7); MONOS% (MANUAL) 3 % (2-9); SEG#(MANUAL) 17.76 x10^3/uL (1.8-6.8); SEGS% (MANUAL) 83 % (42-75)
[2020-11-09 06:16] LABS: <PLATELET ESTIMATE> DECREASED; ANISOCYTOSIS 1+; ECHINOCYTES 1+; LARGE PLATELETS 1+
[2020-11-09 06:17] LABS: PMNS WITH VACUOLES 1+
[2020-11-09] MEDS ORDERED: POTASSIUM CHLORIDE 20 MEQ TAB.ER.PRT PO ONE (06:30)
[2020-11-09] MEDS: ASPIRIN 81 MG TABLET EC PO SCH (07:58)
[2020-11-09] MEDS: LACTULOSE 20 GM/30 ML UDC PO SCH ×2 (07:58→19:53)
[2020-11-09] MEDS: METOPROLOL SUCCINATE 25 MG TAB.ER.24H PO SCH (18:57)
[2020-11-09] MEDS: DIPHENHYDRAMINE 25 MG CAPSULE PO PRN (19:53)
[2020-11-09] MEDS: ATORVASTATIN 40 MG TABLET PO SCH (19:53)
[2020-11-09] MEDS: BISACODYL 10 MG SUPP PR SCH (19:54)
[2020-11-09] MEDS: SENNA 176 MG/5 ML ORAL SOL NG SCH (19:54)
[2020-11-09] MEDS ORDERED: METOPROLOL TARTRATE 25 MG TAB PO ONE (23:00)
[2020-11-10 00:42] VITALS: BP 141/95
[2020-11-10] MEDS: ACETAMINOPHEN 325 MG TABLET PO PRN (00:47)
[2020-11-10] MEDS: MEROPENEM 1 GM in SODIUM CHLORIDE 0.9% 100 ML IV SCH ×3 (03:51→19:56)
[2020-11-10 03:55] VITALS: BP 126/87
[2020-11-10 05:13] LABS: MEAN CORPUSCULAR HEMOGLOBIN 28.8 pg (27.5-34.5); MEAN CORPUSCULAR HGB CONC 34.1 g/dL (33.2-36.2); MEAN PLATELET VOLUME 9.2 fL (7.4-10.4); PLATELET COUNT 59 x10^3/uL (130-400); RED BLOOD COUNT 5.88 x10^6/uL (4.38-5.82); RED CELL DISTRIBUTION WIDTH 16.1 % (9.4-14.8)
[2020-11-10 05:25] LABS: ANION GAP 8 mmol/L (5-15); CALCIUM 8.2 mg/dL (8.5-10.1); CHLORIDE 107 mmol/L (98-107); CREATININE 0.79 mg/dL (0.7-1.3)
[2020-11-10 05:47] LABS: MD YES
[2020-11-10 05:54] LABS: BAND#(MANUAL) 1.41 x10^3/uL; BANDS%(MANUAL) 9 % (0-7); LYMPH#(MANUAL) 2.67 x10^3/uL (1-3.4); LYMPHS% (MANUAL) 17 % (22-44); MONOS#(MANUAL) 0.63 x10^3/uL (0.3-2.7); MONOS% (MANUAL) 4 % (2-9); SEG#(MANUAL) 10.99 x10^3/uL (1.8-6.8); SEGS% (MANUAL) 70 % (42-75)
[2020-11-10 05:55] LABS: ANISOCYTOSIS 1+
[2020-11-10 05:56] LABS: <PLATELET ESTIMATE> DECREASED; LARGE PLATELETS 1+; PMNS WITH VACUOLES 1+
[2020-11-10 07:39] VITALS: BP 137/89
[2020-11-10] MEDS ORDERED: LACTULOSE 20 GM/30 ML UDC PO PRN (09:00)
[2020-11-10] MEDS ORDERED: METOPROLOL SUCCINATE 25 MG TAB.ER.24H PO SCH (09:00)
[2020-11-10] MEDS ORDERED: BUTALB/APAP/CAFFEINE 50MG/325MG/40MG PO PRN (09:00)
[2020-11-10] MEDS: ASPIRIN 81 MG TABLET EC PO SCH (09:03)
[2020-11-10] MEDS: METOPROLOL SUCCINATE 25 MG TAB.ER.24H PO SCH (09:04)
[2020-11-10 12:45] VITALS: BP 149/99
[2020-11-10 19:09] VITALS: BP 117/77
[2020-11-10] MEDS: BISACODYL 10 MG SUPP PR SCH (19:50)
[2020-11-10] MEDS: ATORVASTATIN 40 MG TABLET PO SCH (19:56)
[2020-11-10] MEDS: SENNA 176 MG/5 ML ORAL SOL NG SCH (19:56)
[2020-11-10] MEDS: ENOXAPARIN 40 MG/0.4 ML SQ SCH (19:56)
[2020-11-11 03:59] VITALS: BP 118/74
[2020-11-11] MEDS: MEROPENEM 1 GM in SODIUM CHLORIDE 0.9% 100 ML IV SCH ×3 (04:22→19:44)
[2020-11-11 08:00] VITALS: BP 157/79
[2020-11-11] MEDS: ASPIRIN 81 MG TABLET EC PO SCH (09:09)
[2020-11-11] MEDS: METOPROLOL SUCCINATE 25 MG TAB.ER.24H PO SCH (09:09)
[2020-11-11 12:23] VITALS: BP 149/85
[2020-11-11 18:24] VITALS: BP 132/82
[2020-11-11] MEDS: SENNA 176 MG/5 ML ORAL SOL NG SCH (21:00)
[2020-11-11] MEDS: BISACODYL 10 MG SUPP PR SCH (21:00)
[2020-11-11] MEDS: ATORVASTATIN 40 MG TABLET PO SCH (22:11)
[2020-11-11] MEDS: ENOXAPARIN 40 MG/0.4 ML SQ SCH (22:12)
[2020-11-12 01:49] VITALS: BP 141/85
[2020-11-12] MEDS: MEROPENEM 1 GM in SODIUM CHLORIDE 0.9% 100 ML IV SCH (03:48)
[2020-11-12 07:35] VITALS: BP 153/82
[2020-11-12] MEDS ORDERED: LEVOFLOXACIN 750 MG TABLET PO ONE (09:00)
[2020-11-12] MEDS: ASPIRIN 81 MG TABLET EC PO SCH (09:59)
[2020-11-12] MEDS: METOPROLOL SUCCINATE 25 MG TAB.ER.24H PO SCH (09:59)
[2020-11-12 12:15] VITALS: BP 121/77
[2020-11-12 19:26] VITALS: BP 143/79
[2020-11-12] MEDS: BISACODYL 10 MG SUPP PR SCH (21:00)
[2020-11-12] MEDS: SENNA 176 MG/5 ML ORAL SOL NG SCH (21:00)
[2020-11-12] MEDS: ATORVASTATIN 40 MG TABLET PO SCH (21:53)
[2020-11-12] MEDS: ENOXAPARIN 40 MG/0.4 ML SQ SCH (21:54)
[2020-11-13 01:31] VITALS: BP 142/86
[2020-11-13 08:19] VITALS: BP 130/77
[2020-11-13] MEDS: ASPIRIN 81 MG TABLET EC PO SCH (09:49)
[2020-11-13] MEDS: METOPROLOL SUCCINATE 25 MG TAB.ER.24H PO SCH (09:49)
[2020-11-13 09:51] VITALS: BP 129/73
[2020-11-13] MEDS ORDERED: LEVO750T6 PO (11:33)
[2020-11-13 12:35] VITALS: BP 132/82
== END 2020-11-13 16:30 | disposition home or self-care (01) | DRG 710 ==
LOC: ED 23:13 → EDIP 11-07 01:12 → CCU 11-07 03:30 → 4NE 11-08 13:38
PROVIDERS: ADMIT Family Medicine; ATTEND Family Medicine
PROC: 0TCB8ZZ Extirpation of Matter from Bladder, Via Natural or Artificial Opening Endoscopic (ICD-10-PCS; 2020-11-07)
PROC: 0T778DZ Dilation of Left Ureter with Intraluminal Device, Via Natural or Artificial Opening Endoscopic (ICD-10-PCS; 2020-11-07)
PROC: 0T9B70Z Drainage of Bladder with Drainage Device, Via Natural or Artificial Opening (ICD-10-PCS; 2020-11-07)
PROC: 0TC18ZZ Extirpation of Matter from Left Kidney, Via Natural or Artificial Opening Endoscopic (ICD-10-PCS; principal; 2020-11-07 01:00)
DX: A41.51 Sepsis due to Escherichia coli [E. coli] (principal); N17.0 Acute kidney failure with tubular necrosis; J96.01 Acute respiratory failure with hypoxia; R65.21 Severe sepsis with septic shock; G06.1 Intraspinal abscess and granuloma; J43.9 Emphysema, unspecified; K86.89 Other specified diseases of pancreas; G82.20 Paraplegia, unspecified; E78.5 Hyperlipidemia, unspecified; F15.90 Other stimulant use, unspecified, uncomplicated; I10 Essential (primary) hypertension; I25.10 Atherosclerotic heart disease of native coronary artery without angina pectoris; Z20.822 Contact with and (suspected) exposure to COVID-19; Z95.5 Presence of coronary angioplasty implant and graft; Z89.512 Acquired absence of left leg below knee; Z86.19 Personal history of other infectious and parasitic diseases; N31.9 Neuromuscular dysfunction of bladder, unspecified; N13.6 Pyonephrosis; K56.41 Fecal impaction; J98.11 Atelectasis; F17.200 Nicotine dependence, unspecified, uncomplicated; I73.9 Peripheral vascular disease, unspecified; Z89.612 Acquired absence of left leg above knee
CPT/HCPCS: 36415; 36600; 62270; 71045; 74018; 74177; 76000; 76870; 80048; 80053; 80307; 81001; 82360; 82803; 83605; 83690; 83735; 84145; 84478; 84484; 85025; 87040; 87077; 87081; 87086; 87186; 87635; 88300; 93005; 94002; 94003; 94150; 96365; 96367; 96375; G0378; J0610; J0696; J1100; J1650; J2185; J2250; J2405; J2704; J3010; J3370; Q9967; C1769; C2617; C9113; J0330; J2270; J7030; J7050; J7120; Q0163

== ENCOUNTER 2020-11-27 23:29 | Inpatient (IN) | payer MEDICAID ==
[~2020-11-27] VITALS: Ht 177.8 cm; Wt 64.8 kg
[~2020-11-27 23:29] MED LIST changes: +LEVO750T6 PO
--- NOTE | 2020-11-27 23:57 | NUR ---
PT PRESENTS TO THE ED AFTER BEING UNABLE TO SELF CATH FOR 4 DAYS. PT STATES HIS SUPPLIES WERE STOLEN AT THE [facility]. PT STATES THAT WHEN HIS BLADDER GETS FULL HE JUST STARTS URINATING AND CAN'T STOP. PT CLEANED, CHANGED INTO GOWN AND HOOKED TO MONITORS. ERP AT BEDSIDE.
[2020-11-28] MEDS ORDERED: SODIUM CHLORIDE FLUSH 10ML SYR IVF ONE
[2020-11-28] MEDS ORDERED: LEVOFLOXACIN/PMX 750MG/150ML 150 ML IV ONE
[2020-11-28] MEDS ORDERED: LEVOFLOXACIN/PMX 750MG/150ML 150 ML ONE (00:03)
--- NOTE | 2020-11-28 00:20 | NUR ---
22 G IV TO RIGHT FA PLACE, 16 COUDE VARGAS PLACED WITH STANISLAW COELHO. BOTH BLOOD LABS AND UA COLLECTED. PT TOLERATED PROCEDURE WELL. ANTIBIOTICS AND IVF STARTED.
[2020-11-28 00:53] LABS: MEAN CORPUSCULAR HEMOGLOBIN 28.1 pg (27.5-34.5); MEAN CORPUSCULAR HGB CONC 34.3 g/dL (33.2-36.2); MEAN PLATELET VOLUME 7.8 fL (7.4-10.4); PLATELET COUNT 780 x10^3/uL (130-400); RED BLOOD COUNT 4.33 x10^6/uL (4.38-5.82); RED CELL DISTRIBUTION WIDTH 16.2 % (9.4-14.8)
[2020-11-28] MEDS ORDERED: SODIUM CHLORIDE 0.9% 1,000ML IVBOLUS ONE (01:00)
--- NOTE | 2020-11-28 01:01 | NUR ---
ANTIBIOTICS STOPPED PER ERP.
[2020-11-28 01:05] LABS: ALBUMIN 2.3 g/dL (3.4-5.0); ANION GAP 6 mmol/L (5-15); CALCIUM 8.3 mg/dL (8.5-10.1); CHLORIDE 103 mmol/L (98-107); CREATININE 1.03 mg/dL (0.7-1.3)
--- NOTE | 2020-11-28 01:15 | NUR ---
PT GIVEN FOOD, PT RESTING COMFORTABLY ON GURNEY, DENIES NEEDS AT THIS TIME.
[2020-11-28 01:22] LABS: MICROSCOPIC INDICATED
[2020-11-28] MEDS ORDERED: SODIUM CHLORIDE 0.9% 1,000 ML IV ONE ×2 (01:30)
[2020-11-28] MEDS ORDERED: SODIUM CHLORIDE FLUSH 10ML SYR IVF PRN (01:30)
[2020-11-28 01:43] LABS: BAND#(MANUAL) 0.27 x10^3/uL; BANDS%(MANUAL) 1 % (0-7); EOS#(MANUAL) 0.82 x10^3/uL (0.0-0.4); EOS% (MANUAL) 3 % (1-7); LYMPHS% (MANUAL) 15 % (22-44); MONOS#(MANUAL) 1.09 x10^3/uL (0.3-2.7); MONOS% (MANUAL) 4 % (2-9); SEG#(MANUAL) 21.02 x10^3/uL (1.8-6.8); SEGS% (MANUAL) 77 % (42-75)
[2020-11-28 01:45] LABS: <PLATELET ESTIMATE> INCREASED; <PLT MORPHOLOGY> NORMAL PLT MORPH; ANISOCYTOSIS 1+
--- NOTE | 2020-11-28 01:57 | NUR ---
BLOOD CULTURES GOTTEN, ANTIBIOTIC RESTARTED.
--- NOTE | 2020-11-28 01:57 | NUR ---
Pt to be admitted to MEDICAL, room 348. Report called to JEREMIAS.
[2020-11-28 02:30] VITALS: BP 127/77
[2020-11-28 03:13] VITALS: BP 127/77
[2020-11-28] MEDS ORDERED: ACETAMINOPHEN 325 MG TABLET PO PRN (04:30)
[2020-11-28] MEDS ORDERED: POLYETHYLENE GLYCOL 17 GM PACKET PO PRN (04:30)
[2020-11-28] MEDS ORDERED: ONDANSETRON 2MG/ML, 2ML IVPush PRN (04:30)
[2020-11-28] MEDS ORDERED: LABETALOL 5MG/ML, 20ML IVPush PRN (04:30)
[2020-11-28] MEDS ORDERED: OXYcodone IR 5MG TABLET PO PRN (04:30)
[2020-11-28] MEDS: LACTATED RINGERS 1,000 ML IV SCH ×2 (05:26→20:32)
[2020-11-28 06:58] VITALS: BP 165/87
[2020-11-28] MEDS: METOPROLOL SUCCINATE 25 MG TAB.ER.24H PO SCH (17:02)
[2020-11-28] MEDS: ENOXAPARIN 40 MG/0.4 ML SQ SCH (17:03)
[2020-11-28 17:17] VITALS: BP 159/95
[2020-11-28 20:09] VITALS: BP 112/72
[2020-11-28] MEDS: ATORVASTATIN 40 MG TABLET PO SCH (20:32)
[2020-11-29] MEDS: LEVOFLOXACIN/PMX 750MG/150ML 150 ML IV SCH (00:08)
[2020-11-29 00:16] VITALS: BP_SYST 129
[2020-11-29 00:58] VITALS: BP 124/77
[2020-11-29 05:35] LABS: MEAN CORPUSCULAR HEMOGLOBIN 27.8 pg (27.5-34.5); MEAN CORPUSCULAR HGB CONC 34.3 g/dL (33.2-36.2); MEAN PLATELET VOLUME 7.5 fL (7.4-10.4); PLATELET COUNT 774 x10^3/uL (130-400); RED BLOOD COUNT 3.95 x10^6/uL (4.38-5.82); RED CELL DISTRIBUTION WIDTH 16.1 % (9.4-14.8)
[2020-11-29 05:47] LABS: ANION GAP 5 mmol/L (5-15); CALCIUM 8.2 mg/dL (8.5-10.1); CHLORIDE 110 mmol/L (98-107); CREATININE 0.71 mg/dL (0.7-1.3)
[2020-11-29 06:11] LABS: BAND#(MANUAL) 0.22 x10^3/uL; BANDS%(MANUAL) 1 % (0-7); MONOS#(MANUAL) 0.65 x10^3/uL (0.3-2.7); MONOS% (MANUAL) 3 % (2-9)
[2020-11-29 06:13] LABS: EOS#(MANUAL) 0.86 x10^3/uL (0.0-0.4); EOS% (MANUAL) 4 % (1-7); LYMPH#(MANUAL) 2.59 x10^3/uL (1-3.4); LYMPHS% (MANUAL) 12 % (22-44); METAMYELOCYTES# (MANUAL) 0.22 x10^3/uL (0-0); METAMYELOCYTES% (MANUAL) 1 % (0-1)
[2020-11-29 06:14] LABS: REACTIVE LYMPHS # (MANUAL) 0.43 x10^3/uL (0-0); REACTIVE LYMPHS % (MANUAL) 2 % (0-0); SEGS% (MANUAL) 77 % (42-75)
[2020-11-29 06:16] LABS: <PLATELET ESTIMATE> INCREASED; <PLT MORPHOLOGY> NORMAL PLT MORPH; ANISOCYTOSIS 1+; POLYCHROMASIA 1+
[2020-11-29 07:04] VITALS: BP 120/78
[2020-11-29] MEDS ORDERED: POTASSIUM CHLORIDE 20 MEQ TAB.ER.PRT PO ONE (07:30)
[2020-11-29] MEDS: METOPROLOL SUCCINATE 25 MG TAB.ER.24H PO SCH (10:44)
[2020-11-29] MEDS: ASPIRIN 81 MG TABLET EC PO SCH (10:44)
[2020-11-29 13:22] VITALS: BP 143/71
[2020-11-29] MEDS ORDERED: BISACODYL 10 MG SUPP PR PRN (13:30)
[2020-11-29] MEDS: ENOXAPARIN 40 MG/0.4 ML SQ SCH (18:35)
[2020-11-29] MEDS: MULTIVITAMINS/MINERALS TABLET PO SCH (18:35)
[2020-11-29] MEDS: ASCORBIC ACID 500 MG TABLET PO SCH (18:35)
[2020-11-29 19:09] VITALS: BP 136/72
[2020-11-29] MEDS: ATORVASTATIN 40 MG TABLET PO SCH (19:44)
[2020-11-29 20:15] VITALS: BP 123/77
[2020-11-30 01:16] VITALS: BP 113/71
[2020-11-30] MEDS: LEVOFLOXACIN/PMX 750MG/150ML 150 ML IV SCH (02:17)
[2020-11-30 06:06] LABS: BASOPHILS % (AUTO) 1 % (0-1); EOSINOPHILS % (AUTO) 4 % (1-7); LYMPHOCYTES % (AUTO) 10 % (22-44); MEAN CORPUSCULAR HEMOGLOBIN 27.8 pg (27.5-34.5); MEAN CORPUSCULAR HGB CONC 33.5 g/dL (33.2-36.2); MEAN PLATELET VOLUME 7.5 fL (7.4-10.4); MONOCYTES % (AUTO) 5 % (2-9); NEUTROPHILS % (AUTO) 80 % (42-75); PLATELET COUNT 856 x10^3/uL (130-400); RED BLOOD COUNT 4.12 x10^6/uL (4.38-5.82); RED CELL DISTRIBUTION WIDTH 16.1 % (9.4-14.8)
[2020-11-30 06:12] LABS: ALBUMIN 2.1 g/dL (3.4-5.0); ANION GAP 8 mmol/L (5-15); CALCIUM 8.9 mg/dL (8.5-10.1); CHLORIDE 110 mmol/L (98-107)
[2020-11-30 06:14] LABS: ALANINE AMINOTRANSFERASE 15 U/L (12-78); ALKALINE PHOSPHATASE 103 U/L (45-117); BILIRUBIN,TOTAL 0.2 mg/dL (0.2-1.0); CREATININE 0.78 mg/dL (0.7-1.3); TOTAL PROTEIN 6.9 g/dL (6.4-8.2)
[2020-11-30] MEDS: ASCORBIC ACID 500 MG TABLET PO SCH ×2 (07:53→16:59)
[2020-11-30] MEDS: METOPROLOL SUCCINATE 25 MG TAB.ER.24H PO SCH (07:53)
[2020-11-30] MEDS: ASPIRIN 81 MG TABLET EC PO SCH (07:53)
[2020-11-30] MEDS: MULTIVITAMINS/MINERALS TABLET PO SCH (07:53)
[2020-11-30 08:15] VITALS: BP 113/71
[2020-11-30 14:00] VITALS: BP 121/75
[2020-11-30] MEDS: MEROPENEM 1 GM in SODIUM CHLORIDE 0.9% 100 ML IV SCH (16:51)
[2020-11-30] MEDS: ENOXAPARIN 40 MG/0.4 ML SQ SCH (17:00)
[2020-11-30 19:42] VITALS: BP 108/69
[2020-11-30] MEDS: ATORVASTATIN 40 MG TABLET PO SCH (20:43)
[2020-12-01 01:20] VITALS: BP 111/71
[2020-12-01] MEDS: MEROPENEM 1 GM in SODIUM CHLORIDE 0.9% 100 ML IV SCH ×3 (01:27→17:23)
[2020-12-01 06:20] LABS: MEAN CORPUSCULAR HEMOGLOBIN 27.9 pg (27.5-34.5); MEAN CORPUSCULAR HGB CONC 33.9 g/dL (33.2-36.2); MEAN PLATELET VOLUME 7.1 fL (7.4-10.4); PLATELET COUNT 944 x10^3/uL (130-400); RED BLOOD COUNT 4.14 x10^6/uL (4.38-5.82); RED CELL DISTRIBUTION WIDTH 16.2 % (9.4-14.8)
[2020-12-01 06:34] LABS: ANION GAP 6 mmol/L (5-15); CALCIUM 8.7 mg/dL (8.5-10.1); CHLORIDE 110 mmol/L (98-107); CREATININE 0.73 mg/dL (0.7-1.3)
[2020-12-01 07:02] LABS: <PLATELET ESTIMATE> INCREASED; <PLT MORPHOLOGY> NORMAL PLT MORPH; ANISOCYTOSIS 1+; EOS% (MANUAL) 2 % (1-7); LYMPH#(MANUAL) 2.02 x10^3/uL (1-3.4); LYMPHS% (MANUAL) 10 % (22-44); MONOS#(MANUAL) 1.41 x10^3/uL (0.3-2.7); MONOS% (MANUAL) 7 % (2-9); POLYCHROMASIA 1+; SEG#(MANUAL) 16.36 x10^3/uL (1.8-6.8); SEGS% (MANUAL) 81 % (42-75)
[2020-12-01 08:40] VITALS: BP 107/71
[2020-12-01] MEDS: ASCORBIC ACID 500 MG TABLET PO SCH ×3 (10:08→17:15)
[2020-12-01] MEDS: ASPIRIN 81 MG TABLET EC PO SCH (10:08)
[2020-12-01] MEDS: MULTIVITAMINS/MINERALS TABLET PO SCH ×2 (10:08→10:18)
[2020-12-01] MEDS: METOPROLOL SUCCINATE 25 MG TAB.ER.24H PO SCH (10:12)
[2020-12-01 13:06] VITALS: BP 123/79
[2020-12-01] MEDS: ENOXAPARIN 40 MG/0.4 ML SQ SCH (17:17)
[2020-12-01 18:56] VITALS: BP 117/78
[2020-12-01] MEDS: ATORVASTATIN 40 MG TABLET PO SCH (20:13)
[2020-12-02 00:27] VITALS: BP 112/76
[2020-12-02] MEDS: MEROPENEM 1 GM in SODIUM CHLORIDE 0.9% 100 ML IV SCH ×3 (01:31→17:44)
[2020-12-02 05:17] LABS: BASOPHILS % (AUTO) 1 % (0-1); EOSINOPHILS % (AUTO) 4 % (1-7); LYMPHOCYTES % (AUTO) 11 % (22-44); MEAN CORPUSCULAR HEMOGLOBIN 27.8 pg (27.5-34.5); MEAN CORPUSCULAR HGB CONC 33.6 g/dL (33.2-36.2); MEAN PLATELET VOLUME 7.8 fL (7.4-10.4); MONOCYTES % (AUTO) 5 % (2-9); NEUTROPHILS % (AUTO) 79 % (42-75); PLATELET COUNT 959 x10^3/uL (130-400); RED BLOOD COUNT 4.18 x10^6/uL (4.38-5.82); RED CELL DISTRIBUTION WIDTH 16.4 % (9.4-14.8)
[2020-12-02 05:22] LABS: ANION GAP 6 mmol/L (5-15); CALCIUM 8.7 mg/dL (8.5-10.1); CHLORIDE 109 mmol/L (98-107)
[2020-12-02 05:23] LABS: CREATININE 0.81 mg/dL (0.7-1.3)
[2020-12-02 07:23] VITALS: BP 122/76
[2020-12-02] MEDS: MULTIVITAMINS/MINERALS TABLET PO SCH (10:06)
[2020-12-02] MEDS: ASCORBIC ACID 500 MG TABLET PO SCH ×2 (10:07→17:45)
[2020-12-02] MEDS: METOPROLOL SUCCINATE 25 MG TAB.ER.24H PO SCH (10:07)
[2020-12-02] MEDS: ASPIRIN 81 MG TABLET EC PO SCH (10:08)
[2020-12-02 13:35] VITALS: BP 129/87
[2020-12-02] MEDS: ENOXAPARIN 40 MG/0.4 ML SQ SCH (17:44)
[2020-12-02 18:36] VITALS: BP 124/81
[2020-12-02] MEDS: ATORVASTATIN 40 MG TABLET PO SCH (20:24)
[2020-12-02] MEDS: MELATONIN 5 MG TABLET PO PRN (22:15)
[2020-12-03] MEDS: MEROPENEM 1 GM in SODIUM CHLORIDE 0.9% 100 ML IV SCH ×3 (01:06→18:13)
[2020-12-03 01:07] VITALS: BP 111/70
[2020-12-03 07:43] VITALS: BP 123/73
[2020-12-03] MEDS: ASCORBIC ACID 500 MG TABLET PO SCH ×2 (08:00→18:22)
[2020-12-03] MEDS: ASPIRIN 81 MG TABLET EC PO SCH (08:59)
[2020-12-03] MEDS: MULTIVITAMINS/MINERALS TABLET PO SCH (08:59)
[2020-12-03] MEDS: METOPROLOL SUCCINATE 25 MG TAB.ER.24H PO SCH (09:00)
[2020-12-03] MEDS: FLUCONAZOLE 200 MG TABLET PO SCH (12:24)
[2020-12-03 13:58] VITALS: BP 123/77
[2020-12-03] MEDS ORDERED: OMNIPAQUE 350 MG/ML, 50 ML BOTTLE ONE (15:35)
[2020-12-03] MEDS ORDERED: FENTANYL PF 100 MCG/2ML ONE (15:36)
[2020-12-03] MEDS ORDERED: CHLORHEXIDINE 15 ML UDC PO ONE (16:00)
[2020-12-03] MEDS ORDERED: OXYcodone 5 MG/5 ML ORAL.SOL UDC PO PRN (17:00)
[2020-12-03] MEDS: ENOXAPARIN 40 MG/0.4 ML SQ SCH (17:00)
[2020-12-03] MEDS ORDERED: ALBUTEROL SULFATE 2.5 MG/3 ML NPPB PRN (17:00)
[2020-12-03] MEDS ORDERED: FENTANYL PF 100 MCG/2ML IV PRN (17:00)
[2020-12-03] MEDS ORDERED: ACETAMINOPHEN 325 MG TABLET PO PRN (17:00)
[2020-12-03] MEDS ORDERED: LABETALOL 5MG/ML, 20ML IV PRN (17:00)
[2020-12-03] MEDS ORDERED: MIDAZOLAM 1 MG/ML, 2ML IV PRN (17:00)
[2020-12-03] MEDS ORDERED: MEPERIDINE/PF 25MG/0.5ML IVPush PRN (17:00)
[2020-12-03] MEDS ORDERED: PROMETHAZINE 25 MG/ML, 1ML IVPush PRN (17:00)
[2020-12-03] MEDS ORDERED: LIDOCAINE-MPF 2% ,5ML ONE (17:05)
[2020-12-03] MEDS ORDERED: DEXAMETHASONE 4 MG/ML, 1ML ONE (17:05)
[2020-12-03] MEDS ORDERED: ONDANSETRON 2MG/ML, 2ML ONE (17:05)
[2020-12-03] MEDS ORDERED: PROPOFOL 10 MG/ML, 20ML ONE (17:05)
[2020-12-03 18:49] VITALS: BP 158/86
[2020-12-03] MEDS: ATORVASTATIN 40 MG TABLET PO SCH (22:05)
[2020-12-04 00:49] VITALS: BP 113/54
[2020-12-04] MEDS: MEROPENEM 1 GM in SODIUM CHLORIDE 0.9% 100 ML IV SCH ×3 (02:03→17:18)
[2020-12-04 05:23] LABS: BASOPHILS % (AUTO) 0 % (0-1); EOSINOPHILS % (AUTO) 0 % (1-7); LYMPHOCYTES % (AUTO) 5 % (22-44); MEAN CORPUSCULAR HEMOGLOBIN 27.8 pg (27.5-34.5); MEAN CORPUSCULAR HGB CONC 33.5 g/dL (33.2-36.2); MONOCYTES % (AUTO) 2 % (2-9); NEUTROPHILS % (AUTO) 93 % (42-75); RED BLOOD COUNT 4.01 x10^6/uL (4.38-5.82); RED CELL DISTRIBUTION WIDTH 16.4 % (9.4-14.8)
[2020-12-04 05:25] LABS: PLATELET COUNT 1055 x10^3/uL (130-400)
[2020-12-04 05:34] LABS: CALCIUM 8.5 mg/dL (8.5-10.1); CHLORIDE 107 mmol/L (98-107)
[2020-12-04 05:38] LABS: ANION GAP 6 mmol/L (5-15); CREATININE 0.91 mg/dL (0.7-1.3)
[2020-12-04 07:55] VITALS: BP 115/64
[2020-12-04] MEDS: PHENAZOPYRIDINE 200 MG TABLET PO SCH ×3 (08:07→22:33)
[2020-12-04] MEDS: ASPIRIN 81 MG TABLET EC PO SCH (08:07)
[2020-12-04] MEDS: ASCORBIC ACID 500 MG TABLET PO SCH ×2 (08:07→16:32)
[2020-12-04] MEDS: MULTIVITAMINS/MINERALS TABLET PO SCH (08:07)
[2020-12-04] MEDS: METOPROLOL SUCCINATE 25 MG TAB.ER.24H PO SCH (08:08)
[2020-12-04] MEDS: FLUCONAZOLE 200 MG TABLET PO SCH (08:08)
[2020-12-04 14:39] VITALS: BP 115/68
[2020-12-04] MEDS: ENOXAPARIN 40 MG/0.4 ML SQ SCH (16:33)
[2020-12-04] MEDS: SODIUM CHLORIDE 0.9% 1,000 ML IV SCH (16:54)
[2020-12-04 18:27] VITALS: BP 138/68
[2020-12-04] MEDS: ATORVASTATIN 40 MG TABLET PO SCH (22:33)
[2020-12-04] MEDS: MELATONIN 5 MG TABLET PO PRN (22:42)
[2020-12-05 00:30] VITALS: BP 108/66
[2020-12-05] MEDS: MEROPENEM 1 GM in SODIUM CHLORIDE 0.9% 100 ML IV SCH ×3 (01:07→18:00)
[2020-12-05 05:38] LABS: BASOPHILS % (AUTO) 1 % (0-1); EOSINOPHILS % (AUTO) 1 % (1-7); LYMPHOCYTES % (AUTO) 12 % (22-44); MEAN CORPUSCULAR HEMOGLOBIN 27.8 pg (27.5-34.5); MEAN CORPUSCULAR HGB CONC 33.4 g/dL (33.2-36.2); MEAN PLATELET VOLUME 7.5 fL (7.4-10.4); MONOCYTES % (AUTO) 5 % (2-9); NEUTROPHILS % (AUTO) 81 % (42-75); RED BLOOD COUNT 3.86 x10^6/uL (4.38-5.82)
[2020-12-05 05:42] LABS: PLATELET COUNT 1032 x10^3/uL (130-400)
[2020-12-05] MEDS: ASCORBIC ACID 500 MG TABLET PO SCH ×2 (07:45→16:21)
[2020-12-05] MEDS: PHENAZOPYRIDINE 200 MG TABLET PO SCH ×3 (07:45→20:25)
[2020-12-05] MEDS: ASPIRIN 81 MG TABLET EC PO SCH (07:46)
[2020-12-05] MEDS: FLUCONAZOLE 200 MG TABLET PO SCH (07:46)
[2020-12-05] MEDS: METOPROLOL SUCCINATE 25 MG TAB.ER.24H PO SCH (07:46)
[2020-12-05] MEDS: MULTIVITAMINS/MINERALS TABLET PO SCH (07:48)
[2020-12-05 08:00] VITALS: BP 125/78
[2020-12-05 14:17] VITALS: BP 122/70
[2020-12-05] MEDS: SODIUM CHLORIDE 0.9% 1,000 ML IV SCH (14:31)
[2020-12-05] MEDS: ENOXAPARIN 40 MG/0.4 ML SQ SCH (16:21)
[2020-12-05 18:24] VITALS: BP 127/75
[2020-12-05] MEDS: ATORVASTATIN 40 MG TABLET PO SCH (20:25)
[2020-12-06 00:33] VITALS: BP 131/87
[2020-12-06] MEDS: MEROPENEM 1 GM in SODIUM CHLORIDE 0.9% 100 ML IV SCH ×3 (02:00→17:53)
[2020-12-06 06:09] LABS: MEAN CORPUSCULAR HEMOGLOBIN 27.8 pg (27.5-34.5); MEAN CORPUSCULAR HGB CONC 32.9 g/dL (33.2-36.2); MEAN PLATELET VOLUME 7.4 fL (7.4-10.4); RED BLOOD COUNT 4.16 x10^6/uL (4.38-5.82); RED CELL DISTRIBUTION WIDTH 17.1 % (9.4-14.8)
[2020-12-06 06:18] LABS: PLATELET COUNT 1155 x10^3/uL (130-400)
[2020-12-06 06:41] LABS: <PLATELET ESTIMATE> INCREASED; ANISOCYTOSIS 1+; BAND#(MANUAL) 0.16 x10^3/uL; BANDS%(MANUAL) 1 % (0-7); LYMPH#(MANUAL) 3.54 x10^3/uL (1-3.4); LYMPHS% (MANUAL) 22 % (22-44); METAMYELOCYTES# (MANUAL) 0.16 x10^3/uL (0-0); METAMYELOCYTES% (MANUAL) 1 % (0-1); MONOS#(MANUAL) 1.29 x10^3/uL (0.3-2.7); MONOS% (MANUAL) 8 % (2-9); SEG#(MANUAL) 10.95 x10^3/uL (1.8-6.8); SEGS% (MANUAL) 68 % (42-75)
[2020-12-06 06:42] LABS: <PLT MORPHOLOGY> NORMAL PLT MORPH
[2020-12-06 06:55] VITALS: BP 123/80
[2020-12-06] MEDS: SODIUM CHLORIDE 0.9% 1,000 ML IV SCH ×2 (07:00→23:33)
[2020-12-06] MEDS: MULTIVITAMINS/MINERALS TABLET PO SCH (09:43)
[2020-12-06] MEDS: ASPIRIN 81 MG TABLET EC PO SCH (09:43)
[2020-12-06] MEDS: FLUCONAZOLE 200 MG TABLET PO SCH (09:44)
[2020-12-06] MEDS: METOPROLOL SUCCINATE 25 MG TAB.ER.24H PO SCH (09:44)
[2020-12-06] MEDS: PHENAZOPYRIDINE 200 MG TABLET PO SCH ×3 (09:44→21:27)
[2020-12-06] MEDS: ASCORBIC ACID 500 MG TABLET PO SCH ×2 (09:44→16:28)
[2020-12-06 13:20] VITALS: BP 124/83
[2020-12-06] MEDS: FERROUS GLUCONATE 324 MG TABLET PO SCH (16:28)
[2020-12-06] MEDS: ENOXAPARIN 40 MG/0.4 ML SQ SCH (16:29)
[2020-12-06 19:43] VITALS: BP 123/76
[2020-12-06] MEDS: ATORVASTATIN 40 MG TABLET PO SCH (21:27)
[2020-12-07 00:27] VITALS: BP 118/77
[2020-12-07] MEDS: MEROPENEM 1 GM in SODIUM CHLORIDE 0.9% 100 ML IV SCH ×3 (02:38→18:20)
[2020-12-07 04:32] LABS: MEAN CORPUSCULAR HEMOGLOBIN 28.1 pg (27.5-34.5); MEAN CORPUSCULAR HGB CONC 33.5 g/dL (33.2-36.2); MEAN PLATELET VOLUME 7.1 fL (7.4-10.4); RED BLOOD COUNT 4.13 x10^6/uL (4.38-5.82); RED CELL DISTRIBUTION WIDTH 17.2 % (9.4-14.8)
[2020-12-07 04:34] LABS: PLATELET COUNT 1089 x10^3/uL (130-400)
[2020-12-07 04:52] LABS: <PLATELET ESTIMATE> INCREASED; <PLT MORPHOLOGY> NORMAL PLT MORPH; ANISOCYTOSIS 1+; BAND#(MANUAL) 0.15 x10^3/uL; BANDS%(MANUAL) 1 % (0-7); BASOS#(MANUAL) 0.15 x10^3/uL (0-0.1); BASOS% (MANUAL) 1 % (0-1); EOS% (MANUAL) 2 % (1-7); LYMPH#(MANUAL) 3.32 x10^3/uL (1-3.4); LYMPHS% (MANUAL) 22 % (22-44); MONOS#(MANUAL) 1.36 x10^3/uL (0.3-2.7); MONOS% (MANUAL) 9 % (2-9); MYELOCYTES% (MANUAL) 2 % (0-0); SEG#(MANUAL) 9.51 x10^3/uL (1.8-6.8); SEGS% (MANUAL) 63 % (42-75)
[2020-12-07 07:11] VITALS: BP 115/77
[2020-12-07] MEDS: FERROUS GLUCONATE 324 MG TABLET PO SCH ×2 (08:25→17:11)
[2020-12-07] MEDS: ASCORBIC ACID 500 MG TABLET PO SCH ×2 (08:25→17:11)
[2020-12-07] MEDS: ASPIRIN 81 MG TABLET EC PO SCH (08:39)
[2020-12-07] MEDS: PHENAZOPYRIDINE 200 MG TABLET PO SCH ×3 (08:39→21:10)
[2020-12-07] MEDS: METOPROLOL SUCCINATE 25 MG TAB.ER.24H PO SCH (08:39)
[2020-12-07] MEDS: MULTIVITAMINS/MINERALS TABLET PO SCH (08:39)
[2020-12-07] MEDS: FLUCONAZOLE 200 MG TABLET PO SCH (08:40)
[2020-12-07 13:44] VITALS: BP 126/82
[2020-12-07] MEDS: ENOXAPARIN 40 MG/0.4 ML SQ SCH (17:11)
[2020-12-07] MEDS: ATORVASTATIN 40 MG TABLET PO SCH (21:10)
[2020-12-07] MEDS: SODIUM CHLORIDE 0.9% 1,000 ML IV SCH (21:10)
[2020-12-07 21:16] VITALS: BP 118/73
[2020-12-08 02:14] VITALS: BP 111/74
[2020-12-08] MEDS: MEROPENEM 1 GM in SODIUM CHLORIDE 0.9% 100 ML IV SCH ×3 (02:20→17:12)
[2020-12-08 03:03] LABS: ANION GAP 5 mmol/L (5-15); CALCIUM 8.8 mg/dL (8.5-10.1); CHLORIDE 109 mmol/L (98-107)
[2020-12-08 03:06] LABS: MEAN CORPUSCULAR HEMOGLOBIN 28.5 pg (27.5-34.5); MEAN CORPUSCULAR HGB CONC 33.8 g/dL (33.2-36.2); MEAN PLATELET VOLUME 7.4 fL (7.4-10.4); RED CELL DISTRIBUTION WIDTH 17.5 % (9.4-14.8)
[2020-12-08 03:31] LABS: PLATELET COUNT 1058 x10^3/uL (130-400)
[2020-12-08 04:04] LABS: ANISOCYTOSIS 1+; BAND#(MANUAL) 0.15 x10^3/uL; BANDS%(MANUAL) 1 % (0-7); EOS% (MANUAL) 2 % (1-7); LYMPH#(MANUAL) 3.34 x10^3/uL (1-3.4); LYMPHS% (MANUAL) 22 % (22-44); MONOS#(MANUAL) 0.91 x10^3/uL (0.3-2.7); MONOS% (MANUAL) 6 % (2-9); MYELOCYTES# (MANUAL) 0.15 x10^3/uL (0-0); MYELOCYTES% (MANUAL) 1 % (0-0); POLYCHROMASIA 1+; REACTIVE LYMPHS % (MANUAL) 2 % (0-0); SEGS% (MANUAL) 66 % (42-75)
[2020-12-08 04:05] LABS: <PLATELET ESTIMATE> INCREASED; <PLT MORPHOLOGY> NORMAL PLT MORPH
[2020-12-08] MEDS: MULTIVITAMINS/MINERALS TABLET PO SCH (08:37)
[2020-12-08] MEDS: FERROUS GLUCONATE 324 MG TABLET PO SCH ×2 (08:37→17:11)
[2020-12-08] MEDS: ASCORBIC ACID 500 MG TABLET PO SCH ×2 (08:37→17:11)
[2020-12-08] MEDS: ASPIRIN 81 MG TABLET EC PO SCH (08:37)
[2020-12-08] MEDS: PHENAZOPYRIDINE 200 MG TABLET PO SCH ×3 (08:37→21:41)
[2020-12-08] MEDS: FLUCONAZOLE 200 MG TABLET PO SCH (08:38)
[2020-12-08] MEDS: SODIUM CHLORIDE 0.9% 1,000 ML IV SCH (08:41)
[2020-12-08] MEDS: METOPROLOL SUCCINATE 25 MG TAB.ER.24H PO SCH (08:41)
[2020-12-08 09:13] VITALS: BP 128/76
[2020-12-08 14:06] VITALS: BP 114/71
[2020-12-08] MEDS: ENOXAPARIN 40 MG/0.4 ML SQ SCH (17:11)
[2020-12-08 18:38] VITALS: BP 132/77
[2020-12-08] MEDS: ATORVASTATIN 40 MG TABLET PO SCH (21:41)
[2020-12-09 00:54] VITALS: BP 132/84
[2020-12-09] MEDS: MEROPENEM 1 GM in SODIUM CHLORIDE 0.9% 100 ML IV SCH ×3 (02:22→17:16)
[2020-12-09] MEDS: SODIUM CHLORIDE 0.9% 1,000 ML IV SCH (06:02)
[2020-12-09 06:17] LABS: HCT (SEDRATE) 34.6 % (39.2-51.8)
[2020-12-09 06:19] LABS: MEAN CORPUSCULAR HEMOGLOBIN 28.2 pg (27.5-34.5); MEAN CORPUSCULAR HGB CONC 33.2 g/dL (33.2-36.2); MEAN PLATELET VOLUME 7.4 fL (7.4-10.4); PLATELET COUNT 991 x10^3/uL (130-400); RED BLOOD COUNT 4.04 x10^6/uL (4.38-5.82); RED CELL DISTRIBUTION WIDTH 17.8 % (9.4-14.8)
[2020-12-09 06:30] LABS: ALANINE AMINOTRANSFERASE 34 U/L (12-78); ALBUMIN 2.6 g/dL (3.4-5.0); ANION GAP 6 mmol/L (5-15); CALCIUM 8.5 mg/dL (8.5-10.1); CHLORIDE 108 mmol/L (98-107); CREATININE 0.69 mg/dL (0.7-1.3)
[2020-12-09 06:33] LABS: ALKALINE PHOSPHATASE 149 U/L (45-117); BILIRUBIN,TOTAL 0.4 mg/dL (0.2-1.0); TOTAL PROTEIN 7.4 g/dL (6.4-8.2)
[2020-12-09 06:49] LABS: BAND#(MANUAL) 0.15 x10^3/uL; BANDS%(MANUAL) 1 % (0-7); EOS#(MANUAL) 0.91 x10^3/uL (0.0-0.4); EOS% (MANUAL) 6 % (1-7); LYMPH#(MANUAL) 2.27 x10^3/uL (1-3.4); LYMPHS% (MANUAL) 15 % (22-44); MONOS#(MANUAL) 0.76 x10^3/uL (0.3-2.7); MONOS% (MANUAL) 5 % (2-9); MYELOCYTES# (MANUAL) 0.15 x10^3/uL (0-0); MYELOCYTES% (MANUAL) 1 % (0-0); SEG#(MANUAL) 10.87 x10^3/uL (1.8-6.8); SEGS% (MANUAL) 72 % (42-75)
[2020-12-09 06:50] LABS: <PLATELET ESTIMATE> INCREASED; <PLT MORPHOLOGY> NORMAL PLT MORPH; POLYCHROMASIA 1+
[2020-12-09 07:41] VITALS: BP 131/83
[2020-12-09] MEDS: FERROUS GLUCONATE 324 MG TABLET PO SCH ×2 (09:18→17:16)
[2020-12-09] MEDS: FLUCONAZOLE 200 MG TABLET PO SCH (09:18)
[2020-12-09] MEDS: ASPIRIN 81 MG TABLET EC PO SCH (09:18)
[2020-12-09] MEDS: PHENAZOPYRIDINE 200 MG TABLET PO SCH ×3 (09:18→20:02)
[2020-12-09] MEDS: METOPROLOL SUCCINATE 25 MG TAB.ER.24H PO SCH (09:18)
[2020-12-09] MEDS: MULTIVITAMINS/MINERALS TABLET PO SCH (09:18)
[2020-12-09] MEDS: ASCORBIC ACID 500 MG TABLET PO SCH ×2 (09:18→17:16)
[2020-12-09] MEDS ORDERED: OMNIPAQUE 350 MG/ML, 100ML BOTTLE ONE (11:08)
[2020-12-09 12:24] VITALS: BP 128/90
[2020-12-09] MEDS: ENOXAPARIN 40 MG/0.4 ML SQ SCH (17:16)
[2020-12-09 18:57] VITALS: BP 120/76
[2020-12-09] MEDS: ATORVASTATIN 40 MG TABLET PO SCH (20:02)
[2020-12-10 01:12] VITALS: BP 116/77
[2020-12-10] MEDS: MEROPENEM 1 GM in SODIUM CHLORIDE 0.9% 100 ML IV SCH (02:12)
[2020-12-10 05:48] LABS: BASOPHILS % (AUTO) 1 % (0-1); EOSINOPHILS % (AUTO) 5 % (1-7); LYMPHOCYTES % (AUTO) 18 % (22-44); MEAN CORPUSCULAR HEMOGLOBIN 28.4 pg (27.5-34.5); MEAN CORPUSCULAR HGB CONC 33.5 g/dL (33.2-36.2); MEAN PLATELET VOLUME 7.6 fL (7.4-10.4); MONOCYTES % (AUTO) 6 % (2-9); NEUTROPHILS % (AUTO) 70 % (42-75); PLATELET COUNT 953 x10^3/uL (130-400); RED BLOOD COUNT 4.15 x10^6/uL (4.38-5.82); RED CELL DISTRIBUTION WIDTH 18.5 % (9.4-14.8)
[2020-12-10 08:09] VITALS: BP 137/87
[2020-12-10] MEDS ORDERED: SENNA/DOCUSATE TABLET PO SCH (09:00)
== END 2020-12-10 09:29 | disposition left against medical advice (07) | DRG 446 ==
LOC: ED 23:39 → EDIP 11-28 01:14 → 3N 11-28 02:04
PROVIDERS: ADMIT Family Medicine; ATTEND Internal Medicine
PROC: 0T9B70Z Drainage of Bladder with Drainage Device, Via Natural or Artificial Opening (ICD-10-PCS; 2020-11-28)
PROC: 0TP98DZ Removal of Intraluminal Device from Ureter, Via Natural or Artificial Opening Endoscopic (ICD-10-PCS; 2020-12-03)
PROC: 0TC78ZZ Extirpation of Matter from Left Ureter, Via Natural or Artificial Opening Endoscopic (ICD-10-PCS; principal; 2020-12-03 15:00)
PROC: 02HV33Z Insertion of Infusion Device into Superior Vena Cava, Percutaneous Approach (ICD-10-PCS; 2020-12-04)
PROC: B5181ZA Fluoroscopy of Superior Vena Cava using Low Osmolar Contrast, Guidance (ICD-10-PCS; 2020-12-04)
PROC: B548ZZA Ultrasonography of Superior Vena Cava, Guidance (ICD-10-PCS; 2020-12-04)
DX: T83.592A Infection and inflammatory reaction due to indwelling ureteral stent, initial encounter (principal); A41.9 Sepsis, unspecified organism; E43 Unspecified severe protein-calorie malnutrition; L89.159 Pressure ulcer of sacral region, unspecified stage; L89.300 Pressure ulcer of unspecified buttock, unstageable; Z20.822 Contact with and (suspected) exposure to COVID-19; T83.9XXA Unspecified complication of genitourinary prosthetic device, implant and graft, initial encounter; D69.6 Thrombocytopenia, unspecified; G82.20 Paraplegia, unspecified; N31.9 Neuromuscular dysfunction of bladder, unspecified; L89.613 Pressure ulcer of right heel, stage 3; N13.6 Pyonephrosis; B96.20 Unspecified Escherichia coli [E. coli] as the cause of diseases classified elsewhere; E78.5 Hyperlipidemia, unspecified; F12.90 Cannabis use, unspecified, uncomplicated; F17.210 Nicotine dependence, cigarettes, uncomplicated; I10 Essential (primary) hypertension; I25.10 Atherosclerotic heart disease of native coronary artery without angina pectoris; I73.9 Peripheral vascular disease, unspecified; J44.9 Chronic obstructive pulmonary disease, unspecified; K59.00 Constipation, unspecified; R62.7 Adult failure to thrive; Y83.1 Surgical operation with implant of artificial internal device as the cause of abnormal reaction of the patient, or of later complication, without mention of misadventure at the time of the procedure; Z16.12 Extended spectrum beta lactamase (ESBL) resistance; Z16.23 Resistance to quinolones and fluoroquinolones; Z59.0 Homelessness; Z86.14 Personal history of Methicillin resistant Staphylococcus aureus infection; Z86.73 Personal history of transient ischemic attack (TIA), and cerebral infarction without residual deficits; Z87.440 Personal history of urinary (tract) infections; Z87.442 Personal history of urinary calculi; Z89.612 Acquired absence of left leg above knee; Z99.3 Dependence on wheelchair
CPT/HCPCS: 36415; 74018; 76000; 84145; 87106; 99285; J3490; 36573; 74176; 74178; 76705; 76770; 80048; 80053; 81001; 82040; 82360; 82728; 83540; 83550; 83605; 83735; 84100; 85025; 85651; 86140; 87040; 87077; 87086; 87184; 87186; 88300; G0378; J1100; J1650; J1956; J2185; J2405; J2704; J3010; Q9967; U0005; C1751; C1769; J7030; J7120; U0003

== ENCOUNTER 2020-12-16 01:26 | Emergency (ER) | payer MEDICAID ==
[~2020-12-16] VITALS: Ht 177.8 cm; Wt 70.0 kg
[~2020-12-16 01:26] MED LIST changes: +POTA-143 PO; -POTA20TA6 PO
--- NOTE | 2020-12-16 02:04 | NUR ---
PT C/O OF LEFT HIP AND RIGHT GLUTEAL FOLD WOUND. PT HAS AMPUTATED LEFT LEG. PT CAME IN SOILED IN URINE AND FECES. PT ASKED TO HAVE SOILED PANTS THROW AWAY AND STATES HE HAS SHORTS TO CHANGE INTO. PT ATTACHED TO MONITORS. VSS. DC. WCTM
--- NOTE | 2020-12-16 02:22 | NUR ---
PT WHEELCHAIRED TO BATHROOM. PT HAD BM. AWAITING TO TAKE PT TO SHOWER.
--- NOTE | 2020-12-16 02:29 | NUR ---
PT USING SHOWER. WATER TEMP ADJUSTED TO LIKING. PT USING PERSONAL SOAP AND SHAMPOO THAT HE PREFERS. NADN. AIR MATRESS ON SEAT FOR COMFORTABILITY. WCTM
--- NOTE | 2020-12-16 02:53 | NUR ---
PT WHEELCHAIRED BACK INTO ROOM. TRANSFERRED TO BED AND TOLERATED WELL. GIVEN BLANKETS AND A PILL FOR COMFORT. ATTACHED TO MONIOTORS, VSS. NADN. BED IN LOW POSITION. RAILS ENGAGED. CALL LIGHT ON LAP.
--- NOTE | 2020-12-16 03:55 | NUR ---
Patient is resting comfortably in bed. brought pt turkey with cheese sandwich and sunchips and diet soda. Bed in lowest, rails engaged, call light on lap. Vital Signs within normal limits. WCTM.
--- NOTE | 2020-12-16 04:20 | NUR ---
pt given straight catheter kit to self cath.
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
[2020-12-16 04:48] VITALS: BP 151/77
== END 2020-12-16 04:50 | disposition home or self-care (01) ==
LOC: ED 04:47
DX: L89.323 Pressure ulcer of left buttock, stage 3 (principal); L89.313 Pressure ulcer of right buttock, stage 3; L89.213 Pressure ulcer of right hip, stage 3; G82.20 Paraplegia, unspecified; Z72.9 Problem related to lifestyle, unspecified; I10 Essential (primary) hypertension; I25.10 Atherosclerotic heart disease of native coronary artery without angina pectoris; J44.9 Chronic obstructive pulmonary disease, unspecified; F17.200 Nicotine dependence, unspecified, uncomplicated
CPT/HCPCS: 99282

== ENCOUNTER 2020-12-26 16:37 | Emergency (ER) | payer MEDICAID ==
[~2020-12-26] VITALS: Ht 180.3 cm; Wt 70.0 kg
[~2020-12-26 16:37] MED LIST changes: -POTA-143 PO; +POTA20TA6 PO
--- NOTE | 2020-12-26 16:56 | NUR ---
PT ASSISTED INTO GOWN. ISO CART AT DOORWAY FOR HX OF MRSA AND ESBL. PT WITH OPEN WOUNDS TO BILATERAL BUTTOCK WITH L EXTENDING INTO POSTERIOR THIGH. WHILE ASSESSING, PT URINATED ONTO BED AND PT REPORTS INCONTINENCE R/T PARAPLEGIA. CHUX PADS IN PLACE. CALL LIGHT WITHIN REACH. WARM BLANKET PROVIDED.
--- NOTE | 2020-12-26 17:20 | NUR ---
ERP IN TO SEE PT.
[2020-12-26 17:54] LABS: BASOPHILS % (AUTO) 1 % (0-1); EOSINOPHILS % (AUTO) 2 % (1-7); LYMPHOCYTES % (AUTO) 9 % (22-44); MEAN CORPUSCULAR HEMOGLOBIN 28.2 pg (27.5-34.5); MEAN CORPUSCULAR HGB CONC 33.1 g/dL (33.2-36.2); MONOCYTES % (AUTO) 8 % (2-9); NEUTROPHILS % (AUTO) 81 % (42-75); PLATELET COUNT 630 x10^3/uL (130-400); RED BLOOD COUNT 4.04 x10^6/uL (4.38-5.82); RED CELL DISTRIBUTION WIDTH 17.7 % (9.4-14.8)
[2020-12-26 18:05] LABS: ALBUMIN 2.5 g/dL (3.4-5.0); ANION GAP 4 mmol/L (5-15); CALCIUM 8.5 mg/dL (8.5-10.1); CHLORIDE 104 mmol/L (98-107)
[2020-12-26 18:06] LABS: CREATININE 0.83 mg/dL (0.7-1.3)
--- NOTE | 2020-12-26 18:32 | NUR ---
PT GIVEN SUPPLIES FOR CATHETER. PT ST CATH'D FOR SPECIMEN/SENT TO LAB. CALL LIGHT WITHIN REACH.
--- NOTE | 2020-12-26 18:40 | NUR ---
REPORTED TO DR MATHEW, PT SELF CATHS REGULARLY AND HAD RUN OUT OF SUPPLIES. PT ABLE TO ST CATH EFFECTIVELY. PER DR MATHEW, NO NEED FOR VARGAS. ALSO VERIFIED OKAY FOR PT TO EAT AND MEAL TRAY ORDERED.
[2020-12-26 18:45] LABS: MICROSCOPIC INDICATED
--- NOTE | 2020-12-26 19:14 | NUR ---
REPORT TO PRITESH, TRANSFER OF CARE AT THIS TIME.
[2020-12-26] MEDS ORDERED: CEFDINIR 300 MG CAPSULE PO ONE (20:00)
--- NOTE | 2020-12-26 20:02 | NUR ---
AT . PT DOES NOT WANT TO STAY FOR ADMISSION FOR ABX. PLAN TO GIVEN ORAL ABX & DINNER TRAY & DC HOME. PT SELF CATHS, NEEDS A KIT & NEW CUSHION FOR WHEELCHAIR & DRESSINGS FOR WOUNDS TO B/L GLUTES.
[2020-12-26] MEDS ORDERED: CEFDINIR 300 MG CAPSULE ONE (20:05)
[2020-12-26 20:16] VITALS: BP 150/82
== END 2020-12-26 21:36 | disposition home or self-care (01) ==
LOC: ED 19:41
DX: L89.213 Pressure ulcer of right hip, stage 3 (principal); L89.313 Pressure ulcer of right buttock, stage 3; L89.323 Pressure ulcer of left buttock, stage 3; N30.00 Acute cystitis without hematuria; I10 Essential (primary) hypertension; J44.9 Chronic obstructive pulmonary disease, unspecified; F17.210 Nicotine dependence, cigarettes, uncomplicated; E78.5 Hyperlipidemia, unspecified; I25.10 Atherosclerotic heart disease of native coronary artery without angina pectoris; Z98.61 Coronary angioplasty status
CPT/HCPCS: 36415; 80048; 81001; 82040; 85025; 87077; 87086; 87184; 87186; 99283; 99406

== ENCOUNTER 2021-01-08 12:50 | Inpatient (IN) | payer MEDICAID ==
[~2021-01-08] VITALS: Ht 177.8 cm; Wt 62.3 kg
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
[2021-01-08] MEDS ORDERED: SODIUM CHLORIDE 0.9% 1,000ML IVBOLUS ONE ×2 (13:30→15:00)
--- NOTE | 2021-01-08 13:30 | NUR ---
CONTACT PRECAUTIONS PLACED WITH HX OF MRSA
--- NOTE | 2021-01-08 13:35 | NUR ---
bladder scan 115
--- NOTE | 2021-01-08 14:04 | NUR ---
TASK RN: STRAIGHT CATH URINE OBTAINED W/ ASSISTANCE FROM PT, SENT TO LAB. PIV STARTED, 1L NS BOLUS STARTED PER EMAR.
[2021-01-08 14:12] LABS: MICROSCOPIC INDICATED
[2021-01-08 14:13] LABS: ALBUMIN 2.5 g/dL (3.4-5.0); ANION GAP 5 mmol/L (5-15); CALCIUM 8.6 mg/dL (8.5-10.1); CHLORIDE 112 mmol/L (98-107); CREATININE 1.06 mg/dL (0.7-1.3)
--- NOTE | 2021-01-08 14:19 | NUR ---
labs reviewed. erp asked for ivf for lactic/abx for nitrit ua. erp considering. with reassessment vss/ placed on waffle mattress. will continue to monitor
[2021-01-08] MEDS ORDERED: CEFTRIAXONE 1,000 MG in DEXTROSE 5% 50 ML IVPB ONE (15:00)
--- NOTE | 2021-01-08 16:05 | NUR ---
TASK RN, PT PLACED ON WAFFLE MATTRESS, PT STATES "IT'S SOFTER NOW". BED CHANGE ALSO DONE DUE TO PT HAVING BM.
[2021-01-08 16:28] LABS: BASOPHILS % (AUTO) 1 % (0-1); EOSINOPHILS % (AUTO) 2 % (1-7); LYMPHOCYTES % (AUTO) 15 % (22-44); MEAN CORPUSCULAR HEMOGLOBIN 27.7 pg (27.5-34.5); MEAN CORPUSCULAR HGB CONC 32.6 g/dL (33.2-36.2); MONOCYTES % (AUTO) 8 % (2-9); NEUTROPHILS % (AUTO) 73 % (42-75); PLATELET COUNT 677 x10^3/uL (130-400); RED BLOOD COUNT 4.12 x10^6/uL (4.38-5.82); RED CELL DISTRIBUTION WIDTH 17.4 % (9.4-14.8)
--- NOTE | 2021-01-08 17:26 | NUR ---
TASK RN: PT. RESTING ON GURNEY ON WAFFLE MATTRESS WITH EYES CLOSED. NO DISTRESS NOTED.
[2021-01-08] MEDS ORDERED: ONDANSETRON ODT 4 MG PO PRN (18:30)
[2021-01-08] MEDS ORDERED: BISACODYL 10 MG SUPP PR PRN (18:30)
[2021-01-08] MEDS ORDERED: POLYETHYLENE GLYCOL 17 GM PACKET PO PRN (18:30)
--- NOTE | 2021-01-08 18:46 | NUR ---
full bed changed. bilateral gluteal pressure ulcers cleansed with wound cleanser then non stick sacral dressings placed provided with dinner and updated on estimated poc (floor admit sometime after 7pm)
--- NOTE | 2021-01-08 18:58 | NUR ---
RECEIVED REPORT FROM STANISLAW VERDUGO
--- NOTE | 2021-01-08 19:00 | NUR ---
REPORT TO JUSTIN DOVER
--- NOTE | 2021-01-08 20:00 | NUR ---
pt resting on gurney, denies needs at this time.
--- NOTE | 2021-01-08 21:06 | NUR ---
INFORMED PT, WE ARE STILL WAITING ON BED UPSTAIRS, PT RESTING ON GURNEY, DENIES NEEDS AT THIS TIME.
[2021-01-08] MEDS ORDERED: ATORVASTATIN 40 MG TABLET ONE (22:00)
[2021-01-08] MEDS ORDERED: HEPARIN 5,000 UNITS/ML, 1ML ONE (22:00)
[2021-01-08] MEDS ORDERED: NS + 20MEQ KCL 1,000 ML IV ONE (22:00)
[2021-01-08] MEDS: MEROPENEM 1 GM in SODIUM CHLORIDE 0.9% 100 ML IV SCH (22:05)
[2021-01-08] MEDS: ATORVASTATIN 40 MG TABLET PO SCH (22:06)
[2021-01-08] MEDS: HEPARIN 5,000 UNITS/ML, 1ML SQ SCH (22:06)
--- NOTE | 2021-01-08 22:14 | NUR ---
Pt to be admitted to NEURO TELE, room 410. Report called to STANISLAW YOUNG.
[2021-01-08 22:45] VITALS: BP 155/91
[2021-01-08] MEDS: NS + 20MEQ KCL 1,000 ML IV SCH (23:11)
[2021-01-09 01:25] VITALS: BP 162/90
[2021-01-09 04:41] LABS: BASOPHILS % (AUTO) 1 % (0-1); EOSINOPHILS % (AUTO) 3 % (1-7); LYMPHOCYTES % (AUTO) 20 % (22-44); MEAN CORPUSCULAR HEMOGLOBIN 28.1 pg (27.5-34.5); MEAN CORPUSCULAR HGB CONC 33.4 g/dL (33.2-36.2); MEAN PLATELET VOLUME 6.6 fL (7.4-10.4); MONOCYTES % (AUTO) 7 % (2-9); NEUTROPHILS % (AUTO) 69 % (42-75); PLATELET COUNT 559 x10^3/uL (130-400); RED BLOOD COUNT 4.29 x10^6/uL (4.38-5.82); RED CELL DISTRIBUTION WIDTH 17.8 % (9.4-14.8)
[2021-01-09 04:53] LABS: ANION GAP 4 mmol/L (5-15); CALCIUM 8.4 mg/dL (8.5-10.1); CHLORIDE 112 mmol/L (98-107)
[2021-01-09 04:54] LABS: CREATININE 0.76 mg/dL (0.7-1.3)
[2021-01-09] MEDS: MEROPENEM 1 GM in SODIUM CHLORIDE 0.9% 100 ML IV SCH ×3 (06:06→22:22)
[2021-01-09] MEDS: HEPARIN 5,000 UNITS/ML, 1ML SQ SCH ×3 (06:13→22:22)
[2021-01-09] MEDS: ASPIRIN 81 MG TABLET EC PO SCH (08:21)
[2021-01-09] MEDS: NS + 20MEQ KCL 1,000 ML IV SCH ×2 (08:22→20:32)
[2021-01-09 08:41] VITALS: BP 169/91
[2021-01-09] MEDS ORDERED: METOPROLOL SUCCINATE 25 MG TAB.ER.24H PO SCH (09:00)
[2021-01-09] MEDS: SENNA/DOCUSATE TABLET PO SCH (09:48)
[2021-01-09 14:56] VITALS: BP 158/88
[2021-01-09 20:07] VITALS: BP 165/85
[2021-01-09] MEDS: ATORVASTATIN 40 MG TABLET PO SCH (20:32)
[2021-01-09] MEDS: ACETAMINOPHEN 325 MG TABLET PO PRN (22:37)
[2021-01-10 02:08] VITALS: BP 140/81
[2021-01-10] MEDS: MEROPENEM 1 GM in SODIUM CHLORIDE 0.9% 100 ML IV SCH ×3 (05:31→22:10)
[2021-01-10] MEDS: NS + 20MEQ KCL 1,000 ML IV SCH (05:31)
[2021-01-10] MEDS: HEPARIN 5,000 UNITS/ML, 1ML SQ SCH ×3 (05:32→21:09)
[2021-01-10 07:28] VITALS: BP 143/84
[2021-01-10] MEDS: ASPIRIN 81 MG TABLET EC PO SCH (08:50)
[2021-01-10] MEDS: SENNA/DOCUSATE TABLET PO SCH (08:51)
[2021-01-10] MEDS: METOPROLOL SUCCINATE 50 MG TAB.ER.24H PO SCH (08:51)
[2021-01-10 12:06] VITALS: BP 147/86
[2021-01-10 20:02] VITALS: BP 114/74
[2021-01-10] MEDS: ATORVASTATIN 40 MG TABLET PO SCH (21:09)
[2021-01-11] MEDS: ACETAMINOPHEN 325 MG TABLET PO PRN ×2 (00:29→08:15)
[2021-01-11 00:33] VITALS: BP 164/95
[2021-01-11 02:42] VITALS: BP 121/72
[2021-01-11] MEDS: MEROPENEM 1 GM in SODIUM CHLORIDE 0.9% 100 ML IV SCH ×3 (05:52→21:34)
[2021-01-11] MEDS: HEPARIN 5,000 UNITS/ML, 1ML SQ SCH ×3 (05:52→21:34)
[2021-01-11 07:45] VITALS: BP 122/82
[2021-01-11] MEDS: METOPROLOL SUCCINATE 50 MG TAB.ER.24H PO SCH (07:47)
[2021-01-11] MEDS: ASPIRIN 81 MG TABLET EC PO SCH (07:47)
[2021-01-11] MEDS: SENNA/DOCUSATE TABLET PO SCH (08:15)
[2021-01-11 12:07] VITALS: BP 116/69
[2021-01-11 20:01] VITALS: BP 116/70
[2021-01-11] MEDS: ATORVASTATIN 40 MG TABLET PO SCH (21:34)
[2021-01-12 03:56] VITALS: BP 110/72
[2021-01-12] MEDS: MEROPENEM 1 GM in SODIUM CHLORIDE 0.9% 100 ML IV SCH ×3 (06:07→21:30)
[2021-01-12] MEDS: HEPARIN 5,000 UNITS/ML, 1ML SQ SCH ×3 (06:07→21:30)
[2021-01-12 08:10] VITALS: BP 126/86
[2021-01-12] MEDS: METOPROLOL SUCCINATE 50 MG TAB.ER.24H PO SCH (08:52)
[2021-01-12] MEDS: ASPIRIN 81 MG TABLET EC PO SCH (08:52)
[2021-01-12] MEDS: SENNA/DOCUSATE TABLET PO SCH (08:52)
[2021-01-12] MEDS: ACETAMINOPHEN 325 MG TABLET PO PRN ×2 (13:48→21:30)
[2021-01-12 15:08] VITALS: BP 108/69
[2021-01-12 19:19] VITALS: BP 109/69
[2021-01-12] MEDS: ATORVASTATIN 40 MG TABLET PO SCH (21:30)
[2021-01-13 01:05] VITALS: BP 112/71
[2021-01-13] MEDS: MEROPENEM 1 GM in SODIUM CHLORIDE 0.9% 100 ML IV SCH ×3 (05:57→21:24)
[2021-01-13] MEDS: HEPARIN 5,000 UNITS/ML, 1ML SQ SCH ×3 (06:09→21:29)
[2021-01-13 07:48] VITALS: BP 110/70
[2021-01-13] MEDS: SENNA/DOCUSATE TABLET PO SCH (08:59)
[2021-01-13] MEDS: ASPIRIN 81 MG TABLET EC PO SCH (09:09)
[2021-01-13] MEDS: METOPROLOL SUCCINATE 50 MG TAB.ER.24H PO SCH (09:10)
[2021-01-13 12:12] VITALS: BP 119/66
[2021-01-13 20:00] VITALS: BP 132/68
[2021-01-13] MEDS: ATORVASTATIN 40 MG TABLET PO SCH (21:24)
[2021-01-14 02:00] VITALS: BP 115/68
[2021-01-14] MEDS: HEPARIN 5,000 UNITS/ML, 1ML SQ SCH ×3 (05:53→21:11)
[2021-01-14] MEDS: MEROPENEM 1 GM in SODIUM CHLORIDE 0.9% 100 ML IV SCH ×3 (05:53→21:11)
[2021-01-14 07:37] VITALS: BP 125/79
[2021-01-14] MEDS: SENNA/DOCUSATE TABLET PO SCH (09:00)
[2021-01-14] MEDS: METOPROLOL SUCCINATE 50 MG TAB.ER.24H PO SCH (09:10)
[2021-01-14] MEDS: ASPIRIN 81 MG TABLET EC PO SCH (09:10)
[2021-01-14 13:38] VITALS: BP 108/68
[2021-01-14 20:09] VITALS: BP 124/73
[2021-01-14] MEDS: ATORVASTATIN 40 MG TABLET PO SCH (21:11)
[2021-01-15 02:11] VITALS: BP 124/77
[2021-01-15] MEDS: MEROPENEM 1 GM in SODIUM CHLORIDE 0.9% 100 ML IV SCH ×2 (04:56→14:04)
[2021-01-15] MEDS: HEPARIN 5,000 UNITS/ML, 1ML SQ SCH ×2 (04:57→14:04)
[2021-01-15 07:49] VITALS: BP 123/76
[2021-01-15] MEDS: METOPROLOL SUCCINATE 50 MG TAB.ER.24H PO SCH (08:25)
[2021-01-15] MEDS: ASPIRIN 81 MG TABLET EC PO SCH (08:25)
[2021-01-15] MEDS: SENNA/DOCUSATE TABLET PO SCH (08:25)
[2021-01-15 13:14] VITALS: BP 126/78
[2021-01-15] MEDS ORDERED: FOSF3PAC PO (17:54)
[2021-01-15 18:53] VITALS: BP 131/81
== END 2021-01-15 18:55 | disposition home or self-care (01) | DRG 720 ==
LOC: ED 12:57 → EDIP 17:14 → 4WST 22:39
PROVIDERS: ADMIT Hospitalist; ATTEND Internal Medicine
PROC: 0T9B70Z Drainage of Bladder with Drainage Device, Via Natural or Artificial Opening (ICD-10-PCS; principal; 2021-01-08)
DX: A41.51 Sepsis due to Escherichia coli [E. coli] (principal); E43 Unspecified severe protein-calorie malnutrition; L89.313 Pressure ulcer of right buttock, stage 3; E87.2 Acidosis; G82.22 Paraplegia, incomplete; L89.323 Pressure ulcer of left buttock, stage 3; R62.7 Adult failure to thrive; Z89.612 Acquired absence of left leg above knee; N30.90 Cystitis, unspecified without hematuria; B96.20 Unspecified Escherichia coli [E. coli] as the cause of diseases classified elsewhere; D64.9 Anemia, unspecified; E78.5 Hyperlipidemia, unspecified; E87.6 Hypokalemia; F12.90 Cannabis use, unspecified, uncomplicated; F15.10 Other stimulant abuse, uncomplicated; I10 Essential (primary) hypertension; I25.10 Atherosclerotic heart disease of native coronary artery without angina pectoris; Z16.12 Extended spectrum beta lactamase (ESBL) resistance; Z16.24 Resistance to multiple antibiotics; J44.9 Chronic obstructive pulmonary disease, unspecified; B96.1 Klebsiella pneumoniae [K. pneumoniae] as the cause of diseases classified elsewhere; I73.9 Peripheral vascular disease, unspecified; R65.20 Severe sepsis without septic shock; X31.XXXA Exposure to excessive natural cold, initial encounter; Z59.0 Homelessness; Z86.73 Personal history of transient ischemic attack (TIA), and cerebral infarction without residual deficits; Z87.440 Personal history of urinary (tract) infections; Z87.891 Personal history of nicotine dependence; Z99.3 Dependence on wheelchair; Z79.899 Other long term (current) drug therapy; Z68.1 Body mass index [BMI] 19.9 or less, adult
CPT/HCPCS: 36415; 80048; 81001; 82040; 83605; 84145; 85025; 87040; 87077; 87086; 87106; 87184; 87186; 96365; G0378; J0696; J1644; J2185; J3480; J7030

== ENCOUNTER 2021-01-23 07:25 | Emergency (ER) | payer MEDICAID ==
[~2021-01-23] VITALS: Ht 177.8 cm; Wt 72.0 kg
[~2021-01-23 07:25] MED LIST changes: +FOSF3PAC PO
--- NOTE | 2021-01-23 09:19 | NUR ---
HOSIERY OPERATOR: PT TO ROOM FROM LOBBY, VIA W/C
[2021-01-23] MEDS ORDERED: BACITRACIN OINT 500U/GM, 15 GM TP PRN (10:00)
--- NOTE | 2021-01-23 10:28 | NUR ---
sacral wounds appears to be in good condition (all variables considered) in c/t writers last exam. Cleansed with wound cleansed, calazime applied then silicone dressings
[2021-01-23 12:48] VITALS: BP 125/90
== END 2021-01-23 12:50 | disposition home or self-care (01) ==
LOC: ED 08:03
DX: L89.322 Pressure ulcer of left buttock, stage 2 (principal); L89.312 Pressure ulcer of right buttock, stage 2
CPT/HCPCS: 99282

== ENCOUNTER 2021-01-27 19:40 | Emergency (ER) | payer MEDICAID ==
[~2021-01-27] VITALS: Ht 180.3 cm; Wt 70.0 kg
[2021-01-27] MEDS ORDERED: ASPIRIN 81 MG TABLET CHEW PO ONE (20:00)
[2021-01-27] MEDS ORDERED: ASPIRIN 81 MG TABLET CHEW ONE (20:08)
[2021-01-27 20:10] LABS: BASOPHILS % (AUTO) 1 % (0-1); EOSINOPHILS % (AUTO) 3 % (1-7); LYMPHOCYTES % (AUTO) 16 % (22-44); MEAN CORPUSCULAR HGB CONC 33.5 g/dL (33.2-36.2); MEAN PLATELET VOLUME 7.1 fL (7.4-10.4); MONOCYTES % (AUTO) 9 % (2-9); NEUTROPHILS % (AUTO) 71 % (42-75); PLATELET COUNT 543 x10^3/uL (130-400); RED BLOOD COUNT 4.37 x10^6/uL (4.38-5.82)
--- NOTE | 2021-01-27 20:15 | NUR ---
SPOKE WITH JANEL SPICER ABOUT PATIENTS INABILITY TO CARE FOR [facility]SELF [facility] DUE TO NEUROGENIC BLADDER AND LEFT BKA. PATIENT STATES HE CAN'T FIT INTO THE BATHROOM AT THE SNF WITH HIS WHEELCHAIR AND THEY ARE PROVIDING HIM WITH NO ASSISTANCE. PATIENT STATES HE HAS TO SELF CATH BUT HIS SUPPLIES KEEP GETTING STOLEN AT THE SNF. PATIENT STATES HE HAD A WOUND CARE FOLLOW UP FOR THE PRESSURE ULCERS ON HIS BUTTOCKS BUT HE IS UNABLE TO GET THERE DUE TO TRANSPORTATION ISSUES. THIS RN IS REQUESTING JANEL SPICER TO INITIATE SOCIAL WORK CONSULT.
[2021-01-27 20:22] LABS: ALBUMIN 2.5 g/dL (3.4-5.0); ANION GAP 6 mmol/L (5-15); CALCIUM 8.2 mg/dL (8.5-10.1); CHLORIDE 105 mmol/L (98-107); CREATININE 0.78 mg/dL (0.7-1.3)
[2021-01-27 20:26] LABS: TROPONIN I < 0.015 ng/mL (0.000-0.045)
--- NOTE | 2021-01-27 20:45 | NUR ---
PATIENT INCONTIENT OF STOOL/ URINE AND STATES HE CAN'T FEEL WHEN HE HAS TO USE THE BATHROOM. PATIENT PROVIDED WITH A BED BATH, NEW SHEETS, AND WILL PROVIDE PATIENT WITH SCRUB PANTS/ TOP PATIENT HAS NO OTHER CLOTHES. PATIENT HAS UNSTAGABLE/ STAGE 4 ULCERS THROUGHOUT BUTTOCKS AND SCROTUM. RADIO DIVISION CAPTAIN NAYAN AWARE.
[2021-01-27 22:54] LABS: TROPONIN I < 0.015 ng/mL (0.000-0.045)
--- NOTE | 2021-01-28 00:13 | NUR ---
WOUNDS DRESSED TO BUTTOCKS WITH AQUA FOAMS. PATIENT PLACED IN SCRUB BOTTOMS/ TOP. PATIENT PROVIDED WITH NEW SOCKS AND URINALS. PATIENT ASSISTED TO THE FRONT AND PROVIDED WITH TAXI VOUCHER.
[2021-01-28 00:15] VITALS: BP 120/82
== END 2021-01-28 00:17 | disposition home or self-care (01) ==
LOC: ED 21:12
DX: R07.89 Other chest pain (principal); M54.6 Pain in thoracic spine; L89.152 Pressure ulcer of sacral region, stage 2; Z72.9 Problem related to lifestyle, unspecified; Z59.0 Homelessness; J44.9 Chronic obstructive pulmonary disease, unspecified; I25.10 Atherosclerotic heart disease of native coronary artery without angina pectoris
CPT/HCPCS: 36415; 71045; 80048; 82040; 84484; 85025; 93005; 99285

== ENCOUNTER 2021-03-03 10:17 | Emergency (ER) | payer MEDICAID ==
[~2021-03-03] VITALS: Ht 180.3 cm; Wt 64.0 kg
[~2021-03-03 10:17] MED LIST changes: +POTA-143 PO; -POTA20TA6 PO
--- NOTE | 2021-03-03 10:24 | NUR ---
PT IN BATHROOM CLEANING UP. PER EMS, PT WAS POOPING AND VOIDING ON SELF AND NOT PROVIDING HIMSELF BASIC NEEDS AT [facility], SO THEY KICKED HIM OUT. THEY THEN CALLED EMS THEY WERE CONCERNED ABOUT HIS WELL BEING. PT FOUND TO HAVE SORES ON BUTTOCKS FROM SITTING IN OWN FECES.
--- NOTE | 2021-03-03 12:12 | NUR ---
PT IN HOSPITAL GOWN. PT RESTING CALMLY IN BED AT THIS TIME. NO STATED NEEDS CURRENTLY. WOUND CARE DRESSINGS ORDERED AND MEAL TRAY ORDERED WELL PER ERP REQUEST
--- NOTE | 2021-03-03 12:54 | NUR ---
PT GIVEN MEAL TRAY. NO TATED NEEDS AT THIS TIME. PT RESTING CALMLY IN BED WATCHING TV.
--- NOTE | 2021-03-03 14:06 | NUR ---
WOUND CARE DONE. PT GETTING DRESSED
[2021-03-03 15:01] VITALS: BP 163/90
== END 2021-03-03 15:04 | disposition home or self-care (01) ==
LOC: ED 10:26
DX: L89.309 Pressure ulcer of unspecified buttock, unspecified stage (principal); Z72.9 Problem related to lifestyle, unspecified; J44.9 Chronic obstructive pulmonary disease, unspecified; I25.10 Atherosclerotic heart disease of native coronary artery without angina pectoris; F17.200 Nicotine dependence, unspecified, uncomplicated
CPT/HCPCS: 99283